=== PATIENT | female | born 1975 | race Caucasian/White ===

== ENCOUNTER 2020-05-31 17:38 | Inpatient (IN) | payer OTHER ==
[~2020-05-31] VITALS: Ht 180.3 cm; Wt 98.9 kg
[~2020-05-31 17:38] MED LIST: AMOX1TAB61 PO; CYCL10TA2 PO; DULA0.75 SQ; FLUC100T7 PO; INSU100C SQ; INSU100I13 SQ; METF500T16 PO; PANT20TA2 PO; PREG-9 PO
--- NOTE | 2020-05-31 18:33 | PHYS DOC ---
Past Medical History Past Medical History: Diabetes-Type II, Fibromyalgia Past Surgical History: Hysterectomy Smoking Status: Current Every Day Smoker Alcohol Use: None General Adult EDM: Chief Complaint: TOE PROBLEM HPI: HPI: Patient is a 45 year old female with left great toe pain over the last 2 weeks. Patient had some outside imaging which evidently showed glass in the area. Patient's been followed with wound care and there is an ulcer present and p atient was to be a direct admit for amputation. Patient denies any fevers or chills. Patient states the pain is moderate and worse with palpation and movement. Patient states the pain is nonradiating. Review of Systems: Review of Systems: Constitutional: Denies fever or chills Eyes: Denies change in visual acuity HENT: Denies sore throat Respiratory: Denies cough or shortness of breath Cardiovascular: Denies chest pain or edema GI: Denies abdominal pain, nausea, vomiting, or diarrhea : Denies dysuria Musculoskeletal: Denies back pain or joint pain Integument: Denies rash Neurologic: Denies headache or focal weakness Psychiatric: Denies depression or anxiety Heart Score: Risk Factors: Risk Factors: DM, Current or recent (<one month) smoker, HTN, HLP, family history of CAD, obesity. Risk Scores: Score 0 - 3: 2.5% MACE over next 6 weeks - Discharge Home Score 4 - 6: 20.3% MACE over next 6 weeks - Admit for Clinical Observation Score 7 - 10: 72.7% MACE over next 6 weeks - Early Invasive Strategies Allergies: Allergies: Allergies Coded Allergies Type Severity Reaction Last Updated Verified No Known Drug Allergies 06/14/19 No Physical Exam: PE: Constitutional: Well developed, well nourished, no acute distress, non-toxic appearance. HENT: No trismus Eyes: Conjunctiva clear, EOMI Neck: Normal range of motion, no tenderness, supple, no stridor. 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 Lungs & Thorax: No respiratory distress Abdomen: No distension Skin: Diffuse: Intact, no rash Back: Full ROM Extremities: Partial amputation already present on left great toe. There is mild erythema. There is a mild ulceration at the base. Neurologic: Alert and oriented X 3, normal motor function, , no focal deficits noted. Psychologic: Affect normal, judgement normal, mood normal. Current Patient Data: Labs: Laboratory Tests Test 05/31/20 18:00 05/31/20 21:43 White Blood Count 5.2 x10^3/uL Red Blood Count 5.00 x10^6/uL Hemoglobin 14.9 g/dL Hematocrit 44.0 % Mean Corpuscular Volume 88 fL Mean Corpuscular Hemoglobin 30 pg Mean Corpuscular Hemoglobin Concent 34 g/dL Red Cell Distribution Width 13.2 % Platelet Count 242 x10^3/uL Neutrophils (%) (Auto) 44 % Lymphocytes (%) (Auto) 46 % Monocytes (%) (Auto) 8 % Eosinophils (%) (Auto) 2 % Basophils (%) (Auto) 1 % Neutrophils # (Auto) 2.3 x10^3/uL Lymphocytes # (Auto) 2.4 x10^3/uL Monocytes # (Auto) 0.4 x10^3/uL Eosinophils # (Auto) 0.1 x10^3/uL Basophils # (Auto) 0.0 x10^3/uL Prothrombin Time 12.0 SEC Prothromb Time International Ratio 0.9 Activated Partial Thromboplast Time 32 SEC Sodium Level 132 mmol/L Potassium Level 3.9 mmol/L Chloride Level 94 mmol/L Carbon Dioxide Level 25 mmol/L Anion Gap 13 Blood Urea Nitrogen 17 mg/dL Creatinine 0.6 mg/dL Estimated GFR (Cockcroft-Gault) 108.6 BUN/Creatinine Ratio 28 Glucose Level 402 mg/dL Calcium Level 9.0 mg/dL Total Bilirubin 0.2 mg/dL Aspartate Amino Transf (AST/SGOT) 26 U/L Alanine Aminotransferase (ALT/SGPT) 27 U/L Alkaline Phosphatase 69 U/L Total Protein 7.1 g/dL Albumin 3.3 g/dL Albumin/Globulin Ratio 0.9 Glucose (Fingerstick) 327 mg/dL Vital Signs: Vital Signs Date Time Temp Pulse Resp B/P (MAP) Pulse Ox O2 Delivery O2 Flow Rate FiO2 05/31/20 21:00 80 18 136/84 (101) 100 Room Air 05/31/20 20:00 82 18 129/82 (98) 98 Room Air 05/31/20 19:00 78 18 135/78 (97) 97 Room Air 05/31/20 17:48 98.4 90 18 140/73 (95) 100 Room Air 98.4 Vital Signs Date Time Temp Pulse Resp B/P (MAP) Pulse Ox O2 Delivery O2 Flow Rate FiO2 05/31/20 17:48 98.4 90 18 140/73 (95) 100 Room Air 98.4 EKG: EKG: [] Radiology/Procedures: Radiology/Procedures: [][place] [address] IMAGING REPORT Signed PATIENT: AMAYA NEVAREZ ACCOUNT: [id number] : 1975 LOCATION: ER AGE: 45 SEX: F EXAM STATUS: REG ER ORD. PHYSICIAN: ROGELIO FOUNTAIN MD REASON: infection, r/o fb PROCEDURE: FOOT LEFT 3V 3 view left foot HISTORY: Clinical certain for possible foreign body AP lateral oblique views There has been prior amputation of the distal phalanx of the great toe. The remaining visualized osseous structures appear normal. There is no radiopaque foreign body. IMPRESSION: No acute findings. Electronically signed by: Luisito Valdes III, MD (05/31/2020 7:30 PM) [facility] DICTATED and SIGNED BY: LUISITO VALDES III, MD DATE: 05/31/20 [id number] [place] [address] IMAGING REPORT Signed PATIENT: AMAYA NEVAREZ ACCOUNT: [id number] : 1975 LOCATION: ER AGE: 45 SEX: F EXAM STATUS: REG ER ORD. PHYSICIAN: ROGELIO FOUNTAIN MD REASON: preop PROCEDURE: PORTABLE CHEST 1V Examination: PORTABLE CHEST 1V History: Preoperative evaluation Comparison/Correlation: None Findings: Portable frontal view chest was obtained. Heart size and pulmonary vessels are normal. No infiltrate or pleural effusion. No pneumothorax. Bony structures are unremarkable. Impression: No active disease. Electronically signed by: Jimmy iFsh MD (05/31/2020 7:13 PM) [place] [id number] DICTATED and SIGNED BY: JIMMY FISH MD DATE: 05/31/201912 Course & Med Decision Making: Course & Med Decision Making Pertinent Labs and Imaging studies reviewed. (See chart for details) [] Discussed with Dr. Hagen who will admit the patient. Preop test is been ordered. Patient clinically stable. Patient given dose IV antibiotics. Discussed the case with Dr. Hagen who says to put a vascular consult in computer which was done. Dragon Disclaimer: Dragon Disclaimer: This electronic medical record was generated, in whole or in part, using a voice recognition dictation system. Departure Departure Impression: Primary Impression: Toe osteomyelitis, left Disposition: ADMITTED INPATIENT Admitting Physician: REBECCA (naheed) Condition: STABLE Referrals: DON ESPOSITO (PCP) Justicifation of Admission Dx: Justifications for Admission: Justification of Admission Dx: Yes ROGELIO FOUNTAIN MD May 31, 2020 18:33
[2020-05-31 18:43] LABS: BASO % 1 % (0-3); EOS # 0.1 x10^3/uL (0.0-0.7); EOS % 2 % (0-3); HEMOGLOBIN 14.9 g/dL (12.0-15.5); LYMPH # 2.4 x10^3/uL (1.0-4.8); LYMPH % 46 % (24-48); MEAN CORPUSCULAR HEMOGLOBIN 30 pg (25-35); MEAN CORPUSCULAR HGB CONC 34 g/dL (31-37); MEAN CORPUSCULAR VOLUME 88 fL (79-100); MONO # 0.4 x10^3/uL (0.0-1.1); MONO % 8 % (0-9); NEUT # 2.3 x10^3/uL (1.8-7.7); NEUT % 44 % (31-73); PLATELET COUNT 242 x10^3/uL (140-400); RED CELL DISTRIBUTION WIDTH 13.2 % (11.5-14.5); WHITE BLOOD COUNT 5.2 x10^3/uL (4.0-11.0)
[2020-05-31] MEDS ORDERED: MORPHINE SULFATE 4 MG/ML VIAL. IV ONE (18:45)
[2020-05-31] MEDS ORDERED: ONDANSETRON PF 4 MG/2 ML VIAL. IV PRN (18:45)
[2020-05-31] MEDS ORDERED: MORPHINE SULFATE 2 MG/ML VIAL. IV PRN (18:45)
[2020-05-31 18:56] LABS: CREATININE 0.6 mg/dL (0.6-1.0); GFR 108.6; POTASSIUM 3.9 mmol/L (3.5-5.1)
[2020-05-31 18:59] LABS: ALBUMIN 3.3 g/dL (3.4-5.0); ALBUMIN/GLOBULIN RATIO 0.9 (1.0-1.7); TOTAL BILIRUBIN 0.2 mg/dL (0.2-1.0); TOTAL PROTEIN 7.1 g/dL (6.4-8.2)
[2020-05-31] MEDS ORDERED: VANCOMYCIN 1GM IVPB FOR OMNI 250 ML IV ONE (19:00)
--- NOTE | 2020-05-31 19:16 | EKG ---
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
--- NOTE | 2020-05-31 19:16 | RAD ---
Examination: PORTABLE CHEST 1V History: Preoperative evaluation Comparison/Correlation: None Findings: Portable frontal view chest was obtained. Heart size and pulmonary vessels are normal. No infiltrate or pleural effusion. No pneumothorax. Bony structures are unremarkable. Impression: No active disease. Electronically signed by: Jimmy Maria MD (05/31/2020 7:13 PM) [facility]
--- NOTE | 2020-05-31 19:33 | RAD ---
3 view left foot HISTORY: Clinical certain for possible foreign body AP lateral oblique views There has been prior amputation of the distal phalanx of the great toe. The remaining visualized osseous structures appear normal. There is no radiopaque foreign body. IMPRESSION: No acute findings. Electronically signed by: Jasper Perez III, MD (05/31/2020 7:30 PM) [facility]
[2020-05-31] MEDS ORDERED: HYDROmorphone 2 MG/ML VIAL IV PRN (19:45)
--- NOTE | 2020-05-31 19:46 | PDOC1 ---
History and Physical Date of Admission Date of Admission DATE: 05/31/20 TIME: 19:45 Identification/Chief Complaint Chief Complaint seen in [place] , 45 year old female with left great toe pain over the last 2 weeks. Patient's been followed with wound care and there is an ulcer present // tentative plans admit for amputation. denies any fevers or chills. // pain is moderate and worse with palpation and movement. // pain is nonradiating., HAS KNOWN PVD 2018 Past Medical History Past Medical History Past Medical History Past Medical History Past Medical History: Diabetes-Type II, Fibromyalgia HX DIABETES X 14 YRS Past Surgical History: Hysterectomy Smoking Status: Current Every Day Smoker Alcohol Use: None FHX COPD Pulmonary: No pertinent hx Heme/Onc: No pertinent hx Rheumatologic: Fibromyalgia Infectious disease: Other (osteomyelitis toe) ENT: No pertinent hx Endocrine: Diabetes Past Surgical History Past Surgical History: Hysterectomy Family History Family History PMH: PMH: DM, fibromyalgia, neuropathy, PAD hysterectomy FH: Family History: Other (adopted) Social History: Smoke: <1 pack per day ALCOHOL: rare Drugs: None Family History: High Cholestrol, Hypertension Social History Smoke: <1 pack per day ALCOHOL: occassional Drugs: None Current Medications Current Medications Current Medications Morphine Sulfate (Morphine Sulfate) 4 mg 1X ONCE IV Last administered on 05/31/20at 18:44; Start 05/31/20 at 18:45; Stop 05/31/20 at 18:46; Status DC Vancomycin HCl 250 ml @ 250 mls/hr 1X ONCE IV Last administered on 05/31/20at 18:44; Start 05/31/20 at 19:00; Stop 05/31/20 at 19:59 Ondansetron HCl (Zofran) 4 mg PRN Q8HRS PRN IV NAUSEA/VOMITING; Start 05/31/20 at 18:45; Stop 06/01/20 at 18:44 Morphine Sulfate (Morphine Sulfate) 2 mg PRN Q2HR PRN IV PAIN; Start 05/31/20 at 18:45; Stop 05/31/20 at 19:34; Status DC Hydromorphone HCl (Dilaudid) 1 mg PRN Q3HRS PRN IV PAIN Last administered on 05/31/20at 19:41; Start 05/31/20 at 19:45; Stop 06/01/20 at 19:44 Insulin Human Regular (HumuLIN R VIAL) 6 unit 1X SQ ; Start 05/31/20 at 20:15 Active Scripts Active Humalog (Insulin Lispro) 100 Unit/1 Ml Cartridge 15 Unit SQ TID 30 Days Protonix (Pantoprazole Sodium) 20 Mg Tablet.dr 40 Mg PO DAILY 30 Days Lantus Solostar (Insulin Glargine,Hum.rec.anlog) 100 Unit/1 Ml Insuln.pen 40 Unit SQ QHS 30 Days Diflucan (Fluconazole) 100 Mg Tablet 100 Mg PO DAILY 5 Days Augmentin 875-125 Tablet (Amoxicillin/Potassium Clav) 1 Each Tablet 1 Tab PO BID 5 Days Reported Trulicity (Dulaglutide) 0.75 Mg/0.5 Ml Pen.injctr 0.75 Mg SQ WEEKLY Metformin Hcl 500 Mg Tablet 500 Mg PO TIDWMEALS Cyclobenzaprine Hcl 10 Mg Tablet 1 Tab PO QHS PRN Lyrica (Pregabalin) 75 Mg Capsule 1 Cap PO DAILY07 Lyrica (Pregabalin) 75 Mg Capsule 3 Cap PO HS Allergies Allergies: Coded Allergies: No Known Drug Allergies (Unverified , 06/14/19) ROS Review of System Constitutional: Denies fever or chills Eyes: Denies change in visual acuity HENT: Denies sore throat Respiratory: Denies cough or shortness of breath Cardiovascular: Denies chest pain or edema GI: Denies abdominal pain, nausea, vomiting, or diarrhea : Denies dysuria Musculoskeletal: Denies back pain or joint pain Integument: Denies rash Neurologic: Denies headache or focal weakness Psychiatric: Denies depression or anxiety 14 pt ros otherwise neg PSYCHOLOGICAL ROS: No: Anxiety, Behavioral Disorder, Concentration difficultie, Decreased libido, Depression, Disorientation, Hallucinations, Hostility, Irritablity, Memory difficulties, Mood Swings, Obsessive thoughts, Physical abuse, Sexual abuse, Sleep disturbances, Suicidal ideation, Other ALLERGY AND IMMUNOLOGY: No: Hives, Insect Bite Sensitivity, Itchy/Watery Eyes, Nasal Congestion, Post Nasal Drip, Seasonal Allergies, Other Hematological and Lymphatic: No: Bleeding Problems, Blood Clots, Blood Transfusions, Brusing, Night Sweats, Pallor, Swollen Lymph Nodes, Other Respiratory: No: Cough, Hemoptysis, Orthopnea, Pleuritic Pain, Shortness of breath, SOB with excertion, Sputum Changes, Stridor, Tachypnea, Wheezing, Other Cardiovascular: No Chest Pain, No Palpitations, No Orthopnea, No Paroxysmal Noc. Dyspnea, No Edema, No Lt Headedness, No Other Gastrointestinal: No Nausea, No Vomiting, No Abdominal Pain, No Diarrhea, No Constipation, No Melena, No Hematochezia, No Other Musculoskeletal: Yes Gait Disturbance, Yes Joint Pain Neurological: Yes Gait Disturbance; No Behavorial Changes, No Bowel/Bladder ControlChng, No Confusion, No Dizziness, No Headaches, No Impaired Coord/balance, No Memory Loss, No Numbness/Tingling, No Seizures, No Speech Problems, No Tremors, No Visual Changes, No Weakness, No Other Skin: Yes Skin Lesion Changes Physical Exam Physical Exam Constitutional: Well developed, well nourished, no acute distress, non-toxic appearance. HENT: No trismus Eyes: Conjunctiva clear, EOMI Neck: Normal range of motion, no tenderness, supple, no stridor. 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 Lungs & Thorax: No respiratory distress Abdomen: No distension no tenderness Back: Full ROM Extremities: Partial amputation already present on left great toe. There is mild erythema. There is a mild ulceration at the base. Neurologic: Alert and oriented X 3, normal motor function, , no focal deficits noted. Psychologic: Affect normal, judgement normal, mood normal. General: Alert, Oriented X3, Cooperative, No acute distress HEENT: Atraumatic, PERRLA, EOMI, Mucous membr. moist/pink Lungs: Clear to auscultation Heart: RRR, no thrills, no gallops, no murmurs Breasts: Not examined Abdomen: Soft Rectal Exam: not examined PELVIC: Examination not indicated Extremities: No cyanosis Neuro: Normal speech, Strength at 5/5 X4 ext, Cranial nerves 3-12 NL Psych/Mental Status: Mental status NL, Mood NL Vitals Vitals Vital Signs Date Time Temp Pulse Resp B/P (MAP) Pulse Ox O2 Delivery O2 Flow Rate FiO2 05/31/20 17:48 98.4 90 18 140/73 (95) 100 Room Air 98.4 Labs Labs Laboratory Tests Test 05/31/20 18:00 White Blood Count 5.2 x10^3/uL (4.0-11.0) Red Blood Count 5.00 x10^6/uL (3.50-5.40) Hemoglobin 14.9 g/dL (12.0-15.5) Hematocrit 44.0 % (36.0-47.0) Mean Corpuscular Volume 88 fL (79-100) Mean Corpuscular Hemoglobin 30 pg (25-35) Mean Corpuscular Hemoglobin Concent 34 g/dL (31-37) Red Cell Distribution Width 13.2 % (11.5-14.5) Platelet Count 242 x10^3/uL (140-400) Neutrophils (%) (Auto) 44 % (31-73) Lymphocytes (%) (Auto) 46 % (24-48) Monocytes (%) (Auto) 8 % (0-9) Eosinophils (%) (Auto) 2 % (0-3) Basophils (%) (Auto) 1 % (0-3) Neutrophils # (Auto) 2.3 x10^3/uL (1.8-7.7) Lymphocytes # (Auto) 2.4 x10^3/uL (1.0-4.8) Monocytes # (Auto) 0.4 x10^3/uL (0.0-1.1) Eosinophils # (Auto) 0.1 x10^3/uL (0.0-0.7) Basophils # (Auto) 0.0 x10^3/uL (0.0-0.2) Prothrombin Time 12.0 SEC (11.7-14.0) Prothromb Time International Ratio 0.9 (0.8-1.1) Activated Partial Thromboplast Time 32 SEC (24-38) Sodium Level 132 mmol/L (136-145) Potassium Level 3.9 mmol/L (3.5-5.1) Chloride Level 94 mmol/L (98-107) Carbon Dioxide Level 25 mmol/L (21-32) Anion Gap 13 (6-14) Blood Urea Nitrogen 17 mg/dL (7-20) Creatinine 0.6 mg/dL (0.6-1.0) Estimated GFR (Cockcroft-Gault) 108.6 BUN/Creatinine Ratio 28 (6-20) Glucose Level 402 mg/dL (70-99) Calcium Level 9.0 mg/dL (8.5-10.1) Total Bilirubin 0.2 mg/dL (0.2-1.0) Aspartate Amino Transf (AST/SGOT) 26 U/L (15-37) Alanine Aminotransferase (ALT/SGPT) 27 U/L (14-59) Alkaline Phosphatase 69 U/L (46-116) Total Protein 7.1 g/dL (6.4-8.2) Albumin 3.3 g/dL (3.4-5.0) Albumin/Globulin Ratio 0.9 (1.0-1.7) Laboratory Tests Test 05/31/20 18:00 White Blood Count 5.2 x10^3/uL (4.0-11.0) Red Blood Count 5.00 x10^6/uL (3.50-5.40) Hemoglobin 14.9 g/dL (12.0-15.5) Hematocrit 44.0 % (36.0-47.0) Mean Corpuscular Volume 88 fL (79-100) Mean Corpuscular Hemoglobin 30 pg (25-35) Mean Corpuscular Hemoglobin Concent 34 g/dL (31-37) Red Cell Distribution Width 13.2 % (11.5-14.5) Platelet Count 242 x10^3/uL (140-400) Neutrophils (%) (Auto) 44 % (31-73) Lymphocytes (%) (Auto) 46 % (24-48) Monocytes (%) (Auto) 8 % (0-9) Eosinophils (%) (Auto) 2 % (0-3) Basophils (%) (Auto) 1 % (0-3) Neutrophils # (Auto) 2.3 x10^3/uL (1.8-7.7) Lymphocytes # (Auto) 2.4 x10^3/uL (1.0-4.8) Monocytes # (Auto) 0.4 x10^3/uL (0.0-1.1) Eosinophils # (Auto) 0.1 x10^3/uL (0.0-0.7) Basophils # (Auto) 0.0 x10^3/uL (0.0-0.2) Prothrombin Time 12.0 SEC (11.7-14.0) Prothromb Time International Ratio 0.9 (0.8-1.1) Activated Partial Thromboplast Time 32 SEC (24-38) Sodium Level 132 mmol/L (136-145) Potassium Level 3.9 mmol/L (3.5-5.1) Chloride Level 94 mmol/L (98-107) Carbon Dioxide Level 25 mmol/L (21-32) Anion Gap 13 (6-14) Blood Urea Nitrogen 17 mg/dL (7-20) Creatinine 0.6 mg/dL (0.6-1.0) Estimated GFR (Cockcroft-Gault) 108.6 BUN/Creatinine Ratio 28 (6-20) Glucose Level 402 mg/dL (70-99) Calcium Level 9.0 mg/dL (8.5-10.1) Total Bilirubin 0.2 mg/dL (0.2-1.0) Aspartate Amino Transf (AST/SGOT) 26 U/L (15-37) Alanine Aminotransferase (ALT/SGPT) 27 U/L (14-59) Alkaline Phosphatase 69 U/L (46-116) Total Protein 7.1 g/dL (6.4-8.2) Albumin 3.3 g/dL (3.4-5.0) Albumin/Globulin Ratio 0.9 (1.0-1.7) Images Images EX: F EXAM STATUS: ADM IN ORD. PHYSICIAN: ARCELIA FAITH MD REASON: ? PAD - tobacco abuse and DM PROCEDURE: ARTERIAL STUDY LOWER EXT BI Bilateral lower extremity arterial Doppler ultrasound HISTORY: Peripheral artery disease. Tobacco abuse. TECHNIQUE: Color Doppler, grayscale and duplex analysis performed of the right and left lower extremity arterial structures, from the common femoral artery through the runoff vessels. COMPARISON: None are available All velocity measurements are in centimeters per second. Right leg: Biphasic waveforms throughout, except for monophasic waveforms at the anterior tibial artery and dorsalis pedis artery. Critical segmental velocity elevation of the distal superficial femoral artery, 249, as compared with 120 at the mid superficial femoral artery, compatible with a significant or greater than 50% stenosis. Left leg: Biphasic common femoral artery and proximal superficial femoral artery. Monophasic waveforms distal to this. No evidence of critical segmental velocity elevation. IMPRESSION: 1. Findings compatible with significant greater than 50% stenosis at the right distal superficial femoral artery. 2. Extensive bilateral peripheral artery disease. Electronically signed by: Rich Mancia MD (06/15/2019 5:21 PM) [facility] DICTATED and SIGNED BY: RICH MANCIA MD DATE: 06/15/19 1721 SEX: F EXAM STATUS: REG ER ORD. PHYSICIAN: ROGELIO FOUNTAIN MD REASON: infection, r/o fb PROCEDURE: FOOT LEFT 3V 3 view left foot HISTORY: Clinical certain for possible foreign body AP lateral oblique views There has been prior amputation of the distal phalanx of the great toe. The remaining visualized osseous structures appear normal. There is no radiopaque foreign body. IMPRESSION: No acute findings. Electronically signed by: Luisito Valdes III, MD (05/31/2020 7:30 PM) [facility] DICTATED and SIGNED BY: LUISITO VALDES III, MD DATE: 05/31/201929 VTE Prophylaxis Ordered VTE Prophylaxis Devices: No VTE Pharmacological Prophylaxi: Yes Assessment/Plan Assessment/Plan IMPRESSION Diabetic foot infection, acute hx Left first toe osteomyelitis, status post left first toe amputation through the proximal phalanx with primary closure. 2018 prior amputation of the distal phalanx of the great t 06/2019 Findings compatible with significant greater than 50% stenosis at the right distal superficial femoral artery.Extensive bilateral peripheral artery disease. by arterial doppler Diabetes Tobacco abuse disorder morbid obesity hx diabetic neuropathy plan admit consult VASCULAR SURGERY BLOOD CULTUE X 1\ DVT PROPHYLAXIS Emperic iv antibiotics., vanc, zosyn pending id consult wound care to see ID CONSULT a1c covid-19 screening D/W ER DR Bautistation of Admission Dx: Justifications for Admission: Justification of Admission Dx: Yes Cellulitis: Cellulitis Comments: DIABETIC FOOT, PVD MANNY SANTIZO MD May 31, 2020 19:46
[2020-05-31] MEDS ORDERED: INSULIN REGULAR 100 UNIT/ML 3ML VIAL. SQ SCH (20:15)
[2020-05-31] MEDS ORDERED: INSULIN REGULAR 100 UNIT/ML 3ML VIAL. SQ ONE (21:45)
[2020-05-31] MEDS ORDERED: INSULIN REGULAR 100 UNIT/ML 3ML VIAL. ONE (21:45)
[2020-05-31] MEDS: PIPERACILLIN/TAZOBACTAM 3.375 GM in IV NORMAL SALINE 50ML 50 ML IV SCH ×2 (21:58→22:53)
[2020-05-31 22:25] VITALS: BP 123/77
[2020-05-31] MEDS: PREGABALIN 75 MG CAPSULE PO SCH (22:54)
[2020-05-31] MEDS: IV NORMAL SALINE 1000ML BAG 1,000 ML IV SCH (23:27)
[2020-05-31] MEDS: HYDROmorphone 2 MG/ML VIAL IV PRN (23:28)
[2020-06-01] VITALS (10 sets, daily range): BP systolic 95–128; BP diastolic 46–74
[2020-06-01] MEDS: HYDROmorphone 2 MG/ML VIAL IV PRN ×4 (02:21→22:12)
[2020-06-01] MEDS: PIPERACILLIN/TAZOBACTAM 3.375 GM in IV NORMAL SALINE 50ML 50 ML IV SCH ×3 (05:45→17:27)
[2020-06-01] MEDS: PREGABALIN 75 MG CAPSULE PO SCH ×3 (06:37→22:12)
[2020-06-01] MEDS: PANTOPRAZOLE 40 MG TABLET.DR. PO SCH (07:30)
[2020-06-01] MEDS: IV NORMAL SALINE 1000ML BAG 1,000 ML IV SCH ×2 (07:56→19:00)
--- NOTE | 2020-06-01 10:40 | NUR ---
SW following. Discussed with RN, pt from home with family, room air, NPO. Pt follows at the wound clinic, tentative plans for amputation. RN advised no SW needs at this time, SW will continue to follow.
[2020-06-01] MEDS: traMADol 50 MG TABLET PO PRN ×2 (10:48→17:45)
--- NOTE | 2020-06-01 12:09 | PDOC ---
PROGRESS NOTES Chief Complaint Chief Complaint Diabetic foot infection, acute hx Left first toe osteomyelitis, status post left first toe amputation through the proximal phalanx with primary closure. 2018 prior amputation of the distal phalanx of the great t 06/2019 Findings compatible with significant greater than 50% stenosis at the right distal superficial femoral artery.Extensive bilateral peripheral artery disease. by arterial doppler Diabetes Tobacco abuse disorder morbid obesity hx diabetic neuropathy Plan: follow VASCULAR SURGERY recommendations follow BLOOD CULTUE X 1\ DVT PROPHYLAXIS Empiric iv antibiotics., vanc, zosyn pending id consult wound care to see ID CONSULT [id number] covid-19 screening negative History of Present Illness History of Present Illness No acute events reported overnight, case discussed with nursing staff patient in no acute distress no complaints during my visit Vitals Vitals Vital Signs Date Time Temp Pulse Resp B/P (MAP) Pulse Ox O2 Delivery O2 Flow Rate FiO2 06/01/20 11:53 16 Room Air 06/01/20 11:06 97.4 81 110/66 (81) 95 97.4 Physical Exam General: Alert, Oriented X3, Cooperative, No acute distress Abdomen: Soft Extremities: No cyanosis Labs LABS Laboratory Tests Test 05/31/20 18:00 05/31/20 21:43 06/01/20 11:56 White Blood Count 5.2 x10^3/uL (4.0-11.0) Red Blood Count 5.00 x10^6/uL (3.50-5.40) Hemoglobin 14.9 g/dL (12.0-15.5) Hematocrit 44.0 % (36.0-47.0) Mean Corpuscular Volume 88 fL (79-100) Mean Corpuscular Hemoglobin 30 pg (25-35) Mean Corpuscular Hemoglobin Concent 34 g/dL (31-37) Red Cell Distribution Width 13.2 % (11.5-14.5) Platelet Count 242 x10^3/uL (140-400) Neutrophils (%) (Auto) 44 % (31-73) Lymphocytes (%) (Auto) 46 % (24-48) Monocytes (%) (Auto) 8 % (0-9) Eosinophils (%) (Auto) 2 % (0-3) Basophils (%) (Auto) 1 % (0-3) Neutrophils # (Auto) 2.3 x10^3/uL (1.8-7.7) Lymphocytes # (Auto) 2.4 x10^3/uL (1.0-4.8) Monocytes # (Auto) 0.4 x10^3/uL (0.0-1.1) Eosinophils # (Auto) 0.1 x10^3/uL (0.0-0.7) Basophils # (Auto) 0.0 x10^3/uL (0.0-0.2) Prothrombin Time 12.0 SEC (11.7-14.0) Prothromb Time International Ratio 0.9 (0.8-1.1) Activated Partial Thromboplast Time 32 SEC (24-38) Sodium Level 132 mmol/L (136-145) Potassium Level 3.9 mmol/L (3.5-5.1) Chloride Level 94 mmol/L (98-107) Carbon Dioxide Level 25 mmol/L (21-32) Anion Gap 13 (6-14) Blood Urea Nitrogen 17 mg/dL (7-20) Creatinine 0.6 mg/dL (0.6-1.0) Estimated GFR (Cockcroft-Gault) 108.6 BUN/Creatinine Ratio 28 (6-20) Glucose Level 402 mg/dL (70-99) Calcium Level 9.0 mg/dL (8.5-10.1) Total Bilirubin 0.2 mg/dL (0.2-1.0) Aspartate Amino Transf (AST/SGOT) 26 U/L (15-37) Alanine Aminotransferase (ALT/SGPT) 27 U/L (14-59) Alkaline Phosphatase 69 U/L (46-116) Total Protein 7.1 g/dL (6.4-8.2) Albumin 3.3 g/dL (3.4-5.0) Albumin/Globulin Ratio 0.9 (1.0-1.7) Glucose (Fingerstick) 327 mg/dL (70-99) 306 mg/dL (70-99) Review of Systems Review of Systems 10 point review of system reviewed and found negative noncontributory only pertinent as per HPI Comment Review of Relevant I have reviewed the following items filemon (where applicable) has been applied. Labs Laboratory Tests Test 05/31/20 18:00 05/31/20 21:43 06/01/20 11:56 White Blood Count 5.2 x10^3/uL (4.0-11.0) Red Blood Count 5.00 x10^6/uL (3.50-5.40) Hemoglobin 14.9 g/dL (12.0-15.5) Hematocrit 44.0 % (36.0-47.0) Mean Corpuscular Volume 88 fL (79-100) Mean Corpuscular Hemoglobin 30 pg (25-35) Mean Corpuscular Hemoglobin Concent 34 g/dL (31-37) Red Cell Distribution Width 13.2 % (11.5-14.5) Platelet Count 242 x10^3/uL (140-400) Neutrophils (%) (Auto) 44 % (31-73) Lymphocytes (%) (Auto) 46 % (24-48) Monocytes (%) (Auto) 8 % (0-9) Eosinophils (%) (Auto) 2 % (0-3) Basophils (%) (Auto) 1 % (0-3) Neutrophils # (Auto) 2.3 x10^3/uL (1.8-7.7) Lymphocytes # (Auto) 2.4 x10^3/uL (1.0-4.8) Monocytes # (Auto) 0.4 x10^3/uL (0.0-1.1) Eosinophils # (Auto) 0.1 x10^3/uL (0.0-0.7) Basophils # (Auto) 0.0 x10^3/uL (0.0-0.2) Prothrombin Time 12.0 SEC (11.7-14.0) Prothromb Time International Ratio 0.9 (0.8-1.1) Activated Partial Thromboplast Time 32 SEC (24-38) Sodium Level 132 mmol/L (136-145) Potassium Level 3.9 mmol/L (3.5-5.1) Chloride Level 94 mmol/L (98-107) Carbon Dioxide Level 25 mmol/L (21-32) Anion Gap 13 (6-14) Blood Urea Nitrogen 17 mg/dL (7-20) Creatinine 0.6 mg/dL (0.6-1.0) Estimated GFR (Cockcroft-Gault) 108.6 BUN/Creatinine Ratio 28 (6-20) Glucose Level 402 mg/dL (70-99) Calcium Level 9.0 mg/dL (8.5-10.1) Total Bilirubin 0.2 mg/dL (0.2-1.0) Aspartate Amino Transf (AST/SGOT) 26 U/L (15-37) Alanine Aminotransferase (ALT/SGPT) 27 U/L (14-59) Alkaline Phosphatase 69 U/L (46-116) Total Protein 7.1 g/dL (6.4-8.2) Albumin 3.3 g/dL (3.4-5.0) Albumin/Globulin Ratio 0.9 (1.0-1.7) Glucose (Fingerstick) 327 mg/dL (70-99) 306 mg/dL (70-99) Laboratory Tests Test 05/31/20 18:00 05/31/20 21:43 06/01/20 11:56 White Blood Count 5.2 x10^3/uL (4.0-11.0) Red Blood Count 5.00 x10^6/uL (3.50-5.40) Hemoglobin 14.9 g/dL (12.0-15.5) Hematocrit 44.0 % (36.0-47.0) Mean Corpuscular Volume 88 fL (79-100) Mean Corpuscular Hemoglobin 30 pg (25-35) Mean Corpuscular Hemoglobin Concent 34 g/dL (31-37) Red Cell Distribution Width 13.2 % (11.5-14.5) Platelet Count 242 x10^3/uL (140-400) Neutrophils (%) (Auto) 44 % (31-73) Lymphocytes (%) (Auto) 46 % (24-48) Monocytes (%) (Auto) 8 % (0-9) Eosinophils (%) (Auto) 2 % (0-3) Basophils (%) (Auto) 1 % (0-3) Neutrophils # (Auto) 2.3 x10^3/uL (1.8-7.7) Lymphocytes # (Auto) 2.4 x10^3/uL (1.0-4.8) Monocytes # (Auto) 0.4 x10^3/uL (0.0-1.1) Eosinophils # (Auto) 0.1 x10^3/uL (0.0-0.7) Basophils # (Auto) 0.0 x10^3/uL (0.0-0.2) Prothrombin Time 12.0 SEC (11.7-14.0) Prothromb Time International Ratio 0.9 (0.8-1.1) Activated Partial Thromboplast Time 32 SEC (24-38) Sodium Level 132 mmol/L (136-145) Potassium Level 3.9 mmol/L (3.5-5.1) Chloride Level 94 mmol/L (98-107) Carbon Dioxide Level 25 mmol/L (21-32) Anion Gap 13 (6-14) Blood Urea Nitrogen 17 mg/dL (7-20) Creatinine 0.6 mg/dL (0.6-1.0) Estimated GFR (Cockcroft-Gault) 108.6 BUN/Creatinine Ratio 28 (6-20) Glucose Level 402 mg/dL (70-99) Calcium Level 9.0 mg/dL (8.5-10.1) Total Bilirubin 0.2 mg/dL (0.2-1.0) Aspartate Amino Transf (AST/SGOT) 26 U/L (15-37) Alanine Aminotransferase (ALT/SGPT) 27 U/L (14-59) Alkaline Phosphatase 69 U/L (46-116) Total Protein 7.1 g/dL (6.4-8.2) Albumin 3.3 g/dL (3.4-5.0) Albumin/Globulin Ratio 0.9 (1.0-1.7) Glucose (Fingerstick) 327 mg/dL (70-99) 306 mg/dL (70-99) Medications Current Medications Morphine Sulfate (Morphine Sulfate) 4 mg 1X ONCE IV Last administered on 05/31/20at 18:44; Start 05/31/20 at 18:45; Stop 05/31/20 at 18:46; Status DC Vancomycin HCl 250 ml @ 250 mls/hr 1X ONCE IV Last administered on 05/31/20at 18:44; Start 05/31/20 at 19:00; Stop 05/31/20 at 19:59; Status DC Ondansetron HCl (Zofran) 4 mg PRN Q8HRS PRN IV NAUSEA/VOMITING; Start 05/31/20 at 18:45; Stop 06/01/20 at 18:44 Morphine Sulfate (Morphine Sulfate) 2 mg PRN Q2HR PRN IV PAIN; Start 05/31/20 at 18:45; Stop 05/31/20 at 19:34; Status DC Hydromorphone HCl (Dilaudid) 1 mg PRN Q3HRS PRN IV PAIN Last administered on 05/31/20at 19:41; Start 05/31/20 at 19:45; Stop 05/31/20 at 19:45; Status DC Insulin Human Regular (HumuLIN R VIAL) 6 unit 1X SQ ; Start 05/31/20 at 20:15; Stop 05/31/20 at 21:38; Status DC Pregabalin (Lyrica) 75 mg DAILY07 PO Last administered on 06/01/20at 06:37; Start 06/01/20 at 07:00 Pregabalin (Lyrica) 225 mg HS PO Last administered on 05/31/20at 22:54; Start 05/31/20 at 21:00 Non-Formulary Medication (Dulaglutide (Trulicity)) 0.75 mg WEEKLY SQ ; Start 06/07/20 at 09:00; Status UNV Pantoprazole Sodium (Protonix) 40 mg DAILYAC PO ; Start 06/01/20 at 07:30 Piperacillin Sod/ Tazobactam Sod 3.375 gm/Sodium Chloride 50 ml @ 100 mls/hr Q6HRS IV Last administered on 06/01/20at 11:53; Start 05/31/20 at 22:00 Insulin Human Regular (HumuLIN R VIAL) 6 unit 1X ONCE SQ Last administered on 05/31/20at 21:45; Start 05/31/20 at 21:45; Stop 05/31/20 at 21:46; Status DC Hydromorphone HCl (Dilaudid) 0.5 mg PRN Q2HRS PRN IV SEVERE PAIN 7-10 Last admi nistered on 06/01/20at 05:45; Start 05/31/20 at 23:00 Sodium Chloride 1,000 ml @ 100 mls/hr Q10H IV Last administered on 06/01/20at 07:56; Start 05/31/20 at 23:00 Tramadol HCl (Ultram) 50 mg PRN Q6HRS PRN PO MILD TO MODERATE PAIN Last administered on 06/01/20at 10:48; Start 06/01/20 at 10:30 Active Scripts Active Humalog (Insulin Lispro) 100 Unit/1 Ml Cartridge 15 Unit SQ TID 30 Days Protonix (Pantoprazole Sodium) 20 Mg Tablet.dr 40 Mg PO DAILY 30 Days Lantus Solostar (Insulin Glargine,Hum.rec.anlog) 100 Unit/1 Ml Insuln.pen 40 Unit SQ QHS 30 Days Diflucan (Fluconazole) 100 Mg Tablet 100 Mg PO DAILY 5 Days Augmentin 875-125 Tablet (Amoxicillin/Potassium Clav) 1 Each Tablet 1 Tab PO BID 5 Days Reported Trulicity (Dulaglutide) 0.75 Mg/0.5 Ml Pen.injctr 0.75 Mg SQ WEEKLY Metformin Hcl 500 Mg Tablet 500 Mg PO TIDWMEALS Cyclobenzaprine Hcl 10 Mg Tablet 1 Tab PO QHS PRN Lyrica (Pregabalin) 75 Mg Capsule 1 Cap PO DAILY07 Lyrica (Pregabalin) 75 Mg Capsule 3 Cap PO HS Vitals/I & O Vital Sign - Last 24 Hours 05/31/20 05/31/20 05/31/20 05/31/20 17:48 19:00 20:00 21:00 Temp 98.4 98.4 Pulse 90 78 82 80 Resp 18 18 18 18 B/P (MAP) 140/73 (95) 135/78 (97) 129/82 (98) 136/84 (101) Pulse Ox 100 97 98 100 O2 Delivery Room Air Room Air Room Air Room Air 05/31/20 05/31/20 05/31/20 06/01/20 22:25 22:30 23:28 00:00 Temp 97.2 97.2 Pulse 96 Resp 18 B/P (MAP) 123/77 (92) Pulse Ox 96 O2 Delivery Room Air Room Air Room Air Room Air 06/01/20 06/01/20 06/01/20 06/01/20 02:21 03:00 05:45 06:19 Temp 97.9 97.9 Pulse 80 Resp 18 B/P (MAP) 100/66 (77) Pulse Ox 92 O2 Delivery Room Air Room Air Room Air Room Air 06/01/20 06/01/20 06/01/20 06/01/20 07:59 08:00 10:48 11:06 Temp 97.6 97.4 97.6 97.4 Pulse 72 81 Resp 20 16 B/P (MAP) 128/70 (89) 110/66 (81) Pulse Ox 94 95 O2 Delivery Room Air Room Air Room Air Room Air 06/01/20 11:53 Resp 16 O2 Delivery Room Air Intake and Output 05/31/20 05/31/20 06/01/20 15:00 23:00 07:00 Intake Total 250 ml 75 ml Balance 250 ml 75 ml Justicifation of Admission Dx: Justifications for Admission: Justification of Admission Dx: Yes Cellulitis: Cellulitis TRICE BROOKS MD Jun 01, 2020 12:09
[2020-06-01] MEDS ORDERED: DEXTROSE 50% 25 GM / 50ML DISP.SYRIN. IV PRN (12:15)
--- NOTE | 2020-06-01 12:21 | PDOC ---
Infectious Disease Note Vital Signs: Vital Signs Vital Signs Date Time Temp Pulse Resp B/P (MAP) Pulse Ox O2 Delivery O2 Flow Rate FiO2 06/01/20 11:53 16 Room Air 06/01/20 11:06 97.4 81 110/66 (81) 95 97.4 Medications: Inpatient Meds: Current Medications Medications (Trade) Dose Ordered Sig/Eun Start Time Stop Time Status Last Admin Dose Admin Dextrose (Dextrose 50%-Water Syringe) 12.5 gm PRN Q15MIN PRN 06/01/20 12:15 Hydromorphone HCl (Dilaudid) 0.5 mg PRN Q2HRS PRN 05/31/20 23:00 06/01/20 05:45 0.5 MG Insulin Human Lispro (HumaLOG) 0-5 UNITS TIDWMEALS 06/01/20 17:00 Insulin Human Regular (HumuLIN R VIAL) 6 unit 1X ONCE 05/31/20 21:45 05/31/20 21:46 DC 05/31/20 21:45 6 UNIT Morphine Sulfate (Morphine Sulfate) 2 mg PRN Q2HR PRN 05/31/20 18:45 05/31/20 19:34 DC Non-Formulary Medication (Dulaglutide (Trulicity)) 0.75 mg WEEKLY 06/07/20 09:00 UNV Ondansetron HCl (Zofran) 4 mg PRN Q8HRS PRN 05/31/20 18:45 06/01/20 18:44 Pantoprazole Sodium (Protonix) 40 mg DAILYAC 06/01/20 07:30 Piperacillin Sod/ Tazobactam Sod 3.375 gm/Sodium Chloride 50 ml @ 100 mls/hr Q6HRS 05/31/20 22:00 06/01/20 11:53 100 MLS/HR Pregabalin (Lyrica) 225 mg HS 05/31/20 21:00 05/31/20 22:54 225 MG Sodium Chloride 1,000 ml @ 100 mls/hr Q10H 05/31/20 23:00 06/01/20 07:56 100 MLS/HR Tramadol HCl (Ultram) 50 mg PRN Q6HRS PRN 06/01/20 10:30 06/01/20 10:48 50 MG Vancomycin HCl 250 ml @ 250 mls/hr 1X ONCE 05/31/20 19:00 05/31/20 19:59 DC 05/31/20 18:44 250 MLS/HR Labs: Lab Laboratory Tests Test 05/31/20 18:00 05/31/20 21:43 06/01/20 11:56 White Blood Count 5.2 x10^3/uL (4.0-11.0) Red Blood Count 5.00 x10^6/uL (3.50-5.40) Hemoglobin 14.9 g/dL (12.0-15.5) Hematocrit 44.0 % (36.0-47.0) Mean Corpuscular Volume 88 fL (79-100) Mean Corpuscular Hemoglobin 30 pg (25-35) Mean Corpuscular Hemoglobin Concent 34 g/dL (31-37) Red Cell Distribution Width 13.2 % (11.5-14.5) Platelet Count 242 x10^3/uL (140-400) Neutrophils (%) (Auto) 44 % (31-73) Lymphocytes (%) (Auto) 46 % (24-48) Monocytes (%) (Auto) 8 % (0-9) Eosinophils (%) (Auto) 2 % (0-3) Basophils (%) (Auto) 1 % (0-3) Neutrophils # (Auto) 2.3 x10^3/uL (1.8-7.7) Lymphocytes # (Auto) 2.4 x10^3/uL (1.0-4.8) Monocytes # (Auto) 0.4 x10^3/uL (0.0-1.1) Eosinophils # (Auto) 0.1 x10^3/uL (0.0-0.7) Basophils # (Auto) 0.0 x10^3/uL (0.0-0.2) Prothrombin Time 12.0 SEC (11.7-14.0) Prothromb Time International Ratio 0.9 (0.8-1.1) Activated Partial Thromboplast Time 32 SEC (24-38) Sodium Level 132 mmol/L (136-145) Potassium Level 3.9 mmol/L (3.5-5.1) Chloride Level 94 mmol/L (98-107) Carbon Dioxide Level 25 mmol/L (21-32) Anion Gap 13 (6-14) Blood Urea Nitrogen 17 mg/dL (7-20) Creatinine 0.6 mg/dL (0.6-1.0) Estimated GFR (Cockcroft-Gault) 108.6 BUN/Creatinine Ratio 28 (6-20) Glucose Level 402 mg/dL (70-99) Calcium Level 9.0 mg/dL (8.5-10.1) Total Bilirubin 0.2 mg/dL (0.2-1.0) Aspartate Amino Transf (AST/SGOT) 26 U/L (15-37) Alanine Aminotransferase (ALT/SGPT) 27 U/L (14-59) Alkaline Phosphatase 69 U/L (46-116) Total Protein 7.1 g/dL (6.4-8.2) Albumin 3.3 g/dL (3.4-5.0) Albumin/Globulin Ratio 0.9 (1.0-1.7) Glucose (Fingerstick) 327 mg/dL (70-99) 306 mg/dL (70-99) Plan: Plan of Care Patient seen and examined ID consult dictated Thank you SARI ARAUJO MD Jun 01, 2020 12:21
[2020-06-01] MEDS: INSULIN LISPRO 300 UNITS/3 ML VIAL. SQ SCH (12:45)
[2020-06-01] MEDS ORDERED: LIDOCAINE 2% PF 5 ML VIAL. ONE (12:51)
[2020-06-01] MEDS ORDERED: PROPOFOL 10 MG/ML (20ML) VIAL. IV ONE (12:51)
[2020-06-01] MEDS ORDERED: fentaNYL PF VIAL 100 MCG/2 ML VIAL ONE (12:51)
[2020-06-01] MEDS ORDERED: IV RINGERS,LACTATED 1000ML 1,000 ML IV SCH (12:56)
[2020-06-01] MEDS ORDERED: HYDROmorphone 2 MG/ML VIAL IV PRN (13:00)
[2020-06-01] MEDS ORDERED: PROCHLORPERAZINE 10 MG/2 ML VIAL. IV PRN (13:00)
[2020-06-01] MEDS ORDERED: LIDOCAINE 1% PF 2 ML VIAL. ID PRN (13:00)
[2020-06-01] MEDS ORDERED: fentaNYL PF VIAL 100 MCG/2 ML VIAL IV PRN ×2 (13:00)
[2020-06-01] MEDS ORDERED: ONDANSETRON PF 4 MG/2 ML VIAL. IV PRN (13:00)
--- NOTE | 2020-06-01 13:14 | CONS ---
DATE OF CONSULTATION: 06/01/2020 REFERRING PHYSICIAN: Phil Hagen MD. REASON FOR CONSULTATION: Left toe osteomyelitis, antibiotic management. HISTORY OF PRESENT ILLNESS: A 45-year-old female with a history of diabetes, neuropathy, history of left great toe osteomyelitis, status post amputation through proximal phalanx, with primary closure on 06/19/2019, presented with left great toe wound, which she noticed a couple of weeks ago. She was seen by her primary care physician and was treated with antibiotics a couple of weeks ago. She later on had right lower extremity swelling and redness, for which she was seen in the ER. At that time, she was given ____ for the right lower extremity redness. She was found to have a blue glass inside the left great toe plantar wound, which was taken out by the ER physician. Outside imaging showed osteo, so the patient is admitted as a direct admit for amputation. She denies any fevers, chills, vomiting. She denies any abdominal pain, headache, shortness of breath, cough, dysuria, rash, other joint pain. PAST MEDICAL HISTORY: Type 2 diabetes, peripheral neuropathy, chronic back pain, disk disease, sciatica, obesity, fibromyalgia, generalized osteoarthritis, status post amputation tip of the left great toe in 06/2019. PAST SURGICAL HISTORY: Hysterectomy, left proximal phalanx amputation in 06/2019. SOCIAL HISTORY: Employed at [employer], smokes cigarettes, has cats at home. FAMILY HISTORY: As per HPI. ALLERGIES: No known drug allergies. CURRENT MEDICATIONS: One-time dose of vancomycin and Zosyn. Other medications reviewed in medication list. REVIEW OF SYSTEMS: Negative except for HPI. PHYSICAL EXAMINATION: VITAL SIGNS: Temperature 97.4, pulse 81, respiratory rate 16, blood pressure 110/66, oxygen saturation 95% on room air. GENERAL: Alert and oriented x 3. The patient is propped up in bed, in no acute distress. HEENT: Normocephalic, atraumatic, anicteric. No thrush. Poor dentition. NECK: Supple. LUNGS: Clear. HEART: S1, S2. ABDOMEN: Soft, obese. Bowel sounds present. EXTREMITIES: No gross edema, cyanosis or clubbing. Left great toe swollen, mild erythema, partial amputation. There is mild ulceration at the base. No charles purulence noted. NEUROLOGIC: Alert and oriented x 3, grossly nonfocal. PSYCHIATRIC: Cooperative, appropriate mood and affect. DERMATOLOGIC: Warm, dry. No generalized rash. LABORATORY DATA: WBC 5.2, hemoglobin 14.9, hematocrit 44, platelets 242. Sodium 132, potassium 3.9, chloride 94, bicarbonate 25, BUN 13, creatinine 0.6, glucose 402, albumin 3.3. IMAGING: Foot x-ray shows no acute findings. Chest x-ray shows no active disease. IMPRESSION: 1. Left plantar great toe ulcer, chronic, with worsening recently and foreign body taken out by ER physician a couple of weeks ago. 2. Diabetic foot infection. 3. History of first toe osteomyelitis, status post partial left first toe amputation with primary closure in 06/2019. 4. Peripheral arterial disease. 5. Diabetes. 6. Diabetic neuropathy. 7. Tobacco abuse disorder. RECOMMENDATIONS: 1. Continue Zosyn, status post one dose of vancomycin. 2. Awaiting vascular evaluation. 3. Follow up cultures. 4. Continue local wound care. 5. Optimal diabetes control as you are doing. 6. Follow up labs and cultures. 7. Continue supportive care. Thank you for allowing me to participate in this patient's care. If you have any questions, do not hesitate to contact me. SARI ARAUJO MD DR: MALAIKA/irving JOB#: [id number] / [id number]
--- NOTE | 2020-06-01 13:14 | PDOC ---
Provider Note Provider Note Vascular consult dictated, patient seen by Dr. Stuart 45 year old female with PVD and DM presents with left first toe plantar ulcer. Recommend amputation, plan for today. If amputation fails to heal the patient may need angiography. Will make additional recommendations following surgery. Justicifation of Admission Dx: Justifications for Admission: Justification of Admission Dx: Yes Cellulitis: Cellulitis MARNI GREER COTA Jun 01, 2020 13:14
--- NOTE | 2020-06-01 13:21 | CONS ---
DATE OF CONSULTATION: 06/01/2020 VASCULAR CONSULT CLINICAL HISTORY: This is a 45-year-old diabetic female who smokes, who presents with a neuropathic ulcer on the plantar aspect of the left great toe just distal to the metatarsal joint. She has had prior left partial toe amputation in June of last year, which healed without incidents. She has had arterial duplex imaging, which suggests peripheral vascular disease. There were no elevated velocities; however, there is monophasic flow below the popliteal artery. She denies any fevers or chills. PAST MEDICAL HISTORY: Significant for type 2 diabetes, which she has been treated for 9 years and fibromyalgia. PAST SURGICAL HISTORY: Includes hysterectomy and partial amputation of the left great toe. SOCIAL HISTORY: The patient is a smoker. FAMILY HISTORY: Significant for diabetes. REVIEW OF SYSTEMS: The 12-point review of systems is essentially negative. Specifically, she denies history of claudication, rest pain, stroke, amaurosis, or chest pain. Otherwise, 12-point review of systems is negative. PHYSICAL EXAMINATION: GENERAL: The patient is alert and awake, answers questions appropriately. EXTREMITIES: She has palpable femoral, but absent popliteal and pedal pulses. There is a neuropathic ulcer on the plantar aspect of the left great toe, which extends to the phalanx. There is no evidence of abscess. There is monophasic flow by handheld continuous wave Doppler over the dorsal pedal artery and the dorsum of the great toe. The flow is similar to flow on the right foot, which there are no issues. LABORATORY DATA: White blood cell count is 5000 and hemoglobin 14.9. Creatinine 0.6. IMPRESSION: 1. Neuropathic ulcer, left great toe due to longstanding diabetes. 2. History of tobaccoism. 3. Moderate peripheral vascular disease. PLAN: I recommend partial amputation of the remaining left great toe with flap coverage. The operation, risks, and benefits were explained including the possibility that if this does not heal satisfactorily that she will need angiographic evaluation and revascularization. She understands and wishes to proceed. ARNALDO PERLA MD DR: ISIDRO/irving JOB#: [id number] / [id number]
[2020-06-01] MEDS ORDERED: ONDANSETRON PF 4 MG/2 ML VIAL. ONE (13:27)
[2020-06-01] MEDS ORDERED: PHENYLEPHRINE in 0.9% NACL PF 1 MG/10 ML SYRINGE. IV ONE (13:51)
--- NOTE | 2020-06-01 14:19 | PDOC ---
BRIEF OPERATIVE NOTE Date: Jun 01, 2020 Pre-Op Diagnosis Left first toe ulcer Post-Op Diagnosis same Procedure Performed Left first toe closed amputation Surgeon Dr. Stuart Liquid Center Assembler Marni Greer NP Anesthesia Type: General Blood Loss minimal Specimens Obtained left first toe cultures Findings adequate intraoperative bleeding Complications none Operative Note see dictated note for additional information MARNI GREER ZIPPER JOINER Jun 01, 2020 14:18
--- NOTE | 2020-06-01 14:32 | OP ---
DATE OF SURGERY: 06/01/2020 PREOPERATIVE DIAGNOSIS: Neuropathic ulcer, left great toe with osteomyelitis. POSTOPERATIVE DIAGNOSIS: Neuropathic ulcer, left great toe with osteomyelitis. OPERATION PERFORMED: Left great toe amputation. SURGEON: Arnaldo Stuart MD SILICA DRY PRESS HELPER: Lizzy Solis, medical student. ANESTHESIA: General. INDICATIONS: This is a 45-year-old diabetic, smoker, who has developed a neuropathic ulcer on the plantar aspect of the left great toe. She has had previous partial toe amputation, which healed nicely in 06/2019. She has monophasic arterial Doppler flow over both the posterior tibial and dorsal pedal arteries, which extends out to the base of the phalanx. The operation, risks, and benefits were explained to the patient. She understood and wished to proceed. OPERATIVE FINDINGS: The patient had excellent bleeding from the wound edges and no gross residual evidence of infection. The bone margin was sent for culture and primary closure was obtained. DESCRIPTION OF PROCEDURE: The patient was placed in the supine position. Foot prepped and draped with Betadine. A timeout was called and the correct patient, correct operative site and correct operation were all verified. The patient received IV antibiotics preoperatively. A circumferential incision was then made around the base of the great toe and the proximal phalanx was resected. There was a small remnant of the proximal phalanx left behind and a fragment of this was sent for margin culture. The wound was then irrigated. All sharp fragments were rongeured and following copious irrigation, the primary closure was accomplished with interrupted 4-0 nylon sutures. A sterile dressing was applied. The patient was taken to the recovery room in satisfactory condition. All sponge and needle counts were reported as correct. ARNALDO STUART MD DR: ISIDRO/irving JOB#: [id number] / [id number]
[2020-06-01] MEDS: INSULIN LISPRO 100 UNIT/ML 3ML VIAL for OP,RR ONLY. SQ PRN ×2 (14:40→15:45)
[2020-06-01] MEDS ORDERED: MORPHINE SULFATE 2 MG/ML VIAL. ONE (15:13)
[2020-06-01] MEDS: MORPHINE SULFATE 2 MG/ML VIAL. IV PRN ×2 (15:16→15:26)
[2020-06-01] MEDS ORDERED: MAGNESIUM CITRATE 296 ML SOLUTION. PO ONE (17:45)
[2020-06-02] MEDS: PIPERACILLIN/TAZOBACTAM 3.375 GM in IV NORMAL SALINE 50ML 50 ML IV SCH ×3 (00:21→12:11)
[2020-06-02] MEDS: INSULIN LISPRO 300 UNITS/3 ML VIAL. SQ SCH ×3 (00:27→16:54)
[2020-06-02] MEDS: HYDROmorphone 2 MG/ML VIAL IV PRN ×3 (00:29→06:33)
[2020-06-02 01:09] LABS: HEMOGLOBIN A1C 12.1 % (4.8-5.6)
[2020-06-02 03:00] VITALS: BP 111/68
[2020-06-02] MEDS: traMADol 50 MG TABLET PO PRN ×3 (03:14→18:00)
[2020-06-02] MEDS: IV NORMAL SALINE 1000ML BAG 1,000 ML IV SCH (05:00)
[2020-06-02] MEDS: PANTOPRAZOLE 40 MG TABLET.DR. PO SCH (06:32)
[2020-06-02 07:00] VITALS: BP 90/36
--- NOTE | 2020-06-02 07:59 | NUR ---
kickboxing instructor RN administered 0800 insulin at . one time order for insulin entered for breakfast glucose 243, 3 units given per scale
[2020-06-02] MEDS ORDERED: INSULIN LISPRO 300 UNITS/3 ML VIAL. SQ SCH (08:00)
[2020-06-02] MEDS ORDERED: INSULIN LISPRO 300 UNITS/3 ML VIAL. SQ ONE ×3 (08:00→22:00)
--- NOTE | 2020-06-02 09:43 | PDOC ---
Infectious Disease Note Subjective: Subjective Patient went surgery last p.m. Today has some postop site pain Occasional loose bowel movements as she was on laxatives last evening Denies fever, nausea, vomiting, shortness of breath, abdominal pain, rash Otherwise as above Vital Signs: Vital Signs Vital Signs Date Time Temp Pulse Resp B/P (MAP) Pulse Ox O2 Delivery O2 Flow Rate FiO2 06/02/20 07:00 97.8 74 18 90/36 (54) 95 Room Air 97.8 06/01/20 15:49 10.0 Physical Exam: PHYSICAL EXAM GENERAL: Alert and oriented x 3. The patient is propped up in bed, in no acute distress. HEENT: Normocephalic, atraumatic, anicteric. No thrush. Poor dentition. NECK: Supple. LUNGS: Clear. HEART: S1, S2. ABDOMEN: Soft, obese. Bowel sounds present. EXTREMITIES: No gross edema, cyanosis or clubbing. Left foot dressing in place intact did not take it down, dry NEUROLOGIC: Alert and oriented x 3, grossly nonfocal. PSYCHIATRIC: Cooperative, appropriate mood and affect. DERMATOLOGIC: Warm, dry. No generalized rash. Medications: Inpatient Meds: Current Medications Medications (Trade) Dose Ordered Sig/Eun Start Time Stop Time Status Last Admin Dose Admin Cefazolin Sodium 1 gm/Sodium Chloride 500 ml @ 500 mls/hr 1X ONCE 06/01/20 13:30 06/01/20 14:29 DC 06/01/20 13:43 Dextrose (Dextrose 50%-Water Syringe) 12.5 gm PRN Q15MIN PRN 06/01/20 12:15 Fentanyl Citrate (Fentanyl 2ml Vial) 50 mcg PRN Q5MIN PRN 06/01/20 13:00 06/01/20 22:00 DC 06/01/20 13:08 50 MCG Hydromorphone HCl (Dilaudid) 0.5 mg PRN Q10MIN PRN 06/01/20 13:00 06/01/20 22:00 DC Insulin Human Lispro (HumaLOG VIAL for OP,RR ONLY) 0-10 units PRN Q1HR PRN 06/01/20 12:15 06/02/20 12:14 06/01/20 15:45 6 UNIT Insulin Human Lispro (HumaLOG) 3 units 1X 06/02/20 08:00 Insulin Human Regular (HumuLIN R VIAL) 6 unit 1X ONCE 05/31/20 21:45 05/31/20 21:46 DC 05/31/20 21:45 6 UNIT Lidocaine HCl (Lidocaine Pf 2% Vial) 5 ml STK-MED ONCE 06/01/20 12:51 06/01/20 12:51 DC Lidocaine HCl (Xylocaine-Mpf 1% 2ml Vial) 2 ml PRN 1X PRN 06/01/20 13:00 06/01/20 22:00 DC Magnesium Citrate (Citroma) 296 ml 1X ONCE 06/01/20 17:45 06/01/20 17:46 DC 06/01/20 17:45 296 ML Morphine Sulfate (Morphine Sulfate) 2 mg STK-MED ONCE 06/01/20 15:13 06/01/20 15:13 DC Non-Formulary Medication (Dulaglutide (Trulicity)) 0.75 mg WEEKLY 06/07/20 09:00 UNV Ondansetron HCl (Zofran) 4 mg STK-MED ONCE 06/01/20 13:27 06/01/20 13:27 DC Pantoprazole Sodium (Protonix) 40 mg DAILYAC 06/01/20 07:30 06/02/20 06:32 40 MG Phenylephrine HCl (PHENYLEPHRINE in 0.9% NACL PF) 1 mg STK-MED ONCE 06/01/20 13:51 06/01/20 13:52 DC Piperacillin Sod/ Tazobactam Sod 3.375 gm/Sodium Chloride 50 ml @ 100 mls/hr Q6HRS 05/31/20 22:00 06/02/20 06:33 100 MLS/HR Pregabalin (Lyrica) 225 mg HS 05/31/20 21:00 06/01/20 22:12 225 MG Prochlorperazine Edisylate (Compazine) 5 mg PACU PRN PRN 06/01/20 13:00 06/01/20 22:00 DC Propofol (Diprivan) 200 mg STK-MED ONCE 06/01/20 12:51 06/01/20 12:51 DC Ringer's Solution 1,000 ml @ 30 mls/hr Q24H 06/01/20 12:56 06/02/20 00:55 DC Sodium Chloride 1,000 ml @ 100 mls/hr Q10H 05/31/20 23:00 06/01/20 07:56 100 MLS/HR Tramadol HCl (Ultram) 50 mg PRN Q6HRS PRN 06/01/20 10:30 06/02/20 03:14 50 MG Vancomycin HCl 250 ml @ 250 mls/hr 1X ONCE 05/31/20 19:00 05/31/20 19:59 DC 05/31/20 18:44 250 MLS/HR Labs: Lab Laboratory Tests Test 06/01/20 11:56 06/01/20 14:38 06/01/20 15:42 06/02/20 00:16 Glucose (Fingerstick) 306 mg/dL (70-99) 245 mg/dL (70-99) 224 mg/dL (70-99) 267 mg/dL (70-99) Test 06/02/20 07:50 Glucose (Fingerstick) 243 mg/dL (70-99) Objective: Assessment: Neuropathic ulcer, left great toe with osteomyelitis. June 01, 2000 s/p Left first toe closed amputation Diabetes mellitus with neuropathy Tobacco use disorder Peripheral arterial disease Plan: Plan of Care 1. Continue Zosyn for now, status post one dose of vancomycin. 2. Follow-up wound care as directed 3. Continue supportive care SARI ARAUJO MD Jun 02, 2020 09:43
--- NOTE | 2020-06-02 10:41 | NUR ---
SW following. Discussed with RN, pt had surgery 06/01. Has offloading shoe. RN advised no SW needs at this time. SW will continue to follow.
[2020-06-02 11:00] VITALS: BP 111/68
[2020-06-02] MEDS: MULTIVITAMIN with MINERAL TABLET. PO SCH (11:23)
--- NOTE | 2020-06-02 14:18 | PDOC ---
PROGRESS NOTES Chief Complaint Chief Complaint Diabetic foot infection, acute, secondary to neuropathic ulcer in left great toe osteomyelitis. Status post left great toe amputation on 06/01/2020 hx Left first toe osteomyelitis, status post left first toe amputation through the proximal phalanx with primary closure. 2019 prior amputation of the distal phalanx of the great t 06/2019 Findings compatible with significant greater than 50% stenosis at the right distal superficial femoral artery.Extensive bilateral peripheral artery disease. by arterial doppler Diabetes Tobacco abuse disorder morbid obesity hx diabetic neuropathy Plan: follow VASCULAR SURGERY recommendations follow BLOOD CULTUE X 1\ DVT PROPHYLAXIS Empiric iv antibiotics., vanc, zosyn pending id consult wound care to see ID CONSULT [id number] covid-19 screening negative History of Present Illness History of Present Illness No acute events reported overnight, case discussed with nursing staff patient in no acute distress no complaints during my visit Vitals Vitals Vital Signs Date Time Temp Pulse Resp B/P (MAP) Pulse Ox O2 Delivery O2 Flow Rate FiO2 06/02/20 11:00 97.9 69 16 111/68 (82) 95 Room Air 97.9 06/01/20 15:49 10.0 Physical Exam Physical Exam GENERAL: Alert and oriented x 3. The patient is propped up in bed, in no acute distress. HEENT: Normocephalic, atraumatic, anicteric. No thrush. Poor dentition. NECK: Supple. LUNGS: Clear. HEART: S1, S2. ABDOMEN: Soft, obese. Bowel sounds present. EXTREMITIES: No gross edema, cyanosis or clubbing. Left foot dressing in place intact did not take it down, dry NEUROLOGIC: Alert and oriented x 3, grossly nonfocal. PSYCHIATRIC: Cooperative, appropriate mood and affect. DERMATOLOGIC: Warm, dry. No generalized rash. General: Alert, Oriented X3, Cooperative, No acute distress Abdomen: Soft Extremities: No cyanosis Labs LABS Laboratory Tests Test 06/01/20 14:38 06/01/20 15:42 06/02/20 00:16 06/02/20 07:50 Glucose (Fingerstick) 245 mg/dL (70-99) 224 mg/dL (70-99) 267 mg/dL (70-99) 243 mg/dL (70-99) Test 06/02/20 11:10 Glucose (Fingerstick) 281 mg/dL (70-99) Review of Systems Review of Systems Pertinent as per HPI otherwise 14 point review of system is negative Comment Review of Relevant I have reviewed the following items filemon (where applicable) has been applied. Labs Laboratory Tests Test 05/31/20 18:00 05/31/20 21:43 06/01/20 11:56 06/01/20 14:38 White Blood Count 5.2 x10^3/uL (4.0-11.0) Red Blood Count 5.00 x10^6/uL (3.50-5.40) Hemoglobin 14.9 g/dL (12.0-15.5) Hematocrit 44.0 % (36.0-47.0) Mean Corpuscular Volume 88 fL (79-100) Mean Corpuscular Hemoglobin 30 pg (25-35) Mean Corpuscular Hemoglobin Concent 34 g/dL (31-37) Red Cell Distribution Width 13.2 % (11.5-14.5) Platelet Count 242 x10^3/uL (140-400) Neutrophils (%) (Auto) 44 % (31-73) Lymphocytes (%) (Auto) 46 % (24-48) Monocytes (%) (Auto) 8 % (0-9) Eosinophils (%) (Auto) 2 % (0-3) Basophils (%) (Auto) 1 % (0-3) Neutrophils # (Auto) 2.3 x10^3/uL (1.8-7.7) Lymphocytes # (Auto) 2.4 x10^3/uL (1.0-4.8) Monocytes # (Auto) 0.4 x10^3/uL (0.0-1.1) Eosinophils # (Auto) 0.1 x10^3/uL (0.0-0.7) Basophils # (Auto) 0.0 x10^3/uL (0.0-0.2) Prothrombin Time 12.0 SEC (11.7-14.0) Prothromb Time International Ratio 0.9 (0.8-1.1) Activated Partial Thromboplast Time 32 SEC (24-38) Sodium Level 132 mmol/L (136-145) Potassium Level 3.9 mmol/L (3.5-5.1) Chloride Level 94 mmol/L (98-107) Carbon Dioxide Level 25 mmol/L (21-32) Anion Gap 13 (6-14) Blood Urea Nitrogen 17 mg/dL (7-20) Creatinine 0.6 mg/dL (0.6-1.0) Estimated GFR (Cockcroft-Gault) 108.6 BUN/Creatinine Ratio 28 (6-20) Glucose Level 402 mg/dL (70-99) Hemoglobin A1c 12.1 % (4.8-5.6) Calcium Level 9.0 mg/dL (8.5-10.1) Total Bilirubin 0.2 mg/dL (0.2-1.0) Aspartate Amino Transf (AST/SGOT) 26 U/L (15-37) Alanine Aminotransferase (ALT/SGPT) 27 U/L (14-59) Alkaline Phosphatase 69 U/L (46-116) Total Protein 7.1 g/dL (6.4-8.2) Albumin 3.3 g/dL (3.4-5.0) Albumin/Globulin Ratio 0.9 (1.0-1.7) Glucose (Fingerstick) 327 mg/dL (70-99) 306 mg/dL (70-99) 245 mg/dL (70-99) Test 06/01/20 15:42 06/02/20 00:16 06/02/20 07:50 06/02/20 11:10 Glucose (Fingerstick) 224 mg/dL (70-99) 267 mg/dL (70-99) 243 mg/dL (70-99) 281 mg/dL (70-99) Laboratory Tests Test 06/01/20 14:38 06/01/20 15:42 06/02/20 00:16 06/02/20 07:50 Glucose (Fingerstick) 245 mg/dL (70-99) 224 mg/dL (70-99) 267 mg/dL (70-99) 243 mg/dL (70-99) Test 06/02/20 11:10 Glucose (Fingerstick) 281 mg/dL (70-99) Microbiology 06/01/20 Gram Stain - Final, Resulted 06/01/20 Aerobic and Anaerobic Culture - Preliminary, Resulted Medications Current Medications Morphine Sulfate (Morphine Sulfate) 4 mg 1X ONCE IV Last administered on 05/31/20at 18:44; Start 05/31/20 at 18:45; Stop 05/31/20 at 18:46; Status DC Vancomycin HCl 250 ml @ 250 mls/hr 1X ONCE IV Last administered on 05/31/20at 18:44; Start 05/31/20 at 19:00; Stop 05/31/20 at 19:59; Status DC Ondansetron HCl (Zofran) 4 mg PRN Q8HRS PRN IV NAUSEA/VOMITING; Start 05/31/20 at 18:45; Stop 06/01/20 at 18:44; Status DC Morphine Sulfate (Morphine Sulfate) 2 mg PRN Q2HR PRN IV PAIN; Start 05/31/20 at 18:45; Stop 05/31/20 at 19:34; Status DC Hydromorphone HCl (Dilaudid) 1 mg PRN Q3HRS PRN IV PAIN Last administered on 05/31/20at 19:41; Start 05/31/20 at 19:45; Stop 05/31/20 at 19:45; Status DC Insulin Human Regular (HumuLIN R VIAL) 6 unit 1X SQ ; Start 05/31/20 at 20:15; Status Cancel Pregabalin (Lyrica) 75 mg DAILY07 PO Last administered on 06/01/20at 06:37; Start 06/01/20 at 07:00 Pregabalin (Lyrica) 225 mg HS PO Last administered on 06/01/20at 22:12; Start 05/31/20 at 21:00 Non-Formulary Medication (Dulaglutide (Trulicity)) 0.75 mg WEEKLY SQ ; Start 06/07/20 at 09:00; Status UNV Pantoprazole Sodium (Protonix) 40 mg DAILYAC PO Last administered on 06/02/20at 06:32; Start 06/01/20 at 07:30 Piperacillin Sod/ Tazobactam Sod 3.375 gm/Sodium Chloride 50 ml @ 100 mls/hr Q6HRS IV Last administered on 06/02/20at 12:11; Start 05/31/20 at 22:00 Insulin Human Regular (HumuLIN R VIAL) 6 unit 1X ONCE SQ Last administered on 05/31/20at 21:45; Start 05/31/20 at 21:45; Stop 05/31/20 at 21:46; Status DC Hydromorphone HCl (Dilaudid) 0.5 mg PRN Q2HRS PRN IV SEVERE PAIN 7-10 Last administered on 06/02/20at 06:33; Start 05/31/20 at 23:00 Sodium Chloride 1,000 ml @ 100 mls/hr Q10H IV Last administered on 06/01/20at 07:56; Start 05/31/20 at 23:00 Tramadol HCl (Ultram) 50 mg PRN Q6HRS PRN PO MILD TO MODERATE PAIN Last administered on 06/02/20at 11:23; Start 06/01/20 at 10:30 Insulin Human Lispro (HumaLOG) 0-5 UNITS TIDWMEALS SQ Last administered on 06/02/20at 12:15; Start 06/01/20 at 17:00 Dextrose (Dextrose 50%-Water Syringe) 12.5 gm PRN Q15MIN PRN IV SEE COMMENTS; Start 06/01/20 at 12:15 Insulin Human Lispro (HumaLOG VIAL for OP,RR ONLY) 0-10 units PRN Q1HR PRN SQ PER PROTOCOL Last administered on 06/01/20at 15:45; Start 06/01/20 at 12:15; Stop 06/02/20 at 12:14; Status DC Fentanyl Citrate (Fentanyl 2ml Vial) 100 mcg STK-MED ONCE .ROUTE ; Start 06/01/20 at 12:51; Stop 06/01/20 at 12:51; Status DC Propofol (Diprivan) 200 mg STK-MED ONCE IV ; Start 06/01/20 at 12:51; Stop 06/01/20 at 12:51; Status DC Lidocaine HCl (Lidocaine Pf 2% Vial) 5 ml STK-MED ONCE .ROUTE ; Start 06/01/20 at 12:51; Stop 06/01/20 at 12:51; Status DC Ondansetron HCl (Zofran) 4 mg PRN Q6HRS PRN IV NAUSEA/VOMITING; Start 06/01/20 at 13:00; Stop 06/01/20 at 22:00; Status DC Fentanyl Citrate (Fentanyl 2ml Vial) 25 mcg PRN Q5MIN PRN IV MILD PAIN 1-3; Start 06/01/20 at 13:00; Stop 06/01/20 at 22:00; Status DC Fentanyl Citrate (Fentanyl 2ml Vial) 50 mcg PRN Q5MIN PRN IV MODERATE TO SEVERE PAIN Last administered on 06/01/20at 13:08; Start 06/01/20 at 13:00; Stop 06/01/20 at 22:00; Status DC Morphine Sulfate (Morphine Sulfate) 1 mg PRN Q10MIN PRN IV SEVERE PAIN 7-10 L ast administered on 06/01/20at 15:26; Start 06/01/20 at 13:00; Stop 06/01/20 at 22:00; Status DC Ringer's Solution 1,000 ml @ 30 mls/hr Q24H IV ; Start 06/01/20 at 12:56; Stop 06/02/20 at 00:55; Status DC Lidocaine HCl (Xylocaine-Mpf 1% 2ml Vial) 2 ml PRN 1X PRN ID PRIOR TO IV START; Start 06/01/20 at 13:00; Stop 06/01/20 at 22:00; Status DC Hydromorphone HCl (Dilaudid) 0.5 mg PRN Q10MIN PRN IV SEV PAIN, Second choice; Start 06/01/20 at 13:00; Stop 06/01/20 at 22:00; Status DC Prochlorperazine Edisylate (Compazine) 5 mg PACU PRN PRN IV NAUSEA, MRX1; Start 06/01/20 at 13:00; Stop 06/01/20 at 22:00; Status DC Cefazolin Sodium 1 gm/Sodium Chloride 500 ml @ 500 mls/hr 1X ONCE IRR Last administered on 06/01/20at 13:43; Start 06/01/20 at 13:30; Stop 06/01/20 at 14:29; Status DC Ondansetron HCl (Zofran) 4 mg STK-MED ONCE .ROUTE ; Start 06/01/20 at 13:27; Stop 06/01/20 at 13:27; Status DC Phenylephrine HCl (PHENYLEPHRINE in 0.9% NACL PF) 1 mg STK-MED ONCE IV ; Start 06/01/20 at 13:51; Stop 06/01/20 at 13:52; Status DC Morphine Sulfate (Morphine Sulfate) 2 mg STK-MED ONCE .ROUTE ; Start 06/01/20 at 15:13; Stop 06/01/20 at 15:13; Status DC Magnesium Citrate (Citroma) 296 ml 1X ONCE PO Last administered on 06/01/20at 17:45; Start 06/01/20 at 17:45; Stop 06/01/20 at 17:46; Status DC Insulin Human Lispro (HumaLOG) 3 units 1X SQ ; Start 06/02/20 at 08:00; Status Cancel Insulin Human Lispro (HumaLOG) 3 units 1X ONCE SQ ; Start 06/02/20 at 10:45; Stop 06/02/20 at 10:46; Status Cancel Insulin Human Lispro (HumaLOG) 3 units 1X ONCE SQ Last administered on 06/02/20at 08:00; Start 06/02/20 at 08:00; Stop 06/02/20 at 10:36; Status DC Insulin Human Regular (HumuLIN R VIAL) 6 unit STK-MED ONCE .ROUTE ; Start 05/31/20 at 21:45; Stop 06/02/20 at 10:39; Status DC Multivitamins (Thera M Plus) 1 tab DAILY PO Last administered on 06/02/20at 11:23; Start 06/02/20 at 11:30 Lactobacillus Rhamnosus (Culturelle) 1 cap BID PO ; Start 06/02/20 at 21:00 Active Scripts Active Humalog (Insulin Lispro) 100 Unit/1 Ml Cartridge 15 Unit SQ TID 30 Days Protonix (Pantoprazole Sodium) 20 Mg Tablet.dr 40 Mg PO DAILY 30 Days Lantus Solostar (Insulin Glargine,Hum.rec.anlog) 100 Unit/1 Ml Insuln.pen 40 Unit SQ QHS 30 Days Diflucan (Fluconazole) 100 Mg Tablet 100 Mg PO DAILY 5 Days Augmentin 875-125 Tablet (Amoxicillin/Potassium Clav) 1 Each Tablet 1 Tab PO BID 5 Days Reported Trulicity (Dulaglutide) 0.75 Mg/0.5 Ml Pen.injctr 0.75 Mg SQ WEEKLY Metformin Hcl 500 Mg Tablet 500 Mg PO TIDWMEALS Cyclobenzaprine Hcl 10 Mg Tablet 1 Tab PO QHS PRN Lyrica (Pregabalin) 75 Mg Capsule 1 Cap PO DAILY07 Lyrica (Pregabalin) 75 Mg Capsule 3 Cap PO HS Vitals/I & O Vital Sign - Last 24 Hours 06/01/20 06/01/20 06/01/20 06/01/20 14:17 14:32 14:44 14:47 Temp 98 98.0 98.0 98.0 Pulse 78 75 78 Resp 18 16 17 B/P (MAP) 113/70 97/64 103/63 Pulse Ox 98 98 98 O2 Delivery Simple Mask Simple Mask Mask Simple Mask O2 Flow Rate 10 10 10 10 06/01/20 06/01/20 06/01/20 06/01/20 14:47 15:02 15:16 15:17 Pulse 74 73 80 Resp 16 16 18 18 B/P (MAP) 111/72 111/65 108/72 Pulse Ox 98 98 98 98 O2 Delivery Nasal Cannula Simple Mask Simple Mask Room Air O2 Flow Rate 2 10 10.0 06/01/20 06/01/20 06/01/20 06/01/20 15:26 15:32 15:35 15:49 Pulse 80 Resp 17 16 B/P (MAP) 108/70 Pulse Ox 98 98 98 98 O2 Delivery Room Air Nasal Cannula Room Air Nasal Cannula O2 Flow Rate 10.0 10.0 10.0 06/01/20 06/01/20 06/01/20 06/01/20 16:05 16:20 16:20 16:35 Temp 98.0 98.0 Pulse 76 83 83 76 Resp 18 18 18 18 B/P (MAP) 113/74 (87) 102/49 (66) 102/49 (66) 103/60 (74) Pulse Ox 97 93 93 90 O2 Delivery Room Air Room Air Room Air Room Air 06/01/20 06/01/20 06/01/20 06/01/20 16:50 17:45 18:46 19:00 Pulse 76 90 Resp 18 16 18 B/P (MAP) 104/62 (76) 120/69 (86) Pulse Ox 91 95 O2 Delivery Room Air Room Air Room Air Room Air 06/01/20 06/01/20 06/01/20 06/01/20 19:00 19:20 19:50 20:00 Temp 98.1 98.1 Pulse 86 B/P (MAP) 112/69 (83) Pulse Ox 95 O2 Delivery Room Air Room Air Room Air Room Air 06/01/20 06/01/20 06/01/20 06/02/20 22:12 22:42 23:00 00:29 Temp 98.0 98.0 Pulse 75 B/P (MAP) 95/46 (62) Pulse Ox 96 O2 Delivery Room Air Room Air Room Air Room Air 06/02/20 06/02/20 06/02/2020 02:06 03:00 03:13 03:14 Temp 98.0 98.0 Pulse 75 B/P (MAP) 111/68 (82) Pulse Ox 97 O2 Delivery Room Air Room Air Room Air Room Air 06/02/20 06/02/20 06/02/20 06/02/20 03:43 04:15 06:33 07:00 Temp 97.8 97.8 Pulse 74 Resp 18 B/P (MAP) 90/36 (54) Pulse Ox 95 O2 Delivery Room Air Room Air Room Air Room Air 06/02/20 06/02/20 08:00 11:00 Temp 97.9 97.9 Pulse 69 Resp 16 B/P (MAP) 111/68 (82) Pulse Ox 95 O2 Delivery Room Air Room Air Intake and Output 06/01/20 06/01/20 06/02/20 15:00 23:00 07:00 Intake Total 800 ml 560 ml Output Total 2 ml Balance 798 ml 560 ml Justicifation of Admission Dx: Justifications for Admission: Justification of Admission Dx: Yes Cellulitis: Cellulitis TRICE BROOKS MD Jun 02, 2020 14:18
[2020-06-02 15:00] VITALS: BP 112/20
[2020-06-02] MEDS ORDERED: HYDROcodone/APAP 5/325MG 1 TAB TABLET PO PRN (16:30)
[2020-06-02] MEDS: oxyCODONE/APAP 7.5/325 1 TAB TABLET PO PRN (18:37)
[2020-06-02 19:00] VITALS: BP 120/67
[2020-06-02] MEDS: LACTOBACILLUS RHAMNOSUS GG 1 CAPSULE. PO SCH (20:30)
[2020-06-02] MEDS: AMOXICILLIN/K CLAV 875/125MG TABLET. PO SCH (20:30)
[2020-06-02] MEDS: PREGABALIN 75 MG CAPSULE PO SCH (20:31)
[2020-06-02] MEDS ORDERED: KETOROLAC 30 MG/ML VIAL. IVP PRN (21:00)
[2020-06-02] MEDS ORDERED: KETOROLAC 30 MG/ML VIAL. IM PRN (21:15)
[2020-06-02 23:00] VITALS: BP 135/77
[2020-06-03] MEDS: traMADol 50 MG TABLET PO PRN ×3 (00:21→14:13)
[2020-06-03] MEDS: oxyCODONE/APAP 7.5/325 1 TAB TABLET PO PRN ×3 (00:21→12:31)
[2020-06-03 03:00] VITALS: BP 124/72
[2020-06-03] MEDS: PREGABALIN 75 MG CAPSULE PO SCH (06:25)
[2020-06-03] MEDS: PANTOPRAZOLE 40 MG TABLET.DR. PO SCH (06:25)
[2020-06-03 07:30] VITALS: BP 116/71
[2020-06-03] MEDS: MULTIVITAMIN with MINERAL TABLET. PO SCH (07:48)
[2020-06-03] MEDS: AMOXICILLIN/K CLAV 875/125MG TABLET. PO SCH (07:48)
[2020-06-03] MEDS: LACTOBACILLUS RHAMNOSUS GG 1 CAPSULE. PO SCH (07:48)
[2020-06-03] MEDS: INSULIN LISPRO 300 UNITS/3 ML VIAL. SQ SCH ×2 (07:52→11:53)
--- NOTE | 2020-06-03 08:32 | PDOC ---
Infectious Disease Note Subjective: Subjective Patient without complaints Eager for discharge home today Denies fever, nausea, vomiting, shortness of breath, diarrhea, abdominal pain, rash Vital Signs: Vital Signs Vital Signs Date Time Temp Pulse Resp B/P (MAP) Pulse Ox O2 Delivery O2 Flow Rate FiO2 06/03/20 07:40 97 Room Air 10.0 06/03/20 07:30 98.0 75 18 116/71 (86) 98.0 Physical Exam: PHYSICAL EXAM GENERAL: Alert and oriented x 3. The patient is propped up in bed, in no acute distress. HEENT: Normocephalic, atraumatic, anicteric. No thrush. Poor dentition. NECK: Supple. LUNGS: Clear. HEART: S1, S2. ABDOMEN: Soft, obese. Bowel sounds present. EXTREMITIES: No gross edema, cyanosis or clubbing. Left foot dressing in place intact did not take it down, dry NEUROLOGIC: Alert and oriented x 3, grossly nonfocal. PSYCHIATRIC: Cooperative, appropriate mood and affect. DERMATOLOGIC: Warm, dry. No generalized rash. Medications: Inpatient Meds: Current Medications Medications (Trade) Dose Ordered Sig/Eun Start Time Stop Time Status Last Admin Dose Admin Acetaminophen/ Hydrocodone Bitart (Lortab 5/325) 1 tab PRN Q6HRS PRN 06/02/20 16:30 06/02/20 18:27 DC 06/02/20 16:51 1 TAB Amoxicillin/ Clavulanate Potassium (Augmentin 875/ 125mg) 1 tab BID 06/02/20 21:00 06/09/20 20:59 06/03/20 07:48 1 TAB Cefazolin Sodium 1 gm/Sodium Chloride 500 ml @ 500 mls/hr 1X ONCE 06/01/20 13:30 06/01/20 14:29 DC 06/01/20 13:43 Dextrose (Dextrose 50%-Water Syringe) 12.5 gm PRN Q15MIN PRN 06/01/20 12:15 Fentanyl Citrate (Fentanyl 2ml Vial) 50 mcg PRN Q5MIN PRN 06/01/20 13:00 06/01/20 22:00 DC 06/01/20 13:08 50 MCG Hydromorphone HCl (Dilaudid) 0.5 mg PRN Q10MIN PRN 06/01/20 13:00 06/01/20 22:00 DC Insulin Human Lispro (HumaLOG VIAL for OP,RR ONLY) 0-10 units PRN Q1HR PRN 06/01/20 12:15 06/02/20 12:14 DC 06/01/20 15:45 6 UNIT Insulin Human Lispro (HumaLOG) 2 units 1X ONCE 06/02/20 22:00 06/02/20 22:02 DC 06/02/20 22:07 2 UNITS Insulin Human Regular (HumuLIN R VIAL) 6 unit STK-MED ONCE 05/31/20 21:45 06/02/20 10:39 DC Ketorolac Tromethamine (Toradol 30mg Vial) 30 mg PRN Q6HRS PRN 06/02/20 21:15 06/07/20 21:14 06/02/20 21:44 30 MG Lactobacillus Rhamnosus (Culturelle) 1 cap BID 06/02/20 21:00 06/03/20 07:48 1 CAP Lidocaine HCl (Lidocaine Pf 2% Vial) 5 ml STK-MED ONCE 06/01/20 12:51 06/01/20 12:51 DC Lidocaine HCl (Xylocaine-Mpf 1% 2ml Vial) 2 ml PRN 1X PRN 06/01/20 13:00 06/01/20 22:00 DC Magnesium Citrate (Citroma) 296 ml 1X ONCE 06/01/20 17:45 06/01/20 17:46 DC 06/01/20 17:45 296 ML Morphine Sulfate (Morphine Sulfate) 2 mg STK-MED ONCE 06/01/20 15:13 06/01/20 15:13 DC Multivitamins (Thera M Plus) 1 tab DAILY 06/02/20 11:30 06/03/20 07:48 1 TAB Non-Formulary Medication (Dulaglutide (Trulicity)) 0.75 mg WEEKLY 06/07/20 09:00 UNV Ondansetron HCl (Zofran) 4 mg STK-MED ONCE 06/01/20 13:27 06/01/20 13:27 DC Oxycodone/ Acetaminophen (Percocet 7.5/ 325) 1 tab PRN Q6HRS PRN 06/02/20 18:30 06/03/20 06:25 1 TAB Pantoprazole Sodium (Protonix) 40 mg DAILYAC 06/01/20 07:30 06/03/20 06:25 40 MG Phenylephrine HCl (PHENYLEPHRINE in 0.9% NACL PF) 1 mg STK-MED ONCE 06/01/20 13:51 06/01/20 13:52 DC Piperacillin Sod/ Tazobactam Sod 3.375 gm/Sodium Chloride 50 ml @ 100 mls/hr Q6HRS 05/31/20 22:00 06/02/20 14:53 DC 06/02/20 12:11 100 MLS/HR Pregabalin (Lyrica) 225 mg HS 05/31/20 21:00 06/02/20 20:31 225 MG Prochlorperazine Edisylate (Compazine) 5 mg PACU PRN PRN 06/01/20 13:00 06/01/20 22:00 DC Propofol (Diprivan) 200 mg STK-MED ONCE 06/01/20 12:51 06/01/20 12:51 DC Ringer's Solution 1,000 ml @ 30 mls/hr Q24H 06/01/20 12:56 06/02/20 00:55 DC Sodium Chloride 1,000 ml @ 100 mls/hr Q10H 05/31/20 23:00 06/02/20 14:53 DC 06/01/20 07:56 100 MLS/HR Tramadol HCl (Ultram) 50 mg PRN Q6HRS PRN 06/01/20 10:30 06/03/20 06:25 50 MG Vancomycin HCl 250 ml @ 250 mls/hr 1X ONCE 05/31/20 19:00 05/31/20 19:59 DC 05/31/20 18:44 250 MLS/HR Labs: Lab Laboratory Tests Test 06/02/20 11:10 06/02/20 16:41 06/02/20 20:21 06/03/20 06:57 Glucose (Fingerstick) 281 mg/dL (70-99) 264 mg/dL (70-99) 280 mg/dL (70-99) 240 mg/dL (70-99) Objective: Assessment: Neuropathic ulcer, left great toe with osteomyelitis. June 01, 2000 s/p Left first toe closed amputation Diabetes mellitus with neuropathy Tobacco use disorder Peripheral arterial disease Plan: Plan of Care Continue Augmentin Continue wound care as directed SARI ARAUJO MD Jun 03, 2020 08:32
[2020-06-03 11:00] VITALS: BP 141/82
--- NOTE | 2020-06-03 11:04 | NUR ---
SW following. Discussed with RN, pt switched to oral abx, likely will discharge home today with self care. SW will continue to follow.
--- NOTE | 2020-06-03 11:32 | PDOC ---
Provider Note Provider Note Vascular S: Patient without complaints O: Awake and alert VSS, afebrile Left first toe amputation site incision dry and intact A/P: POD #2 Left first toe amputation Doing well Ok to discharge from vascular standpoint Cover incision daily with dry gauze, keep clean and dry Off-load with 1/2 shoe Follow up in 2-3 weeks. Justicifation of Admission Dx: Justifications for Admission: Justification of Admission Dx: Yes Cellulitis: Cellulitis MARNI GREER ENDO TECH Jun 03, 2020 11:32
[2020-06-03] MEDS ORDERED: AMOX1TAB11 PO (13:15)
[2020-06-03] MEDS ORDERED: OXYC1TAB19 PO (13:15)
[2020-06-03 15:00] VITALS: BP 142/85
--- NOTE | 2020-06-03 15:08 | PATHOLOGY ---
[facility] [place] Accession Number: [id number] . 01 Material submitted: . hallux - LEFT GREAT TOE. Modifiers: left . 01 Clinical history: . Osteomyelitis . 02 Diagnosis: Left first toe amputation: - Status post partial amputation of distal left first toe. - Focal ulceration of plantar aspect of toe with underlying acute cellulitis. - Pseudoepitheliomatous hyperplasia with marked hyperkeratosis and parakeratosis of skin bordering ulcer. - Proximal amputation margin negative for acute cellulitis/acute osteomyelitis. (JPM:[facility]; 06/03/2020) QMS 06/03/2020 1454 Local . 02 Electronically signed: . Luis Ribera MD, Pathologist NPI- [id number] . 01 Gross description: . The specimen is received in formalin, labeled "Vivek Jamie, left great toe". Received is a partially amputated digit measuring 3.3 x 3.2 x 3.1 cm in greatest dimensions. The bone margin is jagged in appearance. The bone and soft tissue margins are inked black. The nail is absent. The epidermal surface displays a well-circumscribed, irregular in contour, verrucoid and light pinzon lesion measuring 1.6 x 1.3 cm, which is 0.1 cm from the skin margin. Within the center of the lesion, there is a circular defect measuring 0.6 cm, which probes down to the bone. A full-thickness longitudinal cross-section is submitted proximal to distal aspects in cassettes A1 and A2, with cassette A1 submitted following decalcification. ([facility]; 06/01/2020) QAC/QAC 06/03/2020 1329 Local . 02 Pathologist provided ICD-10: N85.8, R23.4, L03.032, L97.529 . 02 CPT . 743858, 567844 Specimen Comment: A courtesy copy of this report has been sent to [phone], [phone]- Specimen Comment: [phone], Specimen Comment: Report sent to ,DR SANTIZO / DR ESPOSITO Performed at: 01 [facility] [address], [place] [id number] MD Nguyễn Delgadillo MD Phone: [phone] Performed at: 02 [facility] [address], [place] [id number] MD Luis Ribera MD Phone: [phone]
--- NOTE | 2020-06-03 15:15 | NUR ---
Wound care Wound care follow up for post op assessment. incision pictured for chart. Cleansed wound with chlorprep and covered with xeroform, gauze and kerlix. Recommend to change daily and follow up with vascular in 2 weeks. Discussed POC with pt and educated her to call [facility] if needed.
--- NOTE | 2020-06-03 15:25 | PDOC3 ---
Discharge Summary Visit Information Date of Admission: May 31, 2020 Date of Discharge: Jun 03, 2020 Admitting Diagnosis Comment: Diabetic foot infection, acute hx Left first toe osteomyelitis, status post left first toe amputation through the proximal phalanx with primary closure. 2018 prior amputation of the distal phalanx of the great t 06/2019 Findings compatible with significant greater than 50% stenosis at the right distal superficial femoral artery.Extensive bilateral peripheral artery disease. by arterial doppler Diabetes Tobacco abuse disorder morbid obesity hx diabetic neuropathy Final Diagnosis Diabetic foot infection, acute, secondary to neuropathic ulcer in left great toe osteomyelitis. Status post left great toe amputation on 06/01/2020 hx Left first toe osteomyelitis, status post left first toe amputation through the proximal phalanx with primary closure. 2019 prior amputation of the distal phalanx of the great t 06/2019 Findings compatible with significant greater than 50% stenosis at the right distal superficial femoral artery.Extensive bilateral peripheral artery disease. by arterial doppler Diabetes Tobacco abuse disorder morbid obesity hx diabetic neuropathy Brief Hospital Course Allergies Allergies Coded Allergies Type Severity Reaction Last Updated Verified No Known Drug Allergies 06/14/19 No Vital Signs Vital Signs Date Time Temp Pulse Resp B/P (MAP) Pulse Ox O2 Delivery O2 Flow Rate FiO2 06/03/20 14:14 94 Room Air 10.0 06/03/20 11:00 97.6 74 18 141/82 (101) 97.6 Lab Results Laboratory Tests Test 06/01/20 15:42 06/02/20 00:16 06/02/20 07:50 06/02/20 11:10 Glucose (Fingerstick) 224 mg/dL (70-99) 267 mg/dL (70-99) 243 mg/dL (70-99) 281 mg/dL (70-99) Test 06/02/20 16:41 06/02/20 20:21 06/03/20 06:57 06/03/20 10:16 Glucose (Fingerstick) 264 mg/dL (70-99) 280 mg/dL (70-99) 240 mg/dL (70-99) 327 mg/dL (70-99) Laboratory Tests Test 06/02/20 16:41 06/02/20 20:21 06/03/20 06:57 06/03/20 10:16 Glucose (Fingerstick) 264 mg/dL (70-99) 280 mg/dL (70-99) 240 mg/dL (70-99) 327 mg/dL (70-99) Brief Hospital Course History and Physical Date of Admission Date of Admission DATE: 05/31/20 TIME: 19:45 Identification/Chief Complaint Chief Complaint seen in [place] , 45 year old female with left great toe pain over the last 2 weeks. Patient's been followed with wound care and there is an ulcer present // tentative plans admit for amputation. denies any fevers or chills. // pain is moderate and worse with palpation and movement. // pain is nonradiating., HAS KNOWN PVD 2019 Patient admitted for vascular surgery consultation and also ID consultation, patient underwent left first toe close amputation on June 01 PREOPERATIVE DIAGNOSIS: Neuropathic ulcer, left great toe with osteomyelitis. POSTOPERATIVE DIAGNOSIS: Neuropathic ulcer, left great toe with osteomyelitis. OPERATION PERFORMED: Left great toe amputation. SURGEON: Nicolas Stuart MD JUNIOR PROJECT MANAGER: Lizzy Solis, medical student. ANESTHESIA: General. INDICATIONS: This is a 45-year-old diabetic, smoker, who has developed a neuropathic ulcer on the plantar aspect of the left great toe. She has had previous partial toe amputation, which healed nicely in 06/2019. She has monophasic arterial Doppler flow over both the posterior tibial and dorsal pedal arteries, which extends out to the base of the phalanx. The operation, risks, and benefits were explained to the patient. She understood and wished to proceed. OPERATIVE FINDINGS: The patient had excellent bleeding from the wound edges and no gross residual evidence of infection. The bone margin was sent for culture and primary closure was obtained. Patient tolerated the procedure well and she continued to remain hemodynamically stable throughout her hospital stay. Patient will be following up with her primary care physician within 1 week, signs and symptoms of concern and when to seek medical attention were discussed prior to discharge she acknowledged understanding of all the instructions Recommendations from vascular surgeon were as follows A/P: POD #2 Left first toe amputation Doing well Ok to discharge from vascular standpoint Cover incision daily with dry gauze, keep clean and dry Off-load with 1/2 shoe Follow up in 2-3 weeks. Assessment Assessment Physical Exam GENERAL: Alert and oriented x 3. The patient is propped up in bed, in no acute distress. HEENT: Normocephalic, atraumatic, anicteric. No thrush. Poor dentition. NECK: Supple. LUNGS: Clear. HEART: S1, S2. ABDOMEN: Soft, obese. Bowel sounds present. EXTREMITIES: No gross edema, cyanosis or clubbing. Left foot dressing in place intact did not take it down, dry NEUROLOGIC: Alert and oriented x 3, grossly nonfocal. PSYCHIATRIC: Cooperative, appropriate mood and affect. DERMATOLOGIC: Warm, dry. No generalized rash. General: Alert, Oriented X3, Cooperative, No acute distress Abdomen: Soft Extremities: No cyanosis Discharge Information Condition at Discharge: Improved Follow Up: Weeks Disposition/Orders: D/C to Home Scheduled Amoxicillin/Potassium Clav (Amox Tr-K Clv 875-125 Mg Tab) 1 Each Tablet, 1 TAB PO BID for cellulitis for 7 Days, #14 Prescribed by: TRICE BROOKS MD on 06/03/20 131 Dulaglutide (Trulicity) 0.75 Mg/0.5 Ml Pen.injctr, 0.75 MG SQ WEEKLY for dm, (Reported) Entered as Reported by: RASHEL HILL on 06/14/191409 Last Action: Converted on 05/31/202001 by MANNY SANTIZO MD Fluconazole (Diflucan) 100 Mg Tablet, 100 MG PO DAILY for yeast for 5 Days, #5 Prescribed by: MARLA GRANDE on 06/21/19916 Last Action: HELD on 05/31/202001 by MANNY SANTIZO MD Insulin Glargine,Hum.rec.anlog (Lantus Solostar) 100 Unit/1 Ml Insuln.pen, 40 UNIT SQ QHS for dm for 30 Days, #15 Ref 3 Prescribed by: MARLA GRANDE on 06/21/19918 Last Action: Reviewed on 05/31/202308 by CELSA ELAINE RN Insulin Lispro (Humalog) 100 Unit/1 Ml Cartridge, 15 UNIT SQ TID for dm for 30 Days, #15 Prescribed by: MARLA GRANDE on 06/21/19930 Last Action: Reviewed on 05/31/202308 by CELSA ELAINE RN Metformin Hcl (Metformin Hcl) 500 Mg Tablet, 500 MG PO TIDWMEALS for ANTI- DIABETIC, Ref 0 (Reported) Entered as Reported by: RASHEL HILL on 06/14/191409 Last Action: Reviewed on 05/31/202308 by CELSA ELAINE RN Pantoprazole Sodium (Protonix) 20 Mg Tablet.dr, 40 MG PO DAILY for gerd for 30 Days, #60 Prescribed by: MARLA GRANDE on 06/21/19918 Last Action: Reviewed on 05/31/202308 by CELSA ELAINE RN Pregabalin (Lyrica) 75 Mg Capsule, 3 CAP PO HS for fibro, #60 Ref 1 (Reported) Entered as Reported by: RASHEL HILL on 06/14/191408 Last Action: Continued on 05/31/202001 by MANNY SANTIZO MD Pregabalin (Lyrica) 75 Mg Capsule, 1 CAP PO DAILY07 for fibro, #60 Ref 2 (Reported) Entered as Reported by: RASHEL HILL on 06/14/191408 Last Action: Continued on 05/31/202001 by MANNY SANTIZO MD Scheduled PRN Cyclobenzaprine Hcl (Cyclobenzaprine Hcl) 10 Mg Tablet, 1 TAB PO QHS PRN for MUSCLE SPASMS, #30 (Reported) Entered as Reported by: RASHEL HILL on 06/14/191408 Last Action: Reviewed on 05/31/202308 by CELSA ELAINE RN Oxycodone/Apap 7.5-325 (Percocet 7.5-325 Mg Tablet ) 1 Each Tablet, 1 TAB PO PRN Q6HRS PRN for SEVERE PAIN for 3 Days, #12 Prescribed by: TRICE BROOKS MD on 06/03/20 1315 Discontinued Medications Amoxicillin/Potassium Clav (Augmentin 875-125 Tablet) 1 Each Tablet, 1 TAB PO BID for cellulitis for 5 Days, #10 Prescribed by: MARLA GRANDE on 06/21/19916 Last Action: HELD on 05/31/202001 by MANNY SANTIZO MD Justicifation of Admission Dx: Justifications for Admission: Justification of Admission Dx: Yes Cellulitis: Cellulitis TRICE BROOKS MD Jun 03, 2020 15:25
--- NOTE | 2020-06-03 15:40 | NUR ---
Discharge Note: AMAYA NEVAREZ Discharge instructions and discharge home medications reviewed with Patient and a copy given. All questions have been answered and understanding verbalized. The following instructions and handouts were given: diet, activity, medication list and follow up instructions provided to patient. Patient given wound care instructions as well. Discontinued lines and drains:Peripheral IV discontinued on previous date. Patient discharged to Home or Self Care withFamily Membervia Wheelchair
[2020-06-07] MEDS ORDERED: NON FORMULARY ITEM (Dulaglutide (Trulicity) 0.75 MG) SQ SCH (09:00)
== END 2020-06-03 15:15 | disposition home or self-care (01) | DRG 617 ==
LOC: ER 17:38 → OBSVTOIN 18:41 → 4 NORTH 18:41
PROVIDERS: ADMIT Family Medicine; ATTEND Family Medicine
PROC: 0Y6Q0Z1 Detachment at Left 1st Toe, High, Open Approach (ICD-10-PCS; principal; 2020-06-01 13:45)
DX: E11.69 Type 2 diabetes mellitus with other specified complication (principal); M86.9 Osteomyelitis, unspecified; L03.90 Cellulitis, unspecified; F17.210 Nicotine dependence, cigarettes, uncomplicated; E11.621 Type 2 diabetes mellitus with foot ulcer; L97.529 Non-pressure chronic ulcer of other part of left foot with unspecified severity; M79.7 Fibromyalgia; Z82.49 Family history of ischemic heart disease and other diseases of the circulatory system; Z83.3 Family history of diabetes mellitus; Z82.5 Family history of asthma and other chronic lower respiratory diseases; Z90.710 Acquired absence of both cervix and uterus; E66.01 Morbid (severe) obesity due to excess calories; Z68.30 Body mass index [BMI] 30.0-30.9, adult; E11.40 Type 2 diabetes mellitus with diabetic neuropathy, unspecified; G89.29 Other chronic pain
CPT/HCPCS: 36415; 71045; 73630; 80053; 82962; 83036; 85025; 85610; 85730; 86850; 86900; 86901; 87071; 87075; 93005; 96365; 96372; 96375; 99285; A7015; J1170; J1815; J1885; J2270; J2370; J2405; J2543; J2704; J3010; J3370; J7030; A4461; G0378

== ENCOUNTER 2020-06-28 06:39 | Outpatient (CLI) | payer OTHER ==
[~2020-06-28] VITALS: Ht 180.3 cm; Wt 96.6 kg
[2020-06-28] VITALS (11 sets, daily range): BP systolic 109–148; BP diastolic 56–82
[~2020-06-28 06:39] MED LIST changes: +AMOX1TAB11 PO; +OXYC1TAB19 PO
[2020-06-28] MEDS ORDERED: INSU100C SQ (07:36)
[2020-06-28] MEDS ORDERED: GABA300C18 PO (07:36)
[2020-06-28] MEDS ORDERED: INSU100I13 SQ (07:36)
[2020-06-28] MEDS ORDERED: MELO15TA23 PO (07:36)
[2020-06-28 07:40] LABS: BASO # 0.1 x10^3/uL (0.0-0.2); BASO % 1 % (0-3); EOS # 0.1 x10^3/uL (0.0-0.7); EOS % 2 % (0-3); HEMATOCRIT 44.4 % (36.0-47.0); HEMOGLOBIN 15.2 g/dL (12.0-15.5); LYMPH # 3.2 x10^3/uL (1.0-4.8); LYMPH % 42 % (24-48); MEAN CORPUSCULAR HEMOGLOBIN 30 pg (25-35); MEAN CORPUSCULAR HGB CONC 34 g/dL (31-37); MEAN CORPUSCULAR VOLUME 88 fL (79-100); MONO # 0.4 x10^3/uL (0.0-1.1); MONO % 5 % (0-9); NEUT # 3.9 x10^3/uL (1.8-7.7); NEUT % 50 % (31-73); PLATELET COUNT 276 x10^3/uL (140-400); RED BLOOD COUNT 5.06 x10^6/uL (3.50-5.40); RED CELL DISTRIBUTION WIDTH 13.3 % (11.5-14.5); WHITE BLOOD COUNT 7.8 x10^3/uL (4.0-11.0)
[2020-06-28 07:53] LABS: PROTHROMBIN TIME PATIENT 11.8 SEC (11.7-14.0)
[2020-06-28 07:54] LABS: CALCIUM 8.6 mg/dL (8.5-10.1); CREATININE 0.5 mg/dL (0.6-1.0)
[2020-06-28] MEDS ORDERED: HEPARIN for ARTERIAL LINE 1,500 ML ONE (07:59)
[2020-06-28] MEDS ORDERED: LIDOCAINE WITH 8.4% SOD BICARB 3 ML DISP.SYRIN. ONE (07:59)
[2020-06-28] MEDS ORDERED: IODIXANOL 320 MG/ML 100 ML VIAL. ONE (07:59)
[2020-06-28] MEDS ORDERED: ASPI81TA59 PO (08:31)
[2020-06-28] MEDS ORDERED: CLOP75TA PO (08:31)
[2020-06-28] MEDS ORDERED: MIDAZOLAM HCL/PF 2 MG/2 ML VIAL. ONE (08:40)
[2020-06-28] MEDS ORDERED: HEPARIN for IV BOLUS 10,000 UNIT/10 ML VIAL. ONE (08:40)
[2020-06-28] MEDS ORDERED: fentaNYL PF VIAL 100 MCG/2 ML VIAL ONE (08:40)
[2020-06-28] MEDS ORDERED: IODIXANOL 320 MG/ML 100 ML VIAL. IART ONE (09:00)
[2020-06-28] MEDS ORDERED: MIDAZOLAM HCL/PF 2 MG/2 ML VIAL. IV ONE (09:00)
[2020-06-28] MEDS ORDERED: fentaNYL PF VIAL 100 MCG/2 ML VIAL IV ONE (09:00)
[2020-06-28] MEDS ORDERED: LIDOCAINE WITH 8.4% SOD BICARB 3 ML DISP.SYRIN. IJ ONE (09:00)
[2020-06-28] MEDS ORDERED: CONTRAST GIVEN. MC PRN (09:15)
[2020-06-28] MEDS ORDERED: HEPARIN for IV BOLUS 10,000 UNIT/10 ML VIAL. IV ONE (09:30)
--- NOTE | 2020-06-28 13:30 | NUR ---
Discharge Note: AMAYA NEVAREZ Discharge instructions and discharge home medications reviewed with Patient and a copy given. All questions have been answered and understanding verbalized. Patient ate breakfast with no difficulties. The following instructions and handouts were given: Moderate sedation, Smoking cessation, diabetes management and groin site care. Discontinued lines and drains: Left hand PIV, dressing clean dry intact. Patient discharged to home with sister via wheelchair to private vehicle.
--- NOTE | 2020-06-29 15:25 | RAD ---
06/29/2020 1:10 PM 1. Abdominal angiography. 2. Pelvic angiography. 3. Right lower extremity angiography. 4.Left lower extremity angiography. Clinical Indication: Right leg claudication. History of severe peripheral vascular disease. Diminished ABIs. No current wound, right foot. History of left toe amputation Discussion: The procedure was explained in its entirety to the patient or the patients designated marketing development representative by a member of the treatment team, including a discussion of the risks, benefits and commonly accepted alternatives to the procedure, as well as the expected consequences of no therapy whatsoever. Discussion of the risks included, but was not limited to, those that are most frequent and those that are rare but possibly severe or life-threatening, as well as the possibility of unforeseen complications. All elements of maximal sterile barrier technique including the use of a cap, mask, sterile gown, sterile gloves, large sterile sheet, appropriate hand hygiene, and 2% chlorhexidine for cutaneous antisepsis (or acceptable alternative antiseptic per current guidelines) were followed for this procedure. The left groin was prepped and draped using sterile barrier technique as described above. 1% lidocaine was administered for local anesthesia. Ultrasound evaluation demonstrates left common femoral artery be patent. There is axis using direct ultrasound guidance and micropuncture technique. An Omni flush catheter was advanced into the abdominal aorta. Abdominal aortogram was obtained. There is no evidence of aortic aneurysm or dissection. Visualized mesenteric vessels are unremarkable. Catheter was repositioned in the inferior abdominal aorta and pelvic angiography was performed. There is moderate stenosis of the left internal iliac artery and ectasia of the right internal iliac artery. No other hemodynamically significant stenosis is identified. The aortic bifurcation was crossed. Angiography of the right lower extremity was performed. There is high-grade stenosis of the mid right SFA which is diffusely small in caliber there are chronic, well-developed collaterals arising from the SFA. There is reconstitution of the knee this big sandy SFA in the adductor canal. Popliteal artery is patent. The tibioperoneal trunk appears grossly patent. Anterior tibial artery and dorsalis pedis artery are patent. Peroneal artery is patent. Posterior tibial artery may be chronically occluded the aortic bifurcation was crossed. Attempts were made to find the exact site of SFA occlusion, and attempted recanalization. However given well-developed collaterals, the exact site of occlusion cannot be identified, and percutaneous recanalization was unsuccessful. Subsequently left lower extremity angiography was performed with essentially similar findings, with chronic total occlusion of the SFA. On the left however the site of SFA occlusion can be identified angiographically. Popliteal artery is patent. There is single vessel runoff on the left via the anterior tibial artery. Dorsalis pedis artery on the left however appears to be occluded with poor perfusion to the foot. A minx device was deployed. Hemostasis was achieved. Sterile dressings were applied. Total fluoroscopy time: 12.8 min Dose area product: 160 Gycm2 The procedures performed under conscious sedation including continuous cardiopulmonary monitoring via dedicated sedation nurse. [id number] sedation time: 59 Impression: 1. Chronic total occlusion, mid right SFA. Unsuccessful percutaneous recanalization. Patient will return to vascular surgery for consideration of femoropopliteal bypass. 2. Similar findings noted on the left. Either endovascular or traditional bypass revascularization could be considered.
== END 2020-06-28 13:50 | disposition home or self-care (01) ==
LOC: INTRAD 06:39
PROVIDERS: ATTEND Registered Nurse Medical-Surgical
DX: M79.605 Pain in left leg (principal); M79.604 Pain in right leg; I73.9 Peripheral vascular disease, unspecified; E11.42 Type 2 diabetes mellitus with diabetic polyneuropathy; F17.210 Nicotine dependence, cigarettes, uncomplicated; Z79.4 Long term (current) use of insulin; Z79.899 Other long term (current) drug therapy; Z79.82 Long term (current) use of aspirin
CPT/HCPCS: 36246; 36415; 75625; 75716; 76937; 80048; 85025; 85610; 99152; 99153; C1713; C1760; C1769; C1892; C1894; G0269; J1644; J2250; J3010; J3490; Q9967

== ENCOUNTER → 2020-07-29 | Outpatient (CLI) | payer OTHER ==
[2020-06-28 12:40] VITALS: BP 135/77
[~2020-07-29] MED LIST changes: +ASPI81TA59 PO; +CLOP75TA PO; +GABA300C18 PO; +MELO15TA23 PO
== END | disposition home or self-care (01) ==
LOC: LAB 07:37
PROVIDERS: ATTEND Specialist
DX: Z01.812 Encounter for preprocedural laboratory examination (principal); Z20.828 Contact with and (suspected) exposure to other viral communicable diseases; I73.9 Peripheral vascular disease, unspecified
CPT/HCPCS: U0003-CS

== ENCOUNTER 2020-08-02 05:46 | Inpatient (IN) | payer OTHER ==
[2020-08-02] VITALS (11 sets, daily range): BP systolic 99–115; BP diastolic 51–70
[~2020-08-02] VITALS: Ht 175.3 cm; Wt 95.8 kg
[2020-08-02] MEDS ORDERED: HEPARIN SODIUM 5,000 UNIT in IV NORMAL SALINE 500ML BAG 500 ML IRR ONE (06:00)
[2020-08-02] MEDS ORDERED: ONDANSETRON PF 4 MG/2 ML VIAL. ONE (06:35)
[2020-08-02] MEDS ORDERED: DEXAMETHASONE SOD PHOS 4 MG/ML VIAL ONE (06:35)
[2020-08-02] MEDS ORDERED: LIDOCAINE 2% PF 5 ML VIAL. ONE (06:36)
[2020-08-02 06:49] LABS: BASO # 0.1 x10^3/uL (0.0-0.2); BASO % 1 % (0-3); EOS # 0.1 x10^3/uL (0.0-0.7); EOS % 1 % (0-3); HEMATOCRIT 42.3 % (36.0-47.0); HEMOGLOBIN 14.3 g/dL (12.0-15.5); LYMPH # 3.5 x10^3/uL (1.0-4.8); LYMPH % 43 % (24-48); MEAN CORPUSCULAR HEMOGLOBIN 30 pg (25-35); MEAN CORPUSCULAR HGB CONC 34 g/dL (31-37); MEAN CORPUSCULAR VOLUME 89 fL (79-100); MONO # 0.5 x10^3/uL (0.0-1.1); MONO % 6 % (0-9); NEUT # 3.9 x10^3/uL (1.8-7.7); NEUT % 49 % (31-73); PLATELET COUNT 281 x10^3/uL (140-400); RED BLOOD COUNT 4.77 x10^6/uL (3.50-5.40); RED CELL DISTRIBUTION WIDTH 13.5 % (11.5-14.5); WHITE BLOOD COUNT 8.1 x10^3/uL (4.0-11.0)
[2020-08-02] MEDS: INSULIN LISPRO 100 UNIT/ML 3ML VIAL for OP,RR ONLY. SQ PRN ×3 (06:54→11:00)
[2020-08-02] MEDS ORDERED: IV RINGERS,LACTATED 1000ML 1,000 ML IV SCH (07:00)
[2020-08-02] MEDS ORDERED: fentaNYL PF VIAL 100 MCG/2 ML VIAL IV PRN ×2 (07:00)
[2020-08-02] MEDS ORDERED: ONDANSETRON PF 4 MG/2 ML VIAL. IV PRN (07:00)
[2020-08-02] MEDS ORDERED: PROCHLORPERAZINE 10 MG/2 ML VIAL. IV PRN (07:00)
[2020-08-02 07:05] LABS: CALCIUM 9.3 mg/dL (8.5-10.1); CREATININE 0.5 mg/dL (0.6-1.0)
[2020-08-02] MEDS ORDERED: ROCURONIUM 50 MG/5 ML VIAL. ONE (07:05)
[2020-08-02] MEDS ORDERED: MIDAZOLAM HCL/PF 2 MG/2 ML VIAL. ONE (07:05)
[2020-08-02] MEDS ORDERED: fentaNYL PF VIAL 100 MCG/2 ML VIAL ONE ×2 (07:05→09:02)
[2020-08-02] MEDS ORDERED: LIDOCAINE 1% Multi-Dose 20 ML VIAL. ONE (07:12)
[2020-08-02] MEDS ORDERED: BUPIVACAINE MPF 0.5% 30 ML VIAL. ONE (07:12)
[2020-08-02] MEDS ORDERED: PAPAVERINE 60 MG/2 ML VIAL. ONE (07:12)
[2020-08-02] MEDS ORDERED: IOHEXOL 300 MG/ML 50 ML VIAL. ONE (07:12)
[2020-08-02] MEDS ORDERED: GELATIN SPONGE SIZE 100. ONE (07:12)
[2020-08-02] MEDS ORDERED: SURGICEL FIBRILLAR 1X2 EACH. ONE (07:12)
[2020-08-02] MEDS ORDERED: THROMBIN TOPICAL 20,000 UNIT SPRAY.SYRN KIT TP ONE (07:13)
[2020-08-02] MEDS ORDERED: IV NORMAL SALINE 1000ML BAG 1,000 ML IV SCH (07:18)
--- NOTE | 2020-08-02 07:18 | PDOC ---
Provider Note Date of Service: DATE: 08/02/20 TIME: 07:15 Provider Note H&P Update: No change in exam or history since office H&P dated 07/12/2020. She has severe bilateral leg pain with minimal activity. Angiogram showed bilateral SFA occlusions with reconstituted popliteal arteries. I discussed the risks and potential benefits of right femoral to popliteal bypass. Risks include but are not limited to bleeding, infection, scarring, nerve injury, cardiac/pulmonary complications and . I also feel that some of her leg pain is likely not due to arterial insufficiency. She acknowledged and elected to proceed. Justifications for Admission Other Justification STEF GOMEZ MD Aug 02, 2020 07:18
[2020-08-02] MEDS ORDERED: 0.9 % SODIUM CHLORIDE 10 ML DISP.SYRIN. IV PRN (07:30)
[2020-08-02] MEDS ORDERED: ALTEPLASE 2 MG VIAL INT CAT ONE (07:30)
[2020-08-02] MEDS ORDERED: MAG HYDROX/ALUMINUM HYD/SIMETH 30 ML ORAL.SUSP PO PRN (07:30)
[2020-08-02] MEDS ORDERED: diphenhydrAMINE 50 MG/ML VIAL IV PRN (07:30)
[2020-08-02] MEDS ORDERED: ONDANSETRON PF 4 MG/2 ML VIAL. IVP PRN (07:30)
[2020-08-02] MEDS ORDERED: oxyCODONE/APAP 5/325 1 TAB TABLET PO PRN (07:30)
[2020-08-02] MEDS ORDERED: CALCIUM CARBONATE 500 MG TAB.CHEW PO PRN (07:30)
[2020-08-02] MEDS ORDERED: NALOXONE 0.4 MG/ML VIAL. IV PRN ×2 (07:30)
[2020-08-02] MEDS ORDERED: HEPARIN for IV BOLUS 10,000 UNIT/10 ML VIAL. ONE (08:44)
[2020-08-02] MEDS ORDERED: SEVOFLURANE > 120 MINUTES. IH ONE (09:33)
[2020-08-02] MEDS ORDERED: PROTAMINE 50 MG/5 ML VIAL. IV ONE (09:52)
[2020-08-02] MEDS ORDERED: NEOSTIGMINE METHYLSULFATE 5 MG/5 ML SYRINGE. ONE (09:56)
[2020-08-02] MEDS ORDERED: GLYCOPYRROLATE 1 MG/5 ML VIAL. ONE (09:56)
--- NOTE | 2020-08-02 10:41 | PDOC1 ---
History and Physical Date of Admission Date of Admission DATE: 08/02/20 TIME: 10:41 Identification/Chief Complaint Chief Complaint ADMITTED WITH SEVERE PVD Right femoral to below knee popliteal bypass with nonreversed great saphenous vein graft. History of Present Illness History of Present Illness HPI Prior left partial toe amputation in June of last year, which healed without incidents. She has had arterial duplex imaging, which suggests peripheral vascular disease. There were no elevated velocities; however, there is monophasic flow below the popliteal artery RECENT Diabetic foot infection, acute, secondary to neuropathic ulcer in left great toe osteomyelitis. Status post left great toe amputation on 06/01/2020 hx Left first toe osteomyelitis, status post left first toe amputation through the proximal phalanx with primary closure. 2019 prior amputation of the distal phalanx of the great t 06/2019 Findings compatible with significant greater than 50% stenosis at the right distal superficial femoral artery.Extensive bilateral peripheral artery disease. by arterial doppler Diabetes Tobacco abuse disorder morbid obesity hx diabetic neuropathy Past Medical History Past Medical History PAST MEDICAL HISTORY: Significant for type 2 diabetes, which she has been treated for 9 years and fibromyalgia. PAST SURGICAL HISTORY: Includes hysterectomy and partial amputation of the left great toe. SOCIAL HISTORY: The patient is a smoker. FAMILY HISTORY: Significant for diabetes. Pulmonary: No pertinent hx GI: No pertinent hx Heme/Onc: No pertinent hx Rheumatologic: Fibromyalgia Infectious disease: Other Endocrine: Diabetes Past Surgical History Past Surgical History: Hysterectomy Family History Family History: High Cholestrol, Hypertension Social History Smoke: No ALCOHOL: none Drugs: None Current Medications Current Medications Current Medications Heparin Sodium (Porcine) 5000 unit/Sodium Chloride 505 ml @ 505 mls/hr 1X ONCE IRR Last administered on 08/02/20at 08:10; Start 08/02/20 at 06:00; Stop 0 at 06:59; Status DC Cefazolin Sodium 1 gm/Sodium Chloride 500 ml @ 500 mls/hr 1X ONCE IRR Last administered on 08/02/20at 08:10; Start 08/02/20 at 06:00; Stop 08/02/20 at 06:59; Status DC Ondansetron HCl (Zofran) 4 mg PRN Q6HRS PRN IV NAUSEA/VOMITING; Start 08/02/20 at 07:00; Stop 08/03/20 at 06:59 Fentanyl Citrate (Fentanyl 2ml Vial) 25 mcg PRN Q5MIN PRN IV MILD PAIN 1-3; Start 08/02/20 at 07:00; Stop 08/03/20 at 06:59 Fentanyl Citrate (Fentanyl 2ml Vial) 50 mcg PRN Q5MIN PRN IV MODERATE TO SEVERE PAIN; Start 08/02/20 at 07:00; Stop 08/03/20 at 06:59 Morphine Sulfate (Morphine Sulfate) 1 mg PRN Q10MIN PRN IV SEVERE PAIN 7-10; Start 08/02/20 at 07:00; Stop 08/03/20 at 06:59 Ringer's Solution 1,000 ml @ 30 mls/hr Q24H IV Last administered on 08/02/20at 07:03; Start 08/02/20 at 07:00; Stop 08/02/20 at 18:59 Hydromorphone HCl (Dilaudid) 0.5 mg PRN Q10MIN PRN IV SEV PAIN, Second choice; Start 08/02/20 at 07:00; Stop 08/03/20 at 06:59 Prochlorperazine Edisylate (Compazine) 5 mg PACU PRN PRN IV NAUSEA, MRX1; Start 08/02/20 at 07:00; Stop 08/03/20 at 06:59 Cefazolin Sodium/ Dextrose 50 ml @ 100 mls/hr 1X PREOP PRN IV PRIOR TO PROCEDURE Last administered on 08/02/20at 07:25; Start 08/02/20 at 06:00; Stop 08/02/20 at 18:00 Ondansetron HCl (Zofran) 4 mg STK-MED ONCE .ROUTE ; Start 08/02/20 at 06:35; Stop 08/02/20 at 06:36; Status DC Dexamethasone Sodium Phosphate (Decadron) 4 mg STK-MED ONCE .ROUTE ; Start 08/02/20 at 06:35; Stop 08/02/20 at 06:36; Status DC Lidocaine HCl (Lidocaine Pf 2% Vial) 5 ml STK-MED ONCE .ROUTE ; Start 08/02/20 at 06:36; Stop 08/02/20 at 06:36; Status DC Insulin Human Lispro (HumaLOG VIAL for OP,RR ONLY) 0-10 units PRN Q1HR PRN SQ PER PROTOCOL Last administered on 08/02/20at 07:29; Start 08/02/20 at 06:45; Stop 08/03/20 at 06:44 Rocuronium [place] (Zemuron) 50 mg STK-MED ONCE .ROUTE ; Start 08/02/20 at 07:05; Stop 08/02/20 at 07:05; Status DC Fentanyl Citrate (Fentanyl 2ml Vial) 100 mcg STK-MED ONCE .ROUTE ; Start 08/02/20 at 07:05; Stop 08/02/20 at 07:05; Status DC Midazolam HCl (Versed) 2 mg STK-MED ONCE .ROUTE ; Start 08/02/20 at 07:05; Stop 08/02/20 at 07:05; Status DC Gelatin (Gelfoam Size 100) 1 each STK-MED ONCE .ROUTE ; Start 08/02/20 at 07:12; Stop 08/02/20 at 07:12; Status DC Lidocaine HCl (Lidocaine 1% 20ml Vial) 20 ml STK-MED ONCE .ROUTE ; Start 08/02/20 at 07:12; Stop 08/02/20 at 07:12; Status DC Iohexol (Omnipaque 300 Mg/ml) 50 ml STK-MED ONCE .ROUTE ; Start 08/02/20 at 07:12; Stop 08/02/20 at 07:13; Status DC Cellulose (Surgicel Fibrillar 1x2) 1 each STK-MED ONCE .ROUTE Last administered on 08/02/20at 09:50; Start 08/02/20 at 07:12; Stop 08/02/20 at 07:13; Status DC Papaverine HCl 60 mg STK-MED ONCE .ROUTE ; Start 08/02/20 at 07:12; Stop 08/02/20 at 07:13; Status DC Bupivacaine HCl (Sensorcaine Mpf 0.5%) 30 ml STK-MED ONCE .ROUTE ; Start 08/02/20 at 07:12; Stop 08/02/20 at 07:13; Status DC Thrombin 20,000 unit STK-MED ONCE TP ; Start 08/02/20 at 07:13; Stop 08/02/20 at 07:13; Status DC Alteplase, Recombinant (Cathflo) 4 mg 1X ONCE INT CAT ; Start 08/02/20 at 07:30; Stop 08/02/20 at 07:31; Status DC Oxycodone HCl (Roxicodone) 5 mg PRN Q3HRS PRN PO PAIN; Start 08/02/20 at 07:30 Al Hydroxide/Mg Hydroxide (Mylanta Plus Xs) 30 ml PRN Q3HRS PRN PO HEARTBURN / GAS; Start 08/02/20 at 07:30 Calcium Carbonate/ Glycine (Tums) 500 mg PRN Q3HRS PRN PO INDIGESTION; Start 08/02/20 at 07:30 Diphenhydramine HCl (Benadryl) 25 mg PRN Q6HRS PRN PO ITCHING; Start 08/02/20 at 07:30 Diphenhydramine HCl (Benadryl) 25 mg PRN Q6HRS PRN IV ITCHING; Start 08/02/20 at 07:30 Zolpidem Tartrate (Ambien) 5 mg PRN QHS PRN PO INSOMNIA; Start 08/02/20 at 07:30 Info (Non-Icu Electrolyte Protocol) 1 ea DAILY MC ; Start 08/03/20 at 09:00 Naloxone HCl (Narcan) 0.1 mg PRN Q2MIN PRN IV ADMIN; Start 08/02/20 at 07:30 Heparin Sodium (Porcine) (Heparin Sodium) 5,000 unit Q12HR SQ ; Start 08/02/20 at 21:00 Sodium Chloride (Normal Saline Flush) 3 ml QSHIFT PRN IV AFTER MEDS AND BLOOD DRAWS; Start 08/02/20 at 07:30 Sodium Chloride 1,000 ml @ 75 mls/hr [id number] IV ; Start 08/02/20 at 07:18 Oxycodone/ Acetaminophen (Percocet 5/325) 1 tab PRN Q4HRS PRN PO MILD PAIN, 1ST CHOICE; Start 08/02/20 at 07:30 Oxycodone/ Acetaminophen (Percocet 5/325) 2 tab PRN Q4HRS PRN PO MODERATE PAIN, SEVERE PAIN; Start 08/02/20 at 07:30 Morphine Sulfate (Morphine Sulfate) 2 mg PRN Q1HR PRN IV PAIN; Start 08/02/20 at 07:30 Naloxone HCl (Narcan) 0.4 mg PRN Q2MIN PRN IV SEE INSTRUCTIONS; Start 08/02/20 at 07:30 Sodium Chloride 1,000 ml @ 25 mls/hr Q24H IV ; Start 08/02/20 at 07:18 Docusate Sodium (Colace) 100 mg BID PO ; Start 08/02/20 at 21:00 Ondansetron HCl (Zofran) 4 mg PRN Q6HRS PRN IVP NAUESA, 1ST CHOICE; Start 08/02/20 at 07:30 Cefazolin Sodium (Ancef) 1 gm Q8HRS IVP ; Start 08/02/20 at 14:00; Stop 08/03/20 at 06:01; Status UNV Aspirin (Aspirin Chewable) 81 mg DAILY PO ; Start 08/03/20 at 09:00 Clopidogrel Bisulfate (Plavix) 75 mg DAILY PO ; Start 08/03/20 at 09:00 Cyclobenzaprine HCl (Flexeril) 10 mg PRN TID PRN PO MUSCLE SPASMS; Start 08/02/20 at 07:45 Gabapentin (Neurontin) 300 mg QHS PO ; Start 08/02/20 at 21:00 Insulin Glargine (Lantus Syringe) 20 unit QHS SQ ; Start 08/02/20 at 21:00 Non-Formulary Medication (Insulin Lispro (Humalog)) 10 unit DAILYAC PRN SQ rx; Start 08/02/20 at 07:45; Status UNV Pantoprazole Sodium (Protonix) 40 mg DAILYAC PO ; Start 08/03/20 at 07:30 Heparin Sodium (Porcine) (Heparin Sodium) 10,000 unit STK-MED ONCE .ROUTE ; Start 08/02/20 at 08:44; Stop 08/02/20 at 08:45; Status DC Fentanyl Citrate (Fentanyl 2ml Vial) 100 mcg STK-MED ONCE .ROUTE ; Start 08/02/20 at 09:02; Stop 08/02/20 at 09:03; Status DC Sevoflurane (Ultane) 90 ml STK-MED ONCE IH ; Start 08/02/20 at 09:33; Stop 08/02/20 at 09:33; Status DC Protamine Sulfate (Protamine) 50 mg STK-MED ONCE IV ; Start 08/02/20 at 09:52; Stop 08/02/20 at 09:52; Status DC Neostigmine [place] (Neostigmine Methylsulfate) 5 mg STK-MED ONCE .ROUTE ; Start 08/02/20 at 09:56; Stop 08/02/20 at 09:56; Status DC Glycopyrrolate (Robinul) 1 mg STK-MED ONCE .ROUTE ; Start 08/02/20 at 09:56; Stop 08/02/20 at 09:56; Status DC Active Scripts Active Protonix (Pantoprazole Sodium) 20 Mg Tablet.dr 40 Mg PO DAILY 30 Days Reported Clopidogrel (Clopidogrel Bisulfate) 75 Mg Tablet 1 Tab PO DAILY has not startedit yet Children's Aspirin (Aspirin) 81 Mg Tab.chew 1 Tab PO DAILY 30 Days Meloxicam 15 Mg Tablet 1 Tab PO DAILY 30 Days Gabapentin (Gabapentin) 300 Mg Capsule 300 Mg PO QHS Humalog (Insulin Lispro) 100 Unit/1 Ml Cartridge 10 Unit SQ DAILYAC PRN add an extra unit for Bg >200 Lantus Solostar (Insulin Glargine,Hum.rec.anlog) 100 Unit/1 Ml Insuln.pen 20 Unit SQ QHS Cyclobenzaprine Hcl 10 Mg Tablet 1 Tab PO TID PRN Allergies Allergies: Coded Allergies: No Known Drug Allergies (Unverified , 06/14/19) ROS Review of System Review of Systems: Constitutional: Denies fever or chills Eyes: Denies change in visual acuity HENT: Denies sore throat Respiratory: Denies cough or shortness of breath Cardiovascular: Denies chest pain or edema GI: Denies abdominal pain, nausea, vomiting, or diarrhea : Denies dysuria Musculoskeletal: Denies back pain or joint pain Integument: Denies rash Neurologic: Denies headache or focal weakness Psychiatric: Denies depression or anxiety 14 PT ROS OTHERWISE NEG Respiratory: No: Cough, Hemoptysis, Orthopnea, Pleuritic Pain, Shortness of b reath, SOB with excertion, Sputum Changes, Stridor, Tachypnea, Wheezing, Other Cardiovascular: No Chest Pain, No Palpitations, No Orthopnea, No Paroxysmal Noc. Dyspnea, No Edema, No Lt Headedness, No Other Gastrointestinal: No Nausea, No Vomiting, No Abdominal Pain, No Diarrhea, No Constipation, No Melena, No Hematochezia, No Other Neurological: Yes Gait Disturbance; No Behavorial Changes, No Bowel/Bladder ControlChng, No Confusion, No Dizziness, No Headaches, No Impaired Coord/balance, No Memory Loss, No Numbness/Tingling, No Seizures, No Speech Problems, No Tremors, No Visual Changes, No Weakness, No Other Labs Labs REASON: ? PAD - tobacco abuse and DM PROCEDURE: ARTERIAL STUDY LOWER EXT BI Bilateral lower extremity arterial Doppler ultrasound HISTORY: Peripheral artery disease. Tobacco abuse. TECHNIQUE: Color Doppler, grayscale and duplex analysis performed of the right and left lower extremity arterial structures, from the common femoral artery through the runoff vessels. COMPARISON: None are available All velocity measurements are in centimeters per second. Right leg: Biphasic waveforms throughout, except for monophasic waveforms at the anterior tibial artery and dorsalis pedis artery. Critical segmental velocity elevation of the distal superficial femoral artery, 249, as compared with 120 at the mid superficial femoral artery, compatible with a significant or greater than 50% stenosis. Left leg: Biphasic common femoral artery and proximal superficial femoral artery. Monophasic waveforms distal to this. No evidence of critical segmental velocity elevation. IMPRESSION: 1. Findings compatible with significant greater than 50% stenosis at the right distal superficial femoral artery. 2. Extensive bilateral peripheral artery disease. Electronically signed by: Rich Mancia MD (06/15/2019 5:21 PM) [facility] DICTATED and SIGNED BY: RICH MANCIA MD SEX: F STATUS: ADM IN LOCATION: [facility] DATE OF SURGERY: 08/02/2020 PREOPERATIVE DIAGNOSES: 1. Peripheral arterial disease with severe bilateral lower extremity pain. 2. Diabetes. 3. Hypertension. POSTOPERATIVE DIAGNOSES: 1. Peripheral arterial disease with severe bilateral lower extremity pain. 2. Diabetes. 3. Hypertension. PROCEDURES: Right femoral to below knee popliteal bypass with nonreversed great saphenous vein graft. SURGEON: Rainer Rincon MD LANDSCAPE SUPERVISOR: Magdalena Caceres APRN ANESTHESIA: General. INDICATIONS: The patient is a 45-year-old female with diabetes, hypertension, and peripheral arterial disease, who presents with severely limiting bilateral lower extremity pain. She had an angiogram that demonstrated superficial femoral artery occlusions bilaterally. There is collateral reconstitution of the popliteal artery. She presents for elective bypass. Laboratory Tests Test 08/02/20 06:20 08/02/20 06:45 08/02/20 07:26 08/02/20 08:39 White Blood Count 8.1 x10^3/uL (4.0-11.0) Red Blood Count 4.77 x10^6/uL (3.50-5.40) Hemoglobin 14.3 g/dL (12.0-15.5) Hematocrit 42.3 % (36.0-47.0) Mean Corpuscular Volume 89 fL (79-100) Mean Corpuscular Hemoglobin 30 pg (25-35) Mean Corpuscular Hemoglobin Concent 34 g/dL (31-37) Red Cell Distribution Width 13.5 % (11.5-14.5) Platelet Count 281 x10^3/uL (140-400) Neutrophils (%) (Auto) 49 % (31-73) Lymphocytes (%) (Auto) 43 % (24-48) Monocytes (%) (Auto) 6 % (0-9) Eosinophils (%) (Auto) 1 % (0-3) Basophils (%) (Auto) 1 % (0-3) Neutrophils # (Auto) 3.9 x10^3/uL (1.8-7.7) Lymphocytes # (Auto) 3.5 x10^3/uL (1.0-4.8) Monocytes # (Auto) 0.5 x10^3/uL (0.0-1.1) Eosinophils # (Auto) 0.1 x10^3/uL (0.0-0.7) Basophils # (Auto) 0.1 x10^3/uL (0.0-0.2) Sodium Level 134 mmol/L (136-145) Potassium Level 4.0 mmol/L (3.5-5.1) Chloride Level 99 mmol/L (98-107) Carbon Dioxide Level 25 mmol/L (21-32) Anion Gap 10 (6-14) Blood Urea Nitrogen 20 mg/dL (7-20) Creatinine 0.5 mg/dL (0.6-1.0) Estimated GFR (Cockcroft-Gault) 134.0 Glucose Level 397 mg/dL (70-99) Calcium Level 9.3 mg/dL (8.5-10.1) Glucose (Fingerstick) 407 mg/dL (70-99) 353 mg/dL (70-99) 282 mg/dL (70-99) Test 08/02/20 09:59 Glucose (Fingerstick) 263 mg/dL (70-99) Laboratory Tests Test 08/02/20 06:20 08/02/20 06:45 08/02/20 07:26 08/02/20 08:39 White Blood Count 8.1 x10^3/uL (4.0-11.0) Red Blood Count 4.77 x10^6/uL (3.50-5.40) Hemoglobin 14.3 g/dL (12.0-15.5) Hematocrit 42.3 % (36.0-47.0) Mean Corpuscular Volume 89 fL (79-100) Mean Corpuscular Hemoglobin 30 pg (25-35) Mean Corpuscular Hemoglobin Concent 34 g/dL (31-37) Red Cell Distribution Width 13.5 % (11.5-14.5) Platelet Count 281 x10^3/uL (140-400) Neutrophils (%) (Auto) 49 % (31-73) Lymphocytes (%) (Auto) 43 % (24-48) Monocytes (%) (Auto) 6 % (0-9) Eosinophils (%) (Auto) 1 % (0-3) Basophils (%) (Auto) 1 % (0-3) Neutrophils # (Auto) 3.9 x10^3/uL (1.8-7.7) Lymphocytes # (Auto) 3.5 x10^3/uL (1.0-4.8) Monocytes # (Auto) 0.5 x10^3/uL (0.0-1.1) Eosinophils # (Auto) 0.1 x10^3/uL (0.0-0.7) Basophils # (Auto) 0.1 x10^3/uL (0.0-0.2) Sodium Level 134 mmol/L (136-145) Potassium Level 4.0 mmol/L (3.5-5.1) Chloride Level 99 mmol/L (98-107) Carbon Dioxide Level 25 mmol/L (21-32) Anion Gap 10 (6-14) Blood Urea Nitrogen 20 mg/dL (7-20) Creatinine 0.5 mg/dL (0.6-1.0) Estimated GFR (Cockcroft-Gault) 134.0 Glucose Level 397 mg/dL (70-99) Calcium Level 9.3 mg/dL (8.5-10.1) Glucose (Fingerstick) 407 mg/dL (70-99) 353 mg/dL (70-99) 282 mg/dL (70-99) Test 08/02/20 09:59 Glucose (Fingerstick) 263 mg/dL (70-99) Images Images DPOA REVIEW 17 MIN What Is a Power of Certified Vehicle Fire Investigator? A power of disability attorney (POA) is a legal document giving one person (the agent or [id number]) the power to act for another person (the principal). The agent can have broad legal authority or limited authority to make legal decisions about the principal's property, finances or medical care. The power of disability attorney is frequently used in the event of a principal's illness or disability, or when the principal can't be present to sign necessary legal documents for financial transactions. A power of disability attorney can end for a number of reasons, such as when the principal dies, the principal revokes it, a court invalidates it, the principal divorces their spouse, who happens to be the agent, or the agent can no longer carry out the outlined responsibilities. Conventional POAs lapse when the creator becomes incapacitated, but a durable POA remains in force to enable the agent to manage the creators affairs, and a springing POA comes into effect only if and when the creator of the POA becomes incapacitated. A medical or healthcare POA enables an agent to make medical decisions on behalf of an incapacitated person. Berger Takeaways A power of disability attorney (POA) is a legal document giving one person, the agent or [id number] the power to act for another person, the principal. The agent can have broad legal authority or limited authority to make decisions about the principal's property, finances or medical care. The power of disability attorney is often used when a principal becomes ill or disabled, or when they can't be present to sign necessary legal documents for financial transactions. Understanding Power of Certified Vehicle Fire Investigator A power of disability attorney should be considered when planning for long-term care. There are different types of POAs that fall under either a general power of disability attorney or limited power of disability attorney. A general power of disability attorney acts on behalf of the principal in any and all matters, as allowed by the state. The agent under a general POA agreement may be authorized to take care of issues such as handling bank accounts, signing checks, selling property and assets like stocks, f A limited power of disability attorney gives the agent the power to act on behalf of the principal in specific matters or events. For example, the limited POA may explicitly state that the agent is only allowed to manage the principal's usp accounts. A limited POA may also be limited to a specific period of time (e.g., if the principal will be out of the country for, say, two years). Most [place] of disability attorney documents allow an agent to represent the principal in all property and financial matters as long as the principals mental state of mind is good. If a situation occurs where the principal becomes incapable of making decisions for him or herself, the POA agreement would automatically end. However, someone who wants the POA to remain in effect after the persons health deteriorates would need to sign a durable power of disability attorney (DPOA). What is an advance directive? An advance directive is a legal document that says how you want to be cared for if you are unable to make decisions. You can include what medical treatments you would want and who you would trust to make decisions for you. An advance directive can also include other legal documents. A living will is a list of treatment preferences. It can be used to indicate whether you would want cardiopulmonary resuscitation (CPR), tube feedings, a breathing machine, or certain medicines, like antibiotics. The durable power of disability attorney for health care document identifies the person you would want to make medical decisions for you. This person is also called a proxy. Your proxy should be familiar with your values and wishes. How do I get started? You can get advance directive documents for your state from your doctor's office or from http://www.caringinfo.org. Review the forms, and ask your doctor if you have any questions. Pick a person to be your proxy, and talk it over with that person. Smoking & Tobacco Use Fast Facts and Fact Sheets Fast Facts Smoking leads to disease and disability and harms nearly every organ of the body. Smoking is the leading cause of preventable . The tobacco industry spends billions of dollars each year on marketing cigarettes. Smoking costs the [place] billions of dollars each year. States do not spend much of the money they get from tobacco taxes and lawsuits to prevent smoking and help smokers quit. CDC recommends that states spend 12% of those funds on tobacco control. In 2018, 13.7% of all adults (34.2 million people) currently smoked cigarettes: 15.6% of men, 12.0% of women. Thousands of young people start smoking cigarettes every day. Many adult cigarette smokers want to quit smoking. More Facts and References Featured Fact Sheets Current Cigarette Smoking Among Adults in the [place] Economic Trends in Tobacco Health Effects of Cigarette Smoking Secondhand Smoke (SHS) Facts Smokeless Tobacco: Health Effects Cessation Economics Health Effects Secondhand Smoke Smokeless Tobacco Tobacco Marketing and Products Youth Tobacco Use Quit Smoking ORG plus icon Basic Information plus icon Tobacco-Related Disparities Morbidity and Mortality Weekly Reports (MMWR) Vital Signs Surgeon General's Reports on Smoking and Tobacco Use plus icon State and Community Resources plus icon Global Tobacco Control plus icon Multimedia & Tools plus icon Social_govd Get Email Updates To receive email updates about Smoking & Tobacco Use, enter your email address: Email Address What's this Submit Related CDC Sites Tips From Former Smokers Division of Cancer Prevention and Control Lung Cancer National Comprehensive Cancer Control Program Division of Reproductive Health More CDC Sites Social Media HAVE QUESTIONS? Visit [employer]-INFO Call [phone] Email [employer]-Turnip Truck II Open 03/06 [employer] INFORMATION Accessibility CONNECT WITH [employer] [place]. Department of Health & Human Services [place].gov VTE Prophylaxis Ordered VTE Prophylaxis Devices: Contraindicated VTE Pharmacological Prophylaxi: Yes Assessment/Plan Assessment/Plan IMPRESSION Right femoral to below knee popliteal bypass with nonreversed great saphenous vein graft. 08/02 Diabetic foot infection, hx Left first toe osteomyelitis, status post left first toe amputation through the proximal phalanx with primary closure. 2018 prior amputation of the distal phalanx of the great t 06/2019 Findings compatible with significant greater than 50% stenosis at the right distal superficial femoral artery.Extensive bilateral peripheral artery disease. by arterial doppler Diabetes Tobacco abuse disorder morbid obesity hx diabetic neuropathy PLAN ADMIT Consult dr Rincon TOBACCO CESSATION EDUCATION PROVIDED Justifications for Admission Other Justification MANNY SANTIZO MD Aug 02, 2020 10:41
[2020-08-02] MEDS ORDERED: MORPHINE SULFATE 2 MG/ML VIAL. ONE (10:52)
[2020-08-02] MEDS: MORPHINE SULFATE 2 MG/ML VIAL. IV PRN ×3 (10:55→19:02)
--- NOTE | 2020-08-02 11:04 | OP ---
DATE OF SURGERY: 08/02/2020 PREOPERATIVE DIAGNOSES: 1. Peripheral arterial disease with severe bilateral lower extremity pain. 2. Diabetes. 3. Hypertension. POSTOPERATIVE DIAGNOSES: 1. Peripheral arterial disease with severe bilateral lower extremity pain. 2. Diabetes. 3. Hypertension. PROCEDURES: Right femoral to below knee popliteal bypass with nonreversed great saphenous vein graft. SURGEON: Rainer Gomez MD TAX ASSISTANT: Magdalena Caceres APRN ANESTHESIA: General. INDICATIONS: The patient is a 45-year-old female with diabetes, hypertension, and peripheral arterial disease, who presents with severely limiting bilateral lower extremity pain. She had an angiogram that demonstrated superficial femoral artery occlusions bilaterally. There is collateral reconstitution of the popliteal artery. She presents for elective bypass. FINDINGS: The right great saphenous vein was of reasonable caliber. She underwent bypass from the common femoral artery to the below knee popliteal artery. The below knee popliteal artery with small, but there was minimal plaquing. There is excellent biphasic flow in the bypass graft and distal popliteal artery at the completion of the case. DESCRIPTION OF PROCEDURE: The patient was taken to the operating room and placed supine on the operating table. She underwent general anesthetic. Her right lower abdomen and right lower extremity were prepped and draped in the normal sterile fashion. Ioban occlusive dressing was placed over the surgical field. Longitudinal incision was made in the right groin. This incision carried down to subcutaneous tissue to expose the common, proximal superficial and deep femoral arteries. Small crossing vessels were divided between Hemoclips. The great saphenous vein was then mobilized from the saphenofemoral junction medially along the right leg, facilitated by additional counter incisions. The vein was mobilized, dividing side branches between 3-0 silk ties and Hemoclips. Once the vein was adequately mobilized, the medial fascia was opened in the medial calf to expose the below knee popliteal artery. The popliteal artery was carefully mobilized free from the surrounding tissue. This was supple and felt to be a reasonable target vessel. She was given 9000 units of IV heparin. After adequate circulation time, the saphenous vein was doubly clipped distally and divided. Saphenofemoral junction was clamped and divided. The saphenofemoral junction was oversewn with running 5-0 Prolene suture. The vein was then prepped, flushing the vein with heparinized saline solution. The vein was distended with hydrostatic pressure. The valves were lysed with a valvulotome. The right common femoral artery was clamped proximally and the superficial and deep femoral arteries were controlled distally. Anterior arteriotomy was performed with Lua scissors for approximately 1.5 cm in length on the distal right common femoral artery. Vein graft was beveled to an appropriate manner and placed in a nonreversed fashion. An end-to-side anastomosis constructed to the common femoral artery using running 5-0 Prolene suture. Upon completion of the anastomosis, the arteries were backward and forward flushed, the anastomosis completed and flow reconstituted to the femoral artery. There was good hemostasis. The vein graft was then tunneled in a new subcutaneous tract anterior to the previous saphenous vein retrieval incisions using a Sebastien tunneler. Care was taken to prevent twisting of the graft. The popliteal artery was then clamped proximally and distally and anterior medial arteriotomy was performed and extended with Lua scissors for approximately 12 mm in length. The vein was beveled to the appropriate length. An end-to-side anastomosis constructed with a running 6-0 Prolene suture. Prior to completion of the anastomosis, the artery was backward and forward flushed, the anastomosis completed and flow reconstituted through the popliteal artery and new created bypass. There was good hemostasis. The patient was given 20 mg of protamine to reverse the effects of heparin. Subcutaneous tissue was copiously irrigated with saline irrigation. Fibrillar Surgicel was placed around the anastomosis for added hemostasis. Subcutaneous tissues reapproximated in the right groin using three layers of running 2-0 Vicryl sutures. Skin was reapproximated with a running subcuticular 4-0 Vicryl. Mastisol and Steri-Strips were applied. Subcutaneous tissue was reapproximated and the remaining incisions in 2 layers using running 3-0 Vicryl sutures. Skin was reapproximated with skin greg. Sterile dressings were applied. The patient tolerated the procedure well and there were no complications. ESTIMATED BLOOD LOSS: 50 mL. SPECIMEN: None. Please note that Magdalena Caceres assisted with exposure, bypass and closure of the procedure. RAINER GOMEZ MD DR: FROILAN/irving JOB#: [id number] / [id number] DON Ashley
[2020-08-02] MEDS ORDERED: HYDROmorphone 2 MG/ML VIAL ONE (11:05)
[2020-08-02] MEDS: HYDROmorphone 2 MG/ML VIAL IV PRN ×4 (11:08→11:29)
[2020-08-02] MEDS ORDERED: DEXTROSE 50% 25 GM / 50ML DISP.SYRIN. IV PRN (13:15)
[2020-08-02] MEDS: oxyCODONE IR 5 MG TABLET PO PRN ×2 (13:19→16:11)
[2020-08-02] MEDS: INSULIN LISPRO 300 UNITS/3 ML VIAL. SQ SCH ×3 (14:01→17:54)
[2020-08-02] MEDS: oxyCODONE/APAP 5/325 1 TAB TABLET PO PRN ×2 (14:07→22:19)
[2020-08-02] MEDS: ceFAZolin SODIUM IV Push 1 GM VIAL. IVP SCH ×2 (16:05→23:51)
[2020-08-02] MEDS: IV 1/2 NORMAL SALINE 1,000 ML IV SCH (20:38)
[2020-08-02] MEDS: GABAPENTIN 300 MG CAPSULE. PO SCH (21:56)
[2020-08-02] MEDS: ZOLPIDEM 5 MG TABLET. PO PRN (21:56)
[2020-08-02] MEDS: INSULIN GLARGINE SYRINGE. SQ SCH (21:57)
[2020-08-02] MEDS: HEPARIN for SUB-Q USE 5,000 UNIT/ML VIAL. SQ SCH (21:58)
[2020-08-02] MEDS: DOCUSATE SODIUM 100 MG CAPSULE. PO SCH (21:58)
[2020-08-03] MEDS: oxyCODONE IR 5 MG TABLET PO PRN (01:34)
[2020-08-03 03:35] VITALS: BP 112/65
[2020-08-03] MEDS: MORPHINE SULFATE 2 MG/ML VIAL. IV PRN ×5 (04:08→20:16)
[2020-08-03] MEDS: IV 1/2 NORMAL SALINE 1,000 ML IV SCH ×2 (04:09→09:58)
[2020-08-03] MEDS: ceFAZolin SODIUM IV Push 1 GM VIAL. IVP SCH (06:29)
[2020-08-03 07:00] VITALS: BP 113/77
[2020-08-03] MEDS: DOCUSATE SODIUM 100 MG CAPSULE. PO SCH ×2 (08:19→21:26)
[2020-08-03] MEDS: PANTOPRAZOLE 40 MG TABLET.DR. PO SCH (08:19)
[2020-08-03] MEDS: ASPIRIN CHEWABLE 81 MG TABLET. PO SCH (08:19)
[2020-08-03] MEDS: CLOPIDOGREL BISULFATE 75 MG TABLET PO SCH (08:19)
[2020-08-03] MEDS: INSULIN LISPRO 300 UNITS/3 ML VIAL. SQ SCH ×6 (08:31→17:28)
[2020-08-03] MEDS: HEPARIN for SUB-Q USE 5,000 UNIT/ML VIAL. SQ SCH ×2 (08:32→21:29)
[2020-08-03] MEDS: ELECTROLYTE (NON-ICU) PROTOCOL MC SCH (09:00)
[2020-08-03] MEDS ORDERED: FLU VACC QS 2020-21(6MOS+)/PF 0.5 ML SYRINGE. VAX IM ONE (09:00)
[2020-08-03 09:33] LABS: BASO # 0.1 x10^3/uL (0.0-0.2); BASO % 1 % (0-3); EOS % 0 % (0-3); HEMOGLOBIN 13.7 g/dL (12.0-15.5); LYMPH # 0.9 x10^3/uL (1.0-4.8); LYMPH % 9 % (24-48); MEAN CORPUSCULAR HEMOGLOBIN 30 pg (25-35); MEAN CORPUSCULAR HGB CONC 34 g/dL (31-37); MEAN CORPUSCULAR VOLUME 89 fL (79-100); MONO # 0.5 x10^3/uL (0.0-1.1); MONO % 5 % (0-9); NEUT % 86 % (31-73); PLATELET COUNT 224 x10^3/uL (140-400); RED BLOOD COUNT 4.62 x10^6/uL (3.50-5.40); RED CELL DISTRIBUTION WIDTH 13.5 % (11.5-14.5); WHITE BLOOD COUNT 10.4 x10^3/uL (4.0-11.0)
[2020-08-03 09:52] LABS: CALCIUM 8.9 mg/dL (8.5-10.1); CREATININE 0.5 mg/dL (0.6-1.0); MAGNESIUM 1.9 mg/dL (1.8-2.4); PHOSPHORUS 3.7 mg/dL (2.6-4.7); POTASSIUM 3.5 mmol/L (3.5-5.1)
[2020-08-03] MEDS: oxyCODONE/APAP 5/325 1 TAB TABLET PO PRN ×3 (10:07→21:27)
[2020-08-03 11:00] VITALS: BP 110/62
[2020-08-03 11:06] LABS: % BANDS 3 % (0-9); % LYMPHS 9 % (24-48); % MONOS 5 % (0-10); % SEGS 83 % (35-66); PLT ESTIMATE ADEQUATE (ADEQUATE)
--- NOTE | 2020-08-03 12:13 | NUR ---
SS following for discharge planning. SS reviewed pt chart and discussed with pt RN. Pt is from home with family and is currently on room air. Pt had right below the knee bypass on 08/02/2020. PT/OT recommending acute rehabilitation. SS will continue to follow for discharge planning.
--- NOTE | 2020-08-03 12:21 | PDOC ---
Provider Note Date of Service: DATE: 08/03/20 TIME: 12:17 Provider Note Provider Note Vascular S: Patient seen and examined in room. Patient complaining of right thigh incisional pain, severe last p.m. and early a.m., now improving and tolerable Patient up in chair Complain of some nausea and vomiting. O: Awake and alert Vital signs stable, afebrile Right leg incisions dry and intact Right foot warm, calf is soft, no swelling. Doppler dorsalis pedis. A/P: Severe limb threatening right lower extremity pain POD #1 Right femoral to popliteal bypass using greater saphenous vein. Doing well, some pain. Up ad fiona Advance diet Dc indwelling urinary catheter Saline lock IV if tolerates diet SS for discharge planning CBC - BMP 08/03/20 09:10 Justicifation of Admission Dx: Justifications for Admission: Justification of Admission Dx: Yes Cellulitis: Cellulitis MARNI GREER SALES INCENTIVE ANALYST Aug 03, 2020 12:21
--- NOTE | 2020-08-03 13:30 | PDOC ---
[facility] [facility] PROGRESS NOTE Date of Service DOS: DATE: 08/03/20 TIME: 13:26 Chief Complaint Chief Complaint Right femoral to below knee popliteal bypass with nonreversed great saphenous vein graft. 08/02 Diabetic foot infection, hx Left first toe osteomyelitis, status post left first toe amputation through the proximal phalanx with primary closure. 2018 prior amputation of the distal phalanx of the great t 06/2019 Findings compatible with significant greater than 50% stenosis at the right distal superficial femoral artery.Extensive bilateral peripheral artery disease. by arterial doppler Diabetes Tobacco abuse disorder morbid obesity hx diabetic neuropathy Continue PT OT R ISS and Accu-Cheks Every 4 hour vascular checks Disposition: Acute rehab, pending approval and location Smoking cessation: Total time spent was > 12 minutes in face to face counseling. Patient has agreed to consider nicotine patches/gum or to start on Varnicline when discharged History of Present Illness History of Present Illness 08/03/2020 No acute events overnight. Patient seen and examined bedside. Pain is just finished working with physical therapy and does complain of right lower extremity pain near incision sites. Patient's chart, labs, images were reviewed and discussed with RN Vitals/I&O Vitals/I&O: Vital Signs Date Time Temp Pulse Resp B/P (MAP) Pulse Ox O2 Delivery O2 Flow Rate FiO2 08/03/20 11:00 98.8 84 18 110/62 (78) 96 Room Air 98.8 08/03/20 01:34 8.0 I & O 0 08/02/20 08/02/20 08/03/20 15:00 23:00 07:00 Intake Total 1850 ml 237 ml 500 ml Output Total 250 ml 600 ml 1700 ml Balance 1600 ml -363 ml -1200 ml Physical Exam Physical Exam: GEN: No apparent distress. Alert and oriented HEENT: Normal cephalic, atraumatic, external auditory canals are patent NECK: Supple, no JVD, no thyromegaly was noted LUNGS: Bilateral clear HEART: RRR, S1, S2 present. Peripheral pulses intact, no obvious murmurs noted ABDOMEN: Soft, nontender. Positive bowel sounds, no organomegaly, normal bowel sounds EXTREMITIES: Right lower extremity dressings are clear dry and intact. Labs Labs: Laboratory Tests Test 08/02/20 17:45 08/02/20 21:19 08/03/20 07:56 08/03/20 09:10 Glucose (Fingerstick) 275 mg/dL (70-99) 187 mg/dL (70-99) 329 mg/dL (70-99) White Blood Count 10.4 x10^3/uL (4.0-11.0) Red Blood Count 4.62 x10^6/uL (3.50-5.40) Hemoglobin 13.7 g/dL (12.0-15.5) Hematocrit 41.0 % (36.0-47.0) Mean Corpuscular Volume 89 fL (79-100) Mean Corpuscular Hemoglobin 30 pg (25-35) Mean Corpuscular Hemoglobin Concent 34 g/dL (31-37) Red Cell Distribution Width 13.5 % (11.5-14.5) Platelet Count 224 x10^3/uL (140-400) Neutrophils (%) (Auto) 86 % (31-73) Lymphocytes (%) (Auto) 9 % (24-48) Monocytes (%) (Auto) 5 % (0-9) Eosinophils (%) (Auto) 0 % (0-3) Basophils (%) (Auto) 1 % (0-3) Neutrophils # (Auto) 9.0 x10^3/uL (1.8-7.7) Lymphocytes # (Auto) 0.9 x10^3/uL (1.0-4.8) Monocytes # (Auto) 0.5 x10^3/uL (0.0-1.1) Eosinophils # (Auto) 0.0 x10^3/uL (0.0-0.7) Basophils # (Auto) 0.1 x10^3/uL (0.0-0.2) Segmented Neutrophils % 83 % (35-66) Band Neutrophils % 3 % (0-9) Lymphocytes % 9 % (24-48) Monocytes % 5 % (0-10) Platelet Estimate Adequate (ADEQUATE) Sodium Level 138 mmol/L (136-145) Potassium Level 3.5 mmol/L (3.5-5.1) Chloride Level 100 mmol/L (98-107) Carbon Dioxide Level 25 mmol/L (21-32) Anion Gap 13 (6-14) Blood Urea Nitrogen 14 mg/dL (7-20) Creatinine 0.5 mg/dL (0.6-1.0) Estimated GFR (Cockcroft-Gault) 134.0 Glucose Level 320 mg/dL (70-99) Calcium Level 8.9 mg/dL (8.5-10.1) Phosphorus Level 3.7 mg/dL (2.6-4.7) Magnesium Level 1.9 mg/dL (1.8-2.4) Test 08/03/20 12:15 Glucose (Fingerstick) 300 mg/dL (70-99) Comment Review of Relevant I have reviewed the following items filemon (where applicable) has been applied. Medications: Current Medications Medications (Trade) Dose Ordered Sig/Eun Route PRN Reason Start Time Stop Time Status Last Admin Dose Admin Info (Non-Icu Electrolyte Protocol) 1 ea DAILY MC 08/03/20 09:00 08/03/20 09:00 Heparin Sodium (Porcine) (Heparin Sodium) 5,000 unit Q12HR SQ 08/02/20 21:00 08/03/20 08:32 Docusate Sodium (Colace) 100 mg BID PO 08/02/20 21:00 08/03/20 08:19 Cefazolin Sodium (Ancef) 1 gm Q8H IVP 08/02/20 15:00 08/03/20 07:01 DC 08/03/20 06:29 Aspirin (Aspirin Chewable) 81 mg DAILY PO 08/03/20 09:00 08/03/20 08:19 Clopidogrel Bisulfate (Plavix) 75 mg DAILY PO 08/03/20 09:00 08/03/20 08:19 Gabapentin (Neurontin) 300 mg QHS PO 08/02/20 21:00 08/02/20 21:56 Insulin Glargine (Lantus Syringe) 20 unit QHS SQ 08/02/20 21:00 08/02/20 21:57 Insulin Human Lispro (HumaLOG) 10 units TIDWMEALS SQ 08/02/20 17:00 08/03/20 12:26 Pantoprazole Sodium (Protonix) 40 mg DAILYAC PO 08/03/20 07:30 08/03/20 08:19 Influenza Virus Vaccine Quadrival (Fluzone Quad [id number] Syringe) 0.5 ml ONCE ONCE VAX IM 08/03/20 09:00 08/03/20 09:01 DC 08/03/20 10:09 Justifications for Admission Other Justification JILLIAN GALLEGOS MD Aug 03, 2020 13:30
[2020-08-03 15:00] VITALS: BP 119/72
[2020-08-03] MEDS: CYCLOBENZAPRINE 10 MG TABLET. PO PRN (17:20)
[2020-08-03 19:30] VITALS: BP 111/66
[2020-08-03] MEDS: ZOLPIDEM 5 MG TABLET. PO PRN (21:26)
[2020-08-03] MEDS: GABAPENTIN 300 MG CAPSULE. PO SCH (21:26)
[2020-08-03] MEDS: INSULIN GLARGINE SYRINGE. SQ SCH (21:30)
[2020-08-03 22:46] VITALS: BP 116/70
[2020-08-04] MEDS: MORPHINE SULFATE 2 MG/ML VIAL. IV PRN (00:35)
[2020-08-04] MEDS: CYCLOBENZAPRINE 10 MG TABLET. PO PRN ×4 (02:45→21:41)
[2020-08-04] MEDS: oxyCODONE/APAP 5/325 1 TAB TABLET PO PRN ×2 (02:46→09:40)
[2020-08-04 03:24] VITALS: BP 117/77
[2020-08-04] MEDS ORDERED: BENZOCAINE/MENTHOL LOZENGE. PO PRN (06:15)
[2020-08-04 07:00] VITALS: BP 118/70
[2020-08-04] MEDS: HEPARIN for SUB-Q USE 5,000 UNIT/ML VIAL. SQ SCH ×2 (08:40→21:40)
[2020-08-04] MEDS: ASPIRIN CHEWABLE 81 MG TABLET. PO SCH (08:46)
[2020-08-04] MEDS: DOCUSATE SODIUM 100 MG CAPSULE. PO SCH ×3 (08:46→21:41)
[2020-08-04] MEDS: PANTOPRAZOLE 40 MG TABLET.DR. PO SCH (08:47)
[2020-08-04] MEDS: CLOPIDOGREL BISULFATE 75 MG TABLET PO SCH (08:47)
[2020-08-04] MEDS: INSULIN LISPRO 300 UNITS/3 ML VIAL. SQ SCH ×6 (08:52→17:49)
[2020-08-04] MEDS: ELECTROLYTE (NON-ICU) PROTOCOL MC SCH (09:00)
[2020-08-04 11:00] VITALS: BP 121/66
[2020-08-04] MEDS: oxyCODONE IR 5 MG TABLET PO PRN (11:25)
--- NOTE | 2020-08-04 11:48 | PDOC ---
[employer] PROGRESS NOTE Date of Service DOS: DATE: 08/04/20 TIME: 11:46 Chief Complaint Chief Complaint Right femoral to below knee popliteal bypass with nonreversed great saphenous vein graft. 08/02 Diabetic foot infection, hx Left first toe osteomyelitis, status post left first toe amputation through the proximal phalanx with primary closure. 2018 prior amputation of the distal phalanx of the great t 06/2019 Findings compatible with significant greater than 50% stenosis at the right distal superficial femoral artery.Extensive bilateral peripheral artery disease. by arterial doppler Diabetes Tobacco abuse disorder morbid obesity hx diabetic neuropathy Continue IV and p.o. pain control Continue PT OT R ISS and Accu-Cheks Every 4 hour vascular checks Disposition: Acute rehab, pending approval and location History of Present Illness History of Present Illness 08/04/2020 No acute events overnight. Patient seen and examined bedside. Patient continues to have right lower extremity pain. Working with physical therapy. Patient's chart, labs, images were reviewed and discussed with RN 08/03/2020 No acute events overnight. Patient seen and examined bedside. Pain is just finished working with physical therapy and does complain of right lower extremity pain near incision sites. Patient's chart, labs, images were reviewed and discussed with RN Vitals/I&O Vitals/I&O: Vital Signs Date Time Temp Pulse Resp B/P (MAP) Pulse Ox O2 Delivery O2 Flow Rate FiO2 08/04/20 11:25 Room Air 08/04/20 11:00 98.0 84 20 121/66 (84) 95 98.0 I & O 08/03/20 08/03/20 08/04/20 15:00 23:00 07:00 Intake Total 487 ml 300 ml 550 ml Output Total 850 ml 1550 ml Balance -363 ml 300 ml -1000 ml Physical Exam Physical Exam: GEN: No apparent distress. Alert and oriented HEENT: Normal cephalic, atraumatic, external auditory canals are patent NECK: Supple, no JVD, no thyromegaly was noted LUNGS: Bilateral clear HEART: RRR, S1, S2 present. Peripheral pulses intact, no obvious murmurs noted ABDOMEN: Soft, nontender. Positive bowel sounds, no organomegaly, normal bowel sounds EXTREMITIES: Right lower extremity dressings are clear dry and intact. Labs Labs: Laboratory Tests Test 08/03/20 12:15 9/23/20 17:22 08/03/20 21:16 08/04/20 08:02 Glucose (Fingerstick) 300 mg/dL (70-99) 240 mg/dL (70-99) 186 mg/dL (70-99) 254 mg/dL (70-99) Comment Review of Relevant I have reviewed the following items filemon (where applicable) has been applied. Medications: Current Medications Medications (Trade) Dose Ordered Sig/Eun Route PRN Reason Start Time Stop Time Status Last Admin Dose Admin Throat Lozenges (Cepacol Sore Throat Lozenge) 1 boby PRN Q2HRS PRN PO SORE THROAT 08/04/20 06:15 08/04/20 06:53 Justifications for Admission Other Justification JILLIAN GALLEGOS MD Aug 04, 2020 11:48
--- NOTE | 2020-08-04 13:10 | PDOC ---
Provider Note Date of Service: DATE: 08/04/20 TIME: 13:05 Provider Note Provider Note Vascular S: Patient seen and examined in room. Patient complaining of right thigh incisional pain. Patient up in chair Tolerating diet O: Awake and alert Vital signs stable, afebrile Right leg incisions dry and intact Right foot warm, calf is soft, no swelling. Doppler dorsalis pedis. A/P: Severe limb threatening right lower extremity pain POD #2 Right femoral to popliteal bypass using greater saphenous vein. Doing well, continues to have pain. Elevated BG, discussed with RN will adjust insulin dosing if ok with IM Up ad fiona SS for discharge planning, recommending rehab, patient is concerned with navigating multiple stairs in her home. Item Value Date Time Glucose (Fingerstick) 300 mg/dL H 08/03/20 1215 Glucose (Fingerstick) 240 mg/dL H 08/03/20 1722 Glucose (Fingerstick) 186 mg/dL H 08/03/20 2116 Glucose (Fingerstick) 254 mg/dL H 08/04/20 0802 Glucose (Fingerstick) 216 mg/dL H 08/04/20 1207 Justicifation of Admission Dx: Justifications for Admission: Justification of Admission Dx: Yes Cellulitis: Cellulitis MARNI GREER DIRECTOR OF STUDENT LIFE Aug 04, 2020 13:10
--- NOTE | 2020-08-04 13:13 | NUR ---
SS following up with discharge planning. SS reviewed pt chart and discussed with pt RN. Pt is currently on room air. PT/OT recommending acute rehabilitation. COVID19 negative on 07/29/2020. SS met with pt to discuss acute rehabilitation and discharge planning. Pt declining acute rehabilitation due to proximity from her home. Pt requested [facility] or [facility]. SS contacted [facility] and was informed that they only take straight Medicare in the swing bed and cannot accept [place] insurance. SS phoned and faxed referral to [facility], ; fax [phone]. SS will await acceptance decision and will proceed accordingly.
[2020-08-04] MEDS: oxyCODONE/APAP 10/325 1 TAB TABLET PO PRN ×2 (14:53→20:43)
[2020-08-04 15:00] VITALS: BP 104/66
[2020-08-04 19:31] VITALS: BP 125/75
[2020-08-04] MEDS: ZOLPIDEM 5 MG TABLET. PO PRN ×2 (21:38→21:41)
[2020-08-04] MEDS: GABAPENTIN 300 MG CAPSULE. PO SCH ×2 (21:38→21:41)
[2020-08-04] MEDS: INSULIN GLARGINE SYRINGE. SQ SCH (21:39)
[2020-08-04 22:31] VITALS: BP 127/72
[2020-08-05] MEDS: oxyCODONE/APAP 10/325 1 TAB TABLET PO PRN ×3 (02:19→20:31)
[2020-08-05 02:49] VITALS: BP 129/72
[2020-08-05] MEDS: PANTOPRAZOLE 40 MG TABLET.DR. PO SCH (07:19)
[2020-08-05 07:29] VITALS: BP 118/65
[2020-08-05] MEDS: HEPARIN for SUB-Q USE 5,000 UNIT/ML VIAL. SQ SCH ×2 (09:00→20:31)
[2020-08-05] MEDS: ELECTROLYTE (NON-ICU) PROTOCOL MC SCH (09:00)
[2020-08-05] MEDS: MORPHINE SULFATE 2 MG/ML VIAL. IV PRN ×3 (09:09→16:55)
[2020-08-05] MEDS: CLOPIDOGREL BISULFATE 75 MG TABLET PO SCH (09:27)
[2020-08-05] MEDS: ASPIRIN CHEWABLE 81 MG TABLET. PO SCH (09:27)
[2020-08-05] MEDS: CYCLOBENZAPRINE 10 MG TABLET. PO PRN ×2 (09:32→16:59)
[2020-08-05] MEDS: INSULIN GLARGINE SYRINGE. SQ SCH ×3 (09:37→20:32)
[2020-08-05] MEDS: INSULIN LISPRO 300 UNITS/3 ML VIAL. SQ SCH ×6 (09:38→18:29)
[2020-08-05 10:35] VITALS: BP 122/64
--- NOTE | 2020-08-05 11:48 | NUR ---
SS following up with discharge planning. SS reviewed pt chart and discussed with pt RN. Pt is currently on room air. Pt accepted at [facility], ; fax [phone], pending COVID19 result. SS will continue to follow for discharge planning.
--- NOTE | 2020-08-05 12:36 | PDOC ---
Provider Note Date of Service: DATE: 08/05/20 TIME: 12:29 Provider Note Provider Note Vascular S: Patient seen and examined in room with Dr. Alvarez. She reports mild pain to right leg incisions and to left heel. She has been up out of bed with PT. Her blood sugars remain elevated, in 200-300's. O: Awake and alert, in no apparent distress Vital signs stable, afebrile Right leg incisions clean, dry and intact, very minimal incisional erythema Right foot warm, calf is soft, no swelling. Good doppler signals dorsalis pedis and PT. Left heel with some dark discoloration and tenderness, beginning stages pressure sore. Monophasic DP and PT signals on the left A/P: Severe limb threatening right lower extremity pain Left heel pressure injury with PAD POD #2 Right femoral to popliteal bypass using greater saphenous vein. Doing well post operatively, continue pain control Elevated BG, per hospitalist Up ad fiona New pressure injury to left heel, she has SFA occlusion possible anterior tib stenosis/occlusion on the left. Would greatly benefit from intervention. Will arrange for early next week, likely Saturday for Dr. Long to do AARO with intervention to left leg. Strict heel offloading with offloading heel boot to left SS for discharge planning. Continue PT Justicifation of Admission Dx: Justifications for Admission: Justification of Admission Dx: Yes Cellulitis: Cellulitis IJEOMA SCHULZ Aug 05, 2020 12:36
--- NOTE | 2020-08-05 12:39 | PDOC ---
[employer] PROGRESS NOTE Date of Service DOS: DATE: 08/05/20 TIME: 12:35 Chief Complaint Chief Complaint Right femoral to below knee popliteal bypass with nonreversed great saphenous vein graft. 08/02 Diabetic foot infection, hx Left first toe osteomyelitis, status post left first toe amputation through the proximal phalanx with primary closure. 2018 prior amputation of the distal phalanx of the great t 06/2019 Findings compatible with significant greater than 50% stenosis at the right distal superficial femoral artery.Extensive bilateral peripheral artery disease. by arterial doppler Diabetes Tobacco abuse disorder morbid obesity hx diabetic neuropathy Continue IV and p.o. pain control Continue PT OT R ISS and Accu-Cheks Every 4 hour vascular checks Disposition: Acute rehab, pending approval and location History of Present Illness History of Present Illness 08/05/2020 No acute events overnight. Patient complains of right lower extremity pain after working physical therapy. Pain is usually 7 out of 10 on average. Patie nt has been accepted to [facility]. Vascular surgery will continue to observe in the hospital due to right heel wound in which they plan for angiogram next week sometime to reevaluate. 08/04/2020 No acute events overnight. Patient seen and examined bedside. Patient continues to have right lower extremity pain. Working with physical therapy. Patient's chart, labs, images were reviewed and discussed with RN 08/03/2020 No acute events overnight. Patient seen and examined bedside. Pain is just finished working with physical therapy and does complain of right lower extremity pain near incision sites. Patient's chart, labs, images were reviewed and discussed with RN Vitals/I&O Vitals/I&O: Vital Signs Date Time Temp Pulse Resp B/P (MAP) Pulse Ox O2 Delivery O2 Flow Rate FiO2 08/05/20 12:18 Room Air 08/05/20 10:35 97.8 90 18 122/64 (83) 100 97.8 I & O 08/04/20 08/04/20 08/05/20 14:59 22:59 06:59 Intake Total 500 ml 500 ml 0 ml Output Total 400 ml 1300 ml Balance 100 ml -800 ml 0 ml Physical Exam Physical Exam: GEN: No apparent distress. Alert and oriented HEENT: Normal cephalic, atraumatic, external auditory canals are patent NECK: Supple, no JVD, no thyromegaly was noted LUNGS: Bilateral clear HEART: RRR, S1, S2 present. Peripheral pulses intact, no obvious murmurs noted ABDOMEN: Soft, nontender. Positive bowel sounds, no organomegaly, normal bowel sounds EXTREMITIES: Right lower extremity dressings are clear dry and intact. Right heel eschar formation Labs Labs: Laboratory Tests Test 08/04/20 16:44 08/04/20 21:31 08/05/20 07:38 08/05/20 11:10 Glucose (Fingerstick) 251 mg/dL (70-99) 277 mg/dL (70-99) 246 mg/dL (70-99) 292 mg/dL (70-99) Comment Review of Relevant I have reviewed the following items filemon (where applicable) has been applied. Medications: Current Medications Medications (Trade) Dose Ordered Sig/Eun Route PRN Reason Start Time Stop Time Status Last Admin Dose Admin Oxycodone/ Acetaminophen (Percocet 10/325) 1 tab PRN Q4HRS PRN PO BREAKTHROUGH PAIN 08/04/20 13:30 08/05/20 09:49 Insulin Glargine (Lantus Syringe) 15 unit BID SQ 08/05/20 08:00 08/05/20 09:41 Justifications for Admission Other Justification JILLIAN GALLEGOS MD Aug 05, 2020 12:38
[2020-08-05 14:35] VITALS: BP 104/63
[2020-08-05 18:19] VITALS: BP 111/69
[2020-08-05] MEDS: DOCUSATE SODIUM 100 MG CAPSULE. PO SCH (20:31)
[2020-08-05 23:00] VITALS: BP 124/67
[2020-08-05] MEDS: oxyCODONE IR 5 MG TABLET PO PRN (23:38)
[2020-08-06 03:15] VITALS: BP 124/71
[2020-08-06] MEDS: oxyCODONE/APAP 10/325 1 TAB TABLET PO PRN ×3 (03:26→21:29)
[2020-08-06] MEDS: CYCLOBENZAPRINE 10 MG TABLET. PO PRN ×3 (05:57→21:28)
[2020-08-06 07:00] VITALS: BP 130/76
[2020-08-06] MEDS: CLOPIDOGREL BISULFATE 75 MG TABLET PO SCH (08:14)
[2020-08-06] MEDS: DOCUSATE SODIUM 100 MG CAPSULE. PO SCH ×2 (08:14→21:29)
[2020-08-06] MEDS: ASPIRIN CHEWABLE 81 MG TABLET. PO SCH (08:14)
[2020-08-06] MEDS: oxyCODONE IR 5 MG TABLET PO PRN ×2 (08:14→15:47)
[2020-08-06] MEDS: PANTOPRAZOLE 40 MG TABLET.DR. PO SCH (08:15)
[2020-08-06] MEDS: HEPARIN for SUB-Q USE 5,000 UNIT/ML VIAL. SQ SCH ×2 (08:24→21:38)
[2020-08-06] MEDS: INSULIN LISPRO 300 UNITS/3 ML VIAL. SQ SCH ×6 (08:25→17:47)
[2020-08-06] MEDS: ELECTROLYTE (NON-ICU) PROTOCOL MC SCH (09:00)
[2020-08-06] MEDS: INSULIN GLARGINE SYRINGE. SQ SCH ×2 (09:39→21:33)
[2020-08-06 11:01] VITALS: BP 123/77
--- NOTE | 2020-08-06 14:58 | PDOC ---
PROGRESS NOTES Date of Service: DATE: 08/06/20 TIME: 14:56 Chief Complaint Chief Complaint Right femoral to below knee popliteal bypass with nonreversed great saphenous vein graft. 08/02 Planned procedure for early next week for left peripheral arterial disease as per vascular internal controls consultant. We will confirm this Diabetic foot infection, hx Left first toe osteomyelitis, status post left first toe amputation through the proximal phalanx with primary closure. 2018 prior amputation of the distal phalanx of the great t 06/2019 Findings compatible with significant greater than 50% stenosis at the right distal superficial femoral artery.Extensive bilateral peripheral artery disease. by arterial doppler Diabetes Tobacco abuse disorder morbid obesity hx diabetic neuropathy Continue IV and p.o. pain control Continue PT OT R ISS and Accu-Cheks Every 4 hour vascular checks Disposition: Acute rehab, pending approval and location History of Present Illness History of Present Illness 08/03/2020 No acute events overnight. Patient seen and examined bedside. Pain is just finished working with physical therapy and does complain of right lower extremity pain near incision sites. Patient's chart, labs, images were reviewed and discussed with RN 08/04/2020 No acute events overnight. Patient seen and examined bedside. Patient continues to have right lower extremity pain. Working with physical therapy. Patient's chart, labs, images were reviewed and discussed with RN 08/05/2020 No acute events overnight. Patient complains of right lower extremity pain a fter working physical therapy. Pain is usually 7 out of 10 on average. Patient has been accepted to [facility]. Vascular surgery will continue to observe in the hospital due to right heel wound in which they plan for angiogram next week sometime to reevaluate. 08/06/2020 Patient lying in bed in no acute distress. She was able to stand up with the help of a walker and denies any pain. She seems to be in quite good spirits and just request if she could shower. We will discussed this with vascular internal controls consultant. No evidence of infection over the surgical site. Reassurance has been Vitals Vitals Vital Signs Date Time Temp Pulse Resp B/P (MAP) Pulse Ox O2 Delivery O2 Flow Rate FiO2 08/06/20 14:15 98 Room Air 8.0 08/06/20 11:01 97.9 77 20 123/77 (92) 97.9 Physical Exam Physical Exam GEN: No apparent distress. Alert and oriented HEENT: Normal cephalic, atraumatic, external auditory canals are patent NECK: Supple, no JVD, no thyromegaly was noted LUNGS: Bilateral clear HEART: RRR, S1, S2 present. Peripheral pulses intact, no obvious murmurs noted ABDOMEN: Soft, nontender. Positive bowel sounds, no organomegaly, normal bowel sounds EXTREMITIES: Right lower extremity dressings are clear dry and intact. Right heel eschar formation Labs LABS Laboratory Tests Test 08/05/20 16:34 08/05/20 20:25 08/06/20 07:29 08/06/20 11:55 Glucose (Fingerstick) 214 mg/dL (70-99) 259 mg/dL (70-99) 224 mg/dL (70-99) 181 mg/dL (70-99) Comment Review of Relevant I have reviewed the following items filemon (where applicable) has been applied. Labs Laboratory Tests Test 08/04/20 16:44 08/04/20 21:31 08/05/20 07:38 08/05/20 11:10 Glucose (Fingerstick) 251 mg/dL (70-99) 277 mg/dL (70-99) 246 mg/dL (70-99) 292 mg/dL (70-99) Test 08/05/20 16:34 08/05/20 20:25 08/06/20 07:29 08/06/20 11:55 Glucose (Fingerstick) 214 mg/dL (70-99) 259 mg/dL (70-99) 224 mg/dL (70-99) 181 mg/dL (70-99) Laboratory Tests Test 08/05/20 16:34 08/05/20 20:25 08/06/20 07:29 08/06/20 11:55 Glucose (Fingerstick) 214 mg/dL (70-99) 259 mg/dL (70-99) 224 mg/dL (70-99) 181 mg/dL (70-99) Medications Current Medications Heparin Sodium (Porcine) 5000 unit/Sodium Chloride 505 ml @ 505 mls/hr 1X ONCE IRR Last administered on 08/02/20at 08:10; Start 08/02/20 at 06:00; Stop 08/02/20 at 06:59; Status DC Cefazolin Sodium 1 gm/Sodium Chloride 500 ml @ 500 mls/hr 1X ONCE IRR Last administered on 08/02/20at 08:10; Start 08/02/20 at 06:00; Stop 08/02/20 at 06:59; Status DC Ondansetron HCl (Zofran) 4 mg PRN Q6HRS PRN IV NAUSEA/VOMITING Last administered on 08/02/20at 21:56; Start 08/02/20 at 07:00; Stop 08/03/20 at 06:59; Status DC Fentanyl Citrate (Fentanyl 2ml Vial) 25 mcg PRN Q5MIN PRN IV MILD PAIN 1-3; Start 08/02/20 at 07:00; Stop 08/03/20 at 06:59; Status DC Fentanyl Citrate (Fentanyl 2ml Vial) 50 mcg PRN Q5MIN PRN IV MODERATE TO SEVERE PAIN; Start 08/02/20 at 07:00; Stop 08/03/20 at 06:59; Status DC Morphine Sulfate (Morphine Sulfate) 1 mg PRN Q10MIN PRN IV SEVERE PAIN 7-10 Last administered on 08/02/20at 11:02; Start 08/02/20 at 07:00; Stop 08/03/20 at 06:59; Status DC Ringer's Solution 1,000 ml @ 30 mls/hr Q24H IV Last administered on 08/02/20at 07:03; Start 08/02/20 at 07:00; Stop 08/02/20 at 18:59; Status DC Hydromorphone HCl (Dilaudid) 0.5 mg PRN Q10MIN PRN IV SEV PAIN, Second choice Last administered on 08/02/20at 11:29; Start 08/02/20 at 07:00; Stop 08/03/20 at 06:59; Status DC Prochlorperazine Edisylate (Compazine) 5 mg PACU PRN PRN IV NAUSEA, MRX1; Start 08/02/20 at 07:00; Stop 08/03/20 at 06:59; Status DC Cefazolin Sodium/ Dextrose 50 ml @ 100 mls/hr 1X PREOP PRN IV PRIOR TO PROCEDURE Last administered on 08/02/20at 07:25; Start 08/02/20 at 06:00; Stop 08/02/20 at 18:00; Status DC Ondansetron HCl (Zofran) 4 mg STK-MED ONCE .ROUTE ; Start 08/02/20 at 06:35; Stop 08/02/20 at 06:36; Status DC Dexamethasone Sodium Phosphate (Decadron) 4 mg STK-MED ONCE .ROUTE ; Start 08/02/20 at 06:35; Stop 08/02/20 at 06:36; Status DC Lidocaine HCl (Lidocaine Pf 2% Vial) 5 ml STK-MED ONCE .ROUTE ; Start 08/02/20 at 06:36; Stop 08/02/20 at 06:36; Status DC Insulin Human Lispro (HumaLOG VIAL for OP,RR ONLY) 0-10 units PRN Q1HR PRN SQ PER PROTOCOL Last administered on 08/02/20at 11:00; Start 08/02/20 at 06:45; Stop 08/03/20 at 06:44; Status DC Rocuronium [place] (Zemuron) 50 mg STK-MED ONCE .ROUTE ; Start 08/02/20 at 0 7:05; Stop 08/02/20 at 07:05; Status DC Fentanyl Citrate (Fentanyl 2ml Vial) 100 mcg STK-MED ONCE .ROUTE ; Start 08/02/20 at 07:05; Stop 08/02/20 at 07:05; Status DC Midazolam HCl (Versed) 2 mg STK-MED ONCE .ROUTE ; Start 08/02/20 at 07:05; Stop 08/02/20 at 07:05; Status DC Gelatin (Gelfoam Size 100) 1 each STK-MED ONCE .ROUTE ; Start 08/02/20 at 07:12; Stop 08/02/20 at 07:12; Status DC Lidocaine HCl (Lidocaine 1% 20ml Vial) 20 ml STK-MED ONCE .ROUTE ; Start 08/02/20 at 07:12; Stop 08/02/20 at 07:12; Status DC Iohexol (Omnipaque 300 Mg/ml) 50 ml STK-MED ONCE .ROUTE ; Start 08/02/20 at 07:12; Stop 08/02/20 at 07:13; Status DC Cellulose (Surgicel Fibrillar 1x2) 1 each STK-MED ONCE .ROUTE Last administered on 08/02/20at 09:50; Start 08/02/20 at 07:12; Stop 08/02/20 at 07:13; Status DC Papaverine HCl 60 mg STK-MED ONCE .ROUTE ; Start 08/02/20 at 07:12; Stop 08/02/20 at 07:13; Status DC Bupivacaine HCl (Sensorcaine Mpf 0.5%) 30 ml STK-MED ONCE .ROUTE ; Start 08/02/20 at 07:12; Stop 08/02/20 at 07:13; Status DC Thrombin 20,000 unit STK-MED ONCE TP ; Start 08/02/20 at 07:13; Stop 08/02/20 at 07:13; Status DC Alteplase, Recombinant (Cathflo) 4 mg 1X ONCE INT CAT ; Start 08/02/20 at 07:30; Stop 08/02/20 at 07:31; Status Cancel Oxycodone HCl (Roxicodone) 5 mg PRN Q3HRS PRN PO PAIN Last administered on 08/06/20at 08:14; Start 08/02/20 at 07:30 Al Hydroxide/Mg Hydroxide (Mylanta Plus Xs) 30 ml PRN Q3HRS PRN PO HEARTBURN / GAS; Start 08/02/20 at 07:30 Calcium Carbonate/ Glycine (Tums) 500 mg PRN Q3HRS PRN PO INDIGESTION; Start 08/02/20 at 07:30 Diphenhydramine HCl (Benadryl) 25 mg PRN Q6HRS PRN PO ITCHING; Start 08/02/20 at 07:30 Diphenhydramine HCl (Benadryl) 25 mg PRN Q6HRS PRN IV ITCHING; Start 08/02/20 at 07:30 Zolpidem Tartrate (Ambien) 5 mg PRN QHS PRN PO INSOMNIA Last administered on 08/04/20at 21:41; Start 08/02/20 at 07:30 Info (Non-Icu Electrolyte Protocol) 1 ea DAILY MC Last administered on 08/03/20at 09:00; Start 08/03/20 at 09:00 Naloxone HCl (Narcan) 0.1 mg PRN Q2MIN PRN IV ADMIN; Start 08/02/20 at 07:30 Heparin Sodium (Porcine) (Heparin Sodium) 5,000 unit Q12HR SQ Last administered on 08/06/20at 08:24; Start 08/02/20 at 21:00 Sodium Chloride (Normal Saline Flush) 3 ml QSHIFT PRN IV AFTER MEDS AND BLOOD DRAWS; Start 08/02/20 at 07:30 Sodium Chloride 1,000 ml @ 75 mls/hr [id number] IV Last administered on 08/02/20at 20:38; Start 08/02/20 at 07:18; Stop 08/03/20 at 18:44; Status DC Oxycodone/ Acetaminophen (Percocet 5/325) 1 tab PRN Q4HRS PRN PO MILD PAIN, 1ST CHOICE; Start 08/02/20 at 07:30 Oxycodone/ Acetaminophen (Percocet 5/325) 2 tab PRN Q4HRS PRN PO MODERATE PAIN, SEVERE PAIN Last administered on 08/04/20at 09:40; Start 08/02/20 at 07:30 Morphine Sulfate (Morphine Sulfate) 2 mg PRN Q1HR PRN IV PAIN Last administered on 08/05/20at 16:55; Start 08/02/20 at 07:30 Naloxone HCl (Narcan) 0.4 mg PRN Q2MIN PRN IV SEE INSTRUCTIONS; Start 08/02/20 at 07:30 Sodium Chloride 1,000 ml @ 25 mls/hr Q24H IV Last administered on 08/02/20at 13:20; Start 08/02/20 at 07:18; Stop 08/03/20 at 07:31; Status DC Docusate Sodium (Colace) 100 mg BID PO Last administered on 08/06/20at 08:14; Start 08/02/20 at 21:00 Ondansetron HCl (Zofran) 4 mg PRN Q6HRS PRN IVP NAUESA, 1ST CHOICE Last administered on 08/03/20at 08:19; Start 08/02/20 at 07:30 Cefazolin Sodium (Ancef) 1 gm Q8H IVP Last administered on 08/03/20at 06:29; Start 08/02/20 at 15:00; Stop 08/03/20 at 07:01; Status DC Aspirin (Aspirin Chewable) 81 mg DAILY PO Last administered on 08/06/20at 08:14; Start 08/03/20 at 09:00 Clopidogrel Bisulfate (Plavix) 75 mg DAILY PO Last administered on 08/06/20at 08:14; Start 08/03/20 at 09:00 Cyclobenzaprine HCl (Flexeril) 10 mg PRN TID PRN PO MUSCLE SPASMS Last administered on 08/06/20at 12:25; Start 08/02/20 at 07:45 Gabapentin (Neurontin) 300 mg QHS PO Last administered on 08/04/20at 21:41; Start 08/02/20 at 21:00 Insulin Glargine (Lantus Syringe) 20 unit QHS SQ Last administered on 08/04/20at 21:39; Start 08/02/20 at 21:00; Stop 08/05/20 at 07:50; Status DC Insulin Human Lispro (HumaLOG) 10 units TIDWMEALS SQ Last administered on 08/06/20at 12:04; Start 08/02/20 at 17:00 Pantoprazole Sodium (Protonix) 40 mg DAILYAC PO Last administered on 08/06/20at 08:15; Start 08/03/20 at 07:30 Heparin Sodium (Porcine) (Heparin Sodium) 10,000 unit STK-MED ONCE .ROUTE ; Start 08/02/20 at 08:44; Stop 08/02/20 at 08:45; Status DC Fentanyl Citrate (Fentanyl 2ml Vial) 100 mcg STK-MED ONCE .ROUTE ; Start 08/02/20 at 09:02; Stop 08/02/20 at 09:03; Status DC Sevoflurane (Ultane) 90 ml STK-MED ONCE IH ; Start 08/02/20 at 09:33; Stop 08/02/20 at 09:33; Status DC Protamine Sulfate (Protamine) 50 mg STK-MED ONCE IV ; Start 08/02/20 at 09:52; Stop 08/02/20 at 09:52; Status DC Neostigmine [place] (Neostigmine Methylsulfate) 5 mg STK-MED ONCE .ROUTE ; Start 08/02/20 at 09:56; Stop 08/02/20 at 09:56; Status DC Glycopyrrolate (Robinul) 1 mg STK-MED ONCE .ROUTE ; Start 08/02/20 at 09:56; Stop 08/02/20 at 09:56; Status DC Morphine Sulfate (Morphine Sulfate) 2 mg STK-MED ONCE .ROUTE ; Start 08/02/20 at 10:52; Stop 08/02/20 at 10:52; Status DC Hydromorphone HCl (Dilaudid) 2 mg STK-MED ONCE .ROUTE ; Start 08/02/20 at 11:05; Stop 08/02/20 at 11:05; Status DC Insulin Human Lispro (HumaLOG) 0-7 UNITS TIDWMEALS SQ Last administered on 08/06/20at 12:04; Start 08/02/20 at 13:16 Dextrose (Dextrose 50%-Water Syringe) 12.5 gm PRN Q15MIN PRN IV SEE COMMENTS; Start 08/02/20 at 13:15 Influenza Virus Vaccine Quadrival (Fluzone Quad Syringe) 0.5 ml ONCE ONCE VAX IM Last administered on 08/03/20at 10:09; Start 08/03/20 at 09:00; Stop 08/03/20 at 09:01; Status DC Throat Lozenges (Cepacol Sore Throat Lozenge) 1 boby PRN Q2HRS PRN PO SORE THROAT Last administered on 08/04/20at 06:53; Start 08/04/20 at 06:15 Oxycodone/ Acetaminophen (Percocet 10/325) 1 tab PRN Q4HRS PRN PO BREAKTHROUGH PAIN Last administered on 08/06/20at 13:16; Start 08/04/20 at 13:30 Insulin Glargine (Lantus Syringe) 15 unit BID SQ Last administered on 08/06/20at 09:39; Start 08/05/20 at 08:00 Active Scripts Active Protonix (Pantoprazole Sodium) 20 Mg Tablet.dr 40 Mg PO DAILY 30 Days Reported Clopidogrel (Clopidogrel Bisulfate) 75 Mg Tablet 1 Tab PO DAILY has not startedit yet Children's Aspirin (Aspirin) 81 Mg Tab.chew 1 Tab PO DAILY 30 Days Meloxicam 15 Mg Tablet 1 Tab PO DAILY 30 Days Gabapentin (Gabapentin) 300 Mg Capsule 300 Mg PO QHS Humalog (Insulin Lispro) 100 Unit/1 Ml Cartridge 10 Unit SQ DAILYAC PRN add an extra unit for Bg >200 Lantus Solostar (Insulin Glargine,Hum.rec.anlog) 100 Unit/1 Ml Insuln.pen 20 Unit SQ QHS Cyclobenzaprine Hcl 10 Mg Tablet 1 Tab PO TID PRN Vitals/I & O Vital Sign - Last 24 Hours 08/05/20 08/05/20 08/05/20/25/20 16:55 17:25 18:19 19:13 Temp 98.6 98.6 Pulse 69 Resp 18 B/P (MAP) 111/69 (83) Pulse Ox 96 96 96 O2 Delivery Room Air Room Air Nasal Cannula Room Air O2 Flow Rate 8.0 08/05/20 08/05/20 08/05/20 08/05/20 20:31 21:39 23:00 23:38 Temp 98.6 98.6 Pulse 81 Resp 16 16 20 22 B/P (MAP) 124/67 (86) Pulse Ox 95 96 O2 Delivery Room Air Room Air Room Air 08/06/20 08/06/20 08/06/20 08/06/20 00:53 03:15 03:26 04:30 Temp 98.7 98.7 Pulse 78 Resp 20 20 18 18 B/P (MAP) 124/71 (88) Pulse Ox 96 94 96 96 O2 Delivery Room Air Room Air Room Air Room Air 08/06/20 08/06/20 08/06/20 08/06/20 07:00 08:14 08:20 09:15 Temp 97.9 97.9 Pulse 76 Resp 21 B/P (MAP) 130/76 (94) Pulse Ox 97 97 97 O2 Delivery Room Air Room Air Room Air Room Air 08/06/20 08/06/20 08/06/20 11:01 13:16 14:15 Temp 97.9 97.9 Pulse 77 Resp 20 B/P (MAP) 123/77 (92) Pulse Ox 98 98 98 O2 Delivery Room Air Room Air Room Air O2 Flow Rate 8.0 Intake and Output 08/05/20 08/05/20 08/06/20 15:00 23:00 07:00 Intake Total 1100 ml 450 ml 880 ml Output Total 300 ml Balance 800 ml 450 ml 880 ml Justicifation of Admission Dx: Justifications for Admission: Justification of Admission Dx: Yes Cellulitis: Cellulitis TRICE BROOKS MD Aug 06, 2020 14:57
[2020-08-06 15:00] VITALS: BP 124/77
--- NOTE | 2020-08-06 15:43 | PDOC ---
PROGRESS NOTES Date of Service DATE: 08/06/20 TIME: 15:38 Subjective Subjective She had some anterior and lateral right thigh pain today that has subsequently resolved. She has some persistent left heel pain. Denies any right foot or lower leg pain. Objective Objective Vital Signs Date Time Temp Pulse Resp B/P (MAP) Pulse Ox O2 Delivery O2 Flow Rate FiO2 08/06/20 15:00 97.8 85 20 124/77 (93) 95 Room Air 97.8 08/06/20 14:15 8.0 Intake and Output 08/06/20 07:00 Intake Total 2430 ml Output Total 300 ml Balance 2130 ml Intake Oral 2430 ml Output Urine Total 300 ml # Voids 4 Physical Exam Abdomen: Soft, No tenderness Heart: Regular rate Extremities: Other (Right leg incisions intact, no erythema, good bypass pulse, strong right DP pulse. Discoloration of left heel consistent with pressure injury.) General: Alert, No acute distress Lungs: Normal air movement Assessment Assessment 1) Peripheral artery disease 2) s/p right femoral-popliteal bypass 3) DM 4) Peripheral neuropathy Plan Plan of Care She may continue activity as tolerated. Keep left heel protected with elevation off of bed and prevalon boot for heel off loading. 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 She may be amenable to percutaneous intervention for left SFA occlusion. Plan for left leg angiogram on Saturday by Dr. Long. Comment Review of Relevant I have reviewed the following items filemon (where applicable) has been applied. Labs Laboratory Tests Test 08/04/20 16:44 08/04/20 21:31 08/05/20 07:38 08/05/20 11:10 Glucose (Fingerstick) 251 mg/dL (70-99) 277 mg/dL (70-99) 246 mg/dL (70-99) 292 mg/dL (70-99) Test 08/05/20 16:34 08/05/20 20:25 08/06/20 07:29 08/06/20 11:55 Glucose (Fingerstick) 214 mg/dL (70-99) 259 mg/dL (70-99) 224 mg/dL (70-99) 181 mg/dL (70-99) Laboratory Tests Test 08/05/20 16:34 08/05/20 20:25 08/06/20 07:29 08/06/20 11:55 Glucose (Fingerstick) 214 mg/dL (70-99) 259 mg/dL (70-99) 224 mg/dL (70-99) 181 mg/dL (70-99) Medications Current Medications Heparin Sodium (Porcine) 5000 unit/Sodium Chloride 505 ml @ 505 mls/hr 1X ONCE IRR Last administered on 08/02/20at 08:10; Start 08/02/20 at 06:00; Stop at 06:59; Status DC Cefazolin Sodium 1 gm/Sodium Chloride 500 ml @ 500 mls/hr 1X ONCE IRR Last administered on 08/02/20at 08:10; Start 08/02/20 at 06:00; Stop 08/02/20 at 06:59; Status DC Ondansetron HCl (Zofran) 4 mg PRN Q6HRS PRN IV NAUSEA/VOMITING Last administered on 08/02/20at 21:56; Start 08/02/20 at 07:00; Stop 08/03/20 at 06:59; Status DC Fentanyl Citrate (Fentanyl 2ml Vial) 25 mcg PRN Q5MIN PRN IV MILD PAIN 1-3; Start 08/02/20 at 07:00; Stop 08/03/20 at 06:59; Status DC Fentanyl Citrate (Fentanyl 2ml Vial) 50 mcg PRN Q5MIN PRN IV MODERATE TO SEVERE PAIN; Start 08/02/20 at 07:00; Stop 08/03/20 at 06:59; Status DC Morphine Sulfate (Morphine Sulfate) 1 mg PRN Q10MIN PRN IV SEVERE PAIN 7-10 Last administered on 08/02/20at 11:02; Start 08/02/20 at 07:00; Stop 08/03/20 at 06:59; Status DC Ringer's Solution 1,000 ml @ 30 mls/hr Q24H IV Last administered on 08/02/20at 07:03; Start 08/02/20 at 07:00; Stop 08/02/20 at 18:59; Status DC Hydromorphone HCl (Dilaudid) 0.5 mg PRN Q10MIN PRN IV SEV PAIN, Second choice Last administered on 08/02/20at 11:29; Start 08/02/20 at 07:00; Stop 08/03/20 at 06:59; Status DC Prochlorperazine Edisylate (Compazine) 5 mg PACU PRN PRN IV NAUSEA, MRX1; Start 08/02/20 at 07:00; Stop 08/03/20 at 06:59; Status DC Cefazolin Sodium/ Dextrose 50 ml @ 100 mls/hr 1X PREOP PRN IV PRIOR TO PROCEDURE Last administered on 08/02/20at 07:25; Start 08/02/20 at 06:00; Stop 08/02/20 at 18:00; Status DC Ondansetron HCl (Zofran) 4 mg STK-MED ONCE .ROUTE ; Start 08/02/20 at 06:35; St op 08/02/20 at 06:36; Status DC Dexamethasone Sodium Phosphate (Decadron) 4 mg STK-MED ONCE .ROUTE ; Start 08/02/20 at 06:35; Stop 08/02/20 at 06:36; Status DC Lidocaine HCl (Lidocaine Pf 2% Vial) 5 ml STK-MED ONCE .ROUTE ; Start 08/02/20 at 06:36; Stop 08/02/20 at 06:36; Status DC Insulin Human Lispro (HumaLOG VIAL for OP,RR ONLY) 0-10 units PRN Q1HR PRN SQ PER PROTOCOL Last administered on 08/02/20at 11:00; Start 08/02/20 at 06:45; Stop 08/03/20 at 06:44; Status DC Rocuronium [place] (Zemuron) 50 mg STK-MED ONCE .ROUTE ; Start 08/02/20 at 07:05; Stop 08/02/20 at 07:05; Status DC Fentanyl Citrate (Fentanyl 2ml Vial) 100 mcg STK-MED ONCE .ROUTE ; Start 08/02/20 at 07:05; Stop 08/02/20 at 07:05; Status DC Midazolam HCl (Versed) 2 mg STK-MED ONCE .ROUTE ; Start 08/02/20 at 07:05; Stop 08/02/20 at 07:05; Status DC Gelatin (Gelfoam Size 100) 1 each STK-MED ONCE .ROUTE ; Start 08/02/20 at 07:12; Stop 08/02/20 at 07:12; Status DC Lidocaine HCl (Lidocaine 1% 20ml Vial) 20 ml STK-MED ONCE .ROUTE ; Start 08/02 at 07:12; Stop 08/02/20 at 07:12; Status DC Iohexol (Omnipaque 300 Mg/ml) 50 ml STK-MED ONCE .ROUTE ; Start 08/02/20 at 07: 12; Stop 08/02/20 at 07:13; Status DC Cellulose (Surgicel Fibrillar 1x2) 1 each STK-MED ONCE .ROUTE Last administered on 08/02/20at 09:50; Start 08/02/20 at 07:12; Stop 08/02/20 at 07:13; Status DC Papaverine HCl 60 mg STK-MED ONCE .ROUTE ; Start 08/02/20 at 07:12; Stop 08/02/20 at 07:13; Status DC Bupivacaine HCl (Sensorcaine Mpf 0.5%) 30 ml STK-MED ONCE .ROUTE ; Start 08/02/20 at 07:12; Stop 08/02/20 at 07:13; Status DC Thrombin 20,000 unit STK-MED ONCE TP ; Start 08/02/20 at 07:13; Stop 08/02/20 at 07:13; Status DC Alteplase, Recombinant (Cathflo) 4 mg 1X ONCE INT CAT ; Start 08/02/20 at 07:30; Stop 08/02/20 at 07:31; Status Cancel Oxycodone HCl (Roxicodone) 5 mg PRN Q3HRS PRN PO PAIN Last administered on 08/06/20at 08:14; Start 08/02/20 at 07:30 Al Hydroxide/Mg Hydroxide (Mylanta Plus Xs) 30 ml PRN Q3HRS PRN PO HEARTBURN / GAS; Start 08/02/20 at 07:30 Calcium Carbonate/ Glycine (Tums) 500 mg PRN Q3HRS PRN PO INDIGESTION; Start 08/02/20 at 07:30 Diphenhydramine HCl (Benadryl) 25 mg PRN Q6HRS PRN PO ITCHING; Start 08/02/20 at 07:30 Diphenhydramine HCl (Benadryl) 25 mg PRN Q6HRS PRN IV ITCHING; Start 08/02/20 at 07:30 Zolpidem Tartrate (Ambien) 5 mg PRN QHS PRN PO INSOMNIA Last administered on 08/04/20at 21:41; Start 08/02/20 at 07:30 Info (Non-Icu Electrolyte Protocol) 1 ea DAILY MC Last administered on 08/03/20at 09:00; Start 08/03/20 at 09:00 Naloxone HCl (Narcan) 0.1 mg PRN Q2MIN PRN IV ADMIN; Start 08/02/20 at 07:30 Heparin Sodium (Porcine) (Heparin Sodium) 5,000 unit Q12HR SQ Last administered on 08/06/20at 08:24; Start 08/02/20 at 21:00 Sodium Chloride (Normal Saline Flush) 3 ml QSHIFT PRN IV AFTER MEDS AND BLOOD DRAWS; Start 08/02/20 at 07:30 Sodium Chloride 1,000 ml @ 75 mls/hr [id number] IV Last administered on 08/02/20at 20:38; Start 08/02/20 at 07:18; Stop 08/03/20 at 18:44; Status DC Oxycodone/ Acetaminophen (Percocet 5/325) 1 tab PRN Q4HRS PRN PO MILD PAIN, 1ST CHOICE; Start 08/02/20 at 07:30 Oxycodone/ Acetaminophen (Percocet 5/325) 2 tab PRN Q4HRS PRN PO MODERATE PAIN, SEVERE PAIN Last administered on 08/04/20at 09:40; Start 08/02/20 at 07:30 Morphine Sulfate (Morphine Sulfate) 2 mg PRN Q1HR PRN IV PAIN Last administered on 08/05/20at 16:55; Start 08/02/20 at 07:30 Naloxone HCl (Narcan) 0.4 mg PRN Q2MIN PRN IV SEE INSTRUCTIONS; Start 08/02/20 at 07:30 Sodium Chloride 1,000 ml @ 25 mls/hr Q24H IV Last administered on 08/02/20at 13:20; Start 08/02/20 at 07:18; Stop 08/03/20 at 07:31; Status DC Docusate Sodium (Colace) 100 mg BID PO Last administered on 08/06/20at 08:14; Start 08/02/20 at 21:00 Ondansetron HCl (Zofran) 4 mg PRN Q6HRS PRN IVP NAUESA, 1ST CHOICE Last administered on 08/03/20at 08:19; Start 08/02/20 at 07:30 Cefazolin Sodium (Ancef) 1 gm Q8H IVP Last administered on 08/03/20at 06:29; Start 08/02/20 at 15:00; Stop 08/03/20 at 07:01; Status DC Aspirin (Aspirin Chewable) 81 mg DAILY PO Last administered on 08/06/20at 08:14; Start 08/03/20 at 09:00 Clopidogrel Bisulfate (Plavix) 75 mg DAILY PO Last administered on 08/06/20at 08:14; Start 08/03/20 at 09:00 Cyclobenzaprine HCl (Flexeril) 10 mg PRN TID PRN PO MUSCLE SPASMS Last administered on 08/06/20at 12:25; Start 08/02/20 at 07:45 Gabapentin (Neurontin) 300 mg QHS PO Last administered on 08/04/20at 21:41; Start 08/02/20 at 21:00 Insulin Glargine (Lantus Syringe) 20 unit QHS SQ Last administered on 08/04/20at 21:39; Start 08/02/20 at 21:00; Stop 08/05/20 at 07:50; Status DC Insulin Human Lispro (HumaLOG) 10 units TIDWMEALS SQ Last administered on 08/06/20at 12:04; Start 08/02/20 at 17:00 Pantoprazole Sodium (Protonix) 40 mg DAILYAC PO Last administered on 08/06/20at 08:15; Start 08/03/20 at 07:30 Heparin Sodium (Porcine) (Heparin Sodium) 10,000 unit STK-MED ONCE .ROUTE ; Start 08/02/20 at 08:44; Stop 08/02/20 at 08:45; Status DC Fentanyl Citrate (Fentanyl 2ml Vial) 100 mcg STK-MED ONCE .ROUTE ; Start 08/02/20 at 09:02; Stop 08/02/20 at 09:03; Status DC Sevoflurane (Ultane) 90 ml STK-MED ONCE IH ; Start 08/02/20 at 09:33; Stop 08/02/20 at 09:33; Status DC Protamine Sulfate (Protamine) 50 mg STK-MED ONCE IV ; Start 08/02/20 at 09:52; Stop 08/02/20 at 09:52; Status DC Neostigmine [place] (Neostigmine Methylsulfate) 5 mg STK-MED ONCE .ROUTE ; Start 08/02/20 at 09:56; Stop 08/02/20 at 09:56; Status DC Glycopyrrolate (Robinul) 1 mg STK-MED ONCE .ROUTE ; Start 08/02/20 at 09:56; St op 08/02/20 at 09:56; Status DC Morphine Sulfate (Morphine Sulfate) 2 mg STK-MED ONCE .ROUTE ; Start 08/02/20 at 10:52; Stop 08/02/20 at 10:52; Status DC Hydromorphone HCl (Dilaudid) 2 mg STK-MED ONCE .ROUTE ; Start 08/02/20 at 11:05; Stop 08/02/20 at 11:05; Status DC Insulin Human Lispro (HumaLOG) 0-7 UNITS TIDWMEALS SQ Last administered on 08/06/20at 12:04; Start 08/02/20 at 13:16 Dextrose (Dextrose 50%-Water Syringe) 12.5 gm PRN Q15MIN PRN IV SEE COMMENTS; Start 08/02/20 at 13:15 Influenza Virus Vaccine Quadrival (Fluzone Quad Syringe) 0.5 ml ONCE ONCE VAX IM Last administered on 08/03/20at 10:09; Start 08/03/20 at 09:00; Stop 08/03/20 at 09:01; Status DC Throat Lozenges (Cepacol Sore Throat Lozenge) 1 boby PRN Q2HRS PRN PO SORE THROAT Last administered on 08/04/20at 06:53; Start 08/04/20 at 06:15 Oxycodone/ Acetaminophen (Percocet 10/325) 1 tab PRN Q4HRS PRN PO BREAKTHROUGH PAIN Last administered on 08/06/20at 13:16; Start 08/04/20 at 13:30 Insulin Glargine (Lantus Syringe) 15 unit BID SQ Last administered on 08/06/20at 09:39; Start 08/05/20 at 08:00 Active Scripts Active Protonix (Pantoprazole Sodium) 20 Mg Tablet.dr 40 Mg PO DAILY 30 Days Reported Clopidogrel (Clopidogrel Bisulfate) 75 Mg Tablet 1 Tab PO DAILY has not startedit yet Children's Aspirin (Aspirin) 81 Mg Tab.chew 1 Tab PO DAILY 30 Days Meloxicam 15 Mg Tablet 1 Tab PO DAILY 30 Days Gabapentin (Gabapentin) 300 Mg Capsule 300 Mg PO QHS Humalog (Insulin Lispro) 100 Unit/1 Ml Cartridge 10 Unit SQ DAILYAC PRN add an extra unit for Bg >200 Lantus Solostar (Insulin Glargine,Hum.rec.anlog) 100 Unit/1 Ml Insuln.pen 20 Unit SQ QHS Cyclobenzaprine Hcl 10 Mg Tablet 1 Tab PO TID PRN Vitals/I & O Vital Sign - Last 24 Hours 08/05/20 08/05/20 08/05/20 08/05/20 16:55 17:25 18:19 19:13 Temp 98.6 98.6 Pulse 69 Resp 18 B/P (MAP) 111/69 (83) Pulse Ox 96 96 96 O2 Delivery Room Air Room Air Nasal Cannula Room Air O2 Flow Rate 8.0 08/05/20 08/05/20 08/05/20 08/05/20 20:31 21:39 23:00 23:38 Temp 98.6 98.6 Pulse 81 Resp 16 16 20 22 B/P (MAP) 124/67 (86) Pulse Ox 95 96 O2 Delivery Room Air Room Air Room Air 08/06/20 08/06/20 08/06/20 08/06/20 00:53 03:15 03:26 04:30 Temp 98.7 98.7 Pulse 78 Resp 20 20 18 18 B/P (MAP) 124/71 (88) Pulse Ox 96 94 96 96 O2 Delivery Room Air Room Air Room Air Room Air 08/06/20 08/06/20 08/06/20 08/06/20 07:00 08:14 08:20 09:15 Temp 97.9 97.9 Pulse 76 Resp 21 B/P (MAP) 130/76 (94) Pulse Ox 97 97 97 O2 Delivery Room Air Room Air Room Air Room Air 08/06/20 08/06/20 08/06/20 08/06/20 11:01 13:16 14:15 15:00 Temp 97.9 97.8 97.9 97.8 Pulse 77 85 Resp 20 20 B/P (MAP) 123/77 (92) 124/77 (93) Pulse Ox 98 98 98 95 O2 Delivery Room Air Room Air Room Air Room Air O2 Flow Rate 8.0 Intake and Output 08/05/20 08/05/20 08/06/20 15:00 23:00 07:00 Intake Total 1100 ml 450 ml 880 ml Output Total 300 ml Balance 800 ml 450 ml 880 ml Justifications for Admission Other Justification STEF GOMEZ MD Aug 06, 2020 15:43
[2020-08-06] MEDS ORDERED: IV NORMAL SALINE 250ML 250 ML IV ONE (18:00)
[2020-08-06 20:13] VITALS: BP 122/76
[2020-08-06] MEDS: GABAPENTIN 300 MG CAPSULE. PO SCH (21:29)
[2020-08-06] MEDS: diphenhydrAMINE HCL 25 MG CAPSULE PO PRN (22:05)
[2020-08-06 23:46] VITALS: BP 137/66
[2020-08-07] MEDS: oxyCODONE IR 5 MG TABLET PO PRN ×2 (01:00→17:38)
[2020-08-07 03:50] VITALS: BP 126/75
[2020-08-07] MEDS: CYCLOBENZAPRINE 10 MG TABLET. PO PRN ×3 (06:20→20:32)
[2020-08-07] MEDS: oxyCODONE/APAP 10/325 1 TAB TABLET PO PRN ×2 (06:21→11:37)
[2020-08-07 07:00] VITALS: BP 117/69
[2020-08-07] MEDS: DOCUSATE SODIUM 100 MG CAPSULE. PO SCH ×2 (08:18→20:31)
[2020-08-07] MEDS: CLOPIDOGREL BISULFATE 75 MG TABLET PO SCH (08:18)
[2020-08-07] MEDS: ASPIRIN CHEWABLE 81 MG TABLET. PO SCH (08:18)
[2020-08-07] MEDS: PANTOPRAZOLE 40 MG TABLET.DR. PO SCH (08:18)
[2020-08-07] MEDS: INSULIN LISPRO 300 UNITS/3 ML VIAL. SQ SCH ×5 (08:24→17:41)
[2020-08-07] MEDS: HEPARIN for SUB-Q USE 5,000 UNIT/ML VIAL. SQ SCH ×2 (08:24→20:38)
[2020-08-07] MEDS: ELECTROLYTE (NON-ICU) PROTOCOL MC SCH (09:00)
[2020-08-07] MEDS: INSULIN GLARGINE SYRINGE. SQ SCH ×3 (09:08→20:37)
[2020-08-07 11:00] VITALS: BP 120/70
[2020-08-07 15:00] VITALS: BP 102/61
--- NOTE | 2020-08-07 16:11 | PDOC ---
GENERAL General: Patient examined chart reviewed today is hospital day 6 for this patient with s marilyn peripheral arterial disease, uncontrolled diabetes diagnosed 15 years ago in poor control for most of that time, chronic tobacco use, admitted for worsening leg pain. Team health was consulted to assist with medical management while she is in the hospital. She is postop day 6 from a right femoral popliteal bypass that went well. She has persistent hyperglycemia despite con trolled diet and routine dosing of insulin. We will move her Lantus to dosing only at bedtime and I have increased that to 40 units tonight at bedtime. She did already have a dose of 15 units of Lantus this morning thus we will hold her standing dose of lispro with her dinner tonight. She will need to continue her sliding scale. We can continue her mealtime short acting insulin tomorrow. It sounds like plan is for angiogram with intervention for her left femoral artery disease on Saturday. Patient is in good spirits today and has no new complaints. She is a little frustrated by her situation and seems motivated to work hard on her healthy preventive behaviors. She will need close outpatient follow-up with primary care and probably endocrinology to maximize her outcomes. I have an A1c and lipids planned for the morning. Diabetes education would probably be helpful as well in the morning along with potentially a nutrition consult. Time spent today is 30 minutes with greater than 50% in counseling and coordination of care most of which in discussion with patient. Problems: (1) Diabetes mellitus type 2 with peripheral artery disease (2) Peripheral artery disease VITAL SIGNS Vital Signs/I&O: Vital Signs Date Time Temp Pulse Resp B/P (MAP) Pulse Ox O2 Delivery O2 Flow Rate FiO2 08/07/20 15:00 98.3 79 22 102/61 (75) 95 Room Air 98.3 08/06/20 14:15 8.0 I & O 08/06/20 08/06/20 08/07/20 15:00 23:00 07:00 Intake Total 650 ml 680 ml 0 ml Balance 650 ml 680 ml 0 ml Patient is in good spirits this afternoon resting comfortably in bed she is alert and oriented x3 in no acute distress HEENT exam is unremarkable Chest is clear to auscultation Heart S1-S2 normal regular rate and rhythm no murmurs or gallops are noted Abdomen soft nontender nondistended no masses organomegaly noted Extremity exam is unremarkable for acute abnormality. Her right lower extremity is in a [place] boot tonight. ALLERGIES Allergies: Allergies Coded Allergies Type Severity Reaction Last Updated Verified No Known Drug Allergies 06/14/19 No MEDS Medications: Current Medications Medications (Trade) Dose Ordered Sig/Eun Start Time Stop Time Status Last Admin Dose Admin Al Hydroxide/Mg Hydroxide (Mylanta Plus Xs) 30 ml PRN Q3HRS PRN 08/02/20 07:30 Alteplase, Recombinant (Cathflo) 4 mg 1X ONCE 08/02/20 07:30 08/02/20 07:31 Cancel Aspirin (Aspirin Chewable) 81 mg DAILY 08/03/20 09:00 08/07/20 08:18 Bupivacaine HCl (Sensorcaine Mpf 0.5%) 30 ml STK-MED ONCE 08/02/20 07:12 08/02/20 07:13 DC Calcium Carbonate/ Glycine (Tums) 500 mg PRN Q3HRS PRN 08/02/20 07:30 Cefazolin Sodium (Ancef) 1 gm Q8H 08/02/20 15:00 08/03/20 07:01 DC 08/03/20 06:29 Cefazolin Sodium 1 gm/Sodium Chloride 500 ml @ 500 mls/hr 1X ONCE 08/02/20 06:00 08/02/20 06:59 DC 08/02/20 08:10 Cefazolin Sodium/ Dextrose 50 ml @ 100 mls/hr 1X PREOP PRN 08/02/20 06:00 08/02/20 18:00 DC 08/02/20 07:25 Cellulose (Surgicel Fibrillar 1x2) 1 each STK-MED ONCE 08/02/20 07:12 08/02/20 07:13 DC 08/02/20 09:50 Clopidogrel Bisulfate (Plavix) 75 mg DAILY 08/03/20 09:00 08/07/20 08:18 Cyclobenzaprine HCl (Flexeril) 10 mg PRN TID PRN 08/02/20 07:45 08/07/20 14:03 Dexamethasone Sodium Phosphate (Decadron) 4 mg STK-MED ONCE 08/02/20 06:35 08/02/20 06:36 DC Dextrose (Dextrose 50%-Water Syringe) 12.5 gm PRN Q15MIN PRN 08/02/20 13:15 Diphenhydramine HCl (Benadryl) 25 mg PRN Q6HRS PRN 08/02/20 07:30 Docusate Sodium (Colace) 100 mg BID 08/02/20 21:00 08/07/20 08:18 Fentanyl Citrate (Fentanyl 2ml Vial) 100 mcg STK-MED ONCE 08/02/20 09:02 08/02/20 09:03 DC Gabapentin (Neurontin) 300 mg QHS 08/02/20 21:00 08/06/20 21:29 Gelatin (Gelfoam Size 100) 1 each STK-MED ONCE 08/02/20 07:12 08/02/20 07:12 DC Glycopyrrolate (Robinul) 1 mg STK-MED ONCE 08/02/20 09:56 08/02/20 09:56 DC Heparin Sodium (Porcine) (Heparin Sodium) 10,000 unit STK-MED ONCE 08/02/20 08:44 08/02/20 08:45 DC Heparin Sodium (Porcine) 5000 unit/Sodium Chloride 505 ml @ 505 mls/hr 1X ONCE 08/02/20 06:00 08/02/20 06:59 DC 08/02/20 08:10 Hydromorphone HCl (Dilaudid) 2 mg STK-MED ONCE 08/02/20 11:05 08/02/20 11:05 DC Influenza Virus Vaccine Quadrival (Fluzone Quad Syringe) 0.5 ml ONCE ONCE 08/03/20 09:00 08/03/20 09:01 DC 08/03/20 10:09 Info (Non-Icu Electrolyte Protocol) 1 ea DAILY 08/03/20 09:00 08/03/20 09:00 Insulin Glargine (Lantus Syringe) 40 unit QHS 08/07/20 15:00 Insulin Human Lispro (HumaLOG VIAL for OP,RR ONLY) 0-10 units PRN Q1HR PRN 08/02/20 06:45 08/03/20 06:44 DC 08/02/20 11:00 Insulin Human Lispro (HumaLOG) 0-7 UNITS TIDWMEALS 08/02/20 13:16 08/07/20 11:59 Iohexol (Omnipaque 300 Mg/ml) 50 ml STK-MED ONCE 08/02/20 07:12 08/02/20 07:13 DC Lidocaine HCl (Lidocaine 1% 20ml Vial) 20 ml STK-MED ONCE 08/02/20 07:12 08/02/20 07:12 DC Lidocaine HCl (Lidocaine Pf 2% Vial) 5 ml STK-MED ONCE 08/02/20 06:36 08/02/20 06:36 DC Midazolam HCl (Versed) 2 mg STK-MED ONCE 08/02/20 07:05 08/02/20 07:05 DC Morphine Sulfate (Morphine Sulfate) 2 mg STK-MED ONCE 08/02/20 10:52 08/02/20 10:52 DC Naloxone HCl (Narcan) 0.4 mg PRN Q2MIN PRN 08/02/20 07:30 Neostigmine [place] (Neostigmine Methylsulfate) 5 mg STK-MED ONCE 08/02/20 09:56 08/02/20 09:56 DC Ondansetron HCl (Zofran) 4 mg PRN Q6HRS PRN 08/02/20 07:30 08/03/20 08:19 Oxycodone HCl (Roxicodone) 5 mg PRN Q3HRS PRN 08/02/20 07:30 08/07/20 01:00 Oxycodone/ Acetaminophen (Percocet 10/325) 1 tab PRN Q4HRS PRN 08/04/20 13:30 08/07/20 11:37 Oxycodone/ Acetaminophen (Percocet 5/325) 2 tab PRN Q4HRS PRN 08/02/20 07:30 08/04/20 09:40 Pantoprazole Sodium (Protonix) 40 mg DAILYAC 08/03/20 07:30 08/07/20 08:18 Papaverine HCl 60 mg STK-MED ONCE 08/02/20 07:12 08/02/20 07:13 DC Prochlorperazine Edisylate (Compazine) 5 mg PACU PRN PRN 08/02/20 07:00 08/03/20 06:59 DC Protamine Sulfate (Protamine) 50 mg STK-MED ONCE 08/02/20 09:52 08/02/20 09:52 DC Ringer's Solution 1,000 ml @ 30 mls/hr Q24H 08/02/20 07:00 08/02/20 18:59 DC 08/02/20 07:03 Rocuronium [place] (Zemuron) 50 mg STK-MED ONCE 08/02/20 07:05 08/02/20 07:05 DC Sevoflurane (Ultane) 90 ml STK-MED ONCE 08/02/20 09:33 08/02/20 09:33 DC Sodium Chloride 250 ml @ 250 mls/hr 1X ONCE 08/06/20 18:00 08/06/20 18:59 UNV Sodium Chloride (Normal Saline Flush) 3 ml QSHIFT PRN 08/02/20 07:30 Throat Lozenges (Cepacol Sore Throat Lozenge) 1 boby PRN Q2HRS PRN 08/04/20 06:15 08/04/20 06:53 Thrombin 20,000 unit STK-MED ONCE 08/02/20 07:13 08/02/20 07:13 DC Zolpidem Tartrate (Ambien) 5 mg PRN QHS PRN 08/02/20 07:30 08/04/20 21:41 LAB Lab: Laboratory Tests Test 08/06/20 17:10 08/06/20 21:37 08/07/20 07:29 08/07/20 11:47 Glucose (Fingerstick) 205 mg/dL (70-99) H 177 mg/dL (70-99) H 226 mg/dL (70-99) H 255 mg/dL (70-99) H ASSESSMENT & PLAN A&P Plan as noted above This note was created using [employer] and may have omissions and/or errors due to the nature of real-time voice entertainment & media correspondent. Justifications for Admission Other Justification HERMINIA CHARLTON MD Aug 07, 2020 16:11
--- NOTE | 2020-08-07 19:05 | NUR ---
Assessment completed vss poc explained pt denied pain at this time call light in reach will resume care.
[2020-08-07] MEDS: GABAPENTIN 300 MG CAPSULE. PO SCH (20:32)
[2020-08-07] MEDS: oxyCODONE/APAP 5/325 1 TAB TABLET PO PRN (20:33)
[2020-08-07 22:49] VITALS: BP 152/75
[2020-08-08] VITALS (7 sets, daily range): BP systolic 117–151; BP diastolic 67–109
[2020-08-08] MEDS: oxyCODONE IR 5 MG TABLET PO PRN ×2 (03:05→20:45)
[2020-08-08 05:00] LABS: BASO % 1 % (0-3); EOS # 0.1 x10^3/uL (0.0-0.7); EOS % 2 % (0-3); HEMATOCRIT 34.2 % (36.0-47.0); HEMOGLOBIN 11.5 g/dL (12.0-15.5); LYMPH # 2.3 x10^3/uL (1.0-4.8); LYMPH % 37 % (24-48); MEAN CORPUSCULAR HEMOGLOBIN 30 pg (25-35); MEAN CORPUSCULAR HGB CONC 34 g/dL (31-37); MEAN CORPUSCULAR VOLUME 88 fL (79-100); MONO # 0.5 x10^3/uL (0.0-1.1); MONO % 7 % (0-9); NEUT # 3.3 x10^3/uL (1.8-7.7); NEUT % 53 % (31-73); PLATELET COUNT 277 x10^3/uL (140-400); WHITE BLOOD COUNT 6.3 x10^3/uL (4.0-11.0)
[2020-08-08] MEDS: PANTOPRAZOLE 40 MG TABLET.DR. PO SCH (05:35)
[2020-08-08 05:44] LABS: ALBUMIN 2.3 g/dL (3.4-5.0); ALBUMIN/GLOBULIN RATIO 0.6 (1.0-1.7); ALK PHOS 58 U/L (46-116); ALT (SGPT) 31 U/L (14-59); ANION GAP 7 (6-14); AST (SGOT) 19 U/L (15-37); CALCIUM 8.9 mg/dL (8.5-10.1); CARBON DIOXIDE 29 mmol/L (21-32); CHLORIDE 103 mmol/L (98-107); CHOLESTEROL 181 mg/dL (0-200); CREATININE 0.5 mg/dL (0.6-1.0); GLUCOSE 251 mg/dL (70-99); HDLC 22 mg/dL (40-60); SODIUM 139 mmol/L (136-145); TOTAL BILIRUBIN 0.2 mg/dL (0.2-1.0); TOTAL PROTEIN 6.4 g/dL (6.4-8.2); TRIGLYCERIDES 585 mg/dL (0-150); VLDLC 117 mg/dL (0-40)
[2020-08-08 05:51] LABS: BLOOD UREA NITROGEN 12 mg/dL (7-20); BUN/CREATININE RATIO 24 (6-20)
[2020-08-08 05:54] LABS: CHOLESTEROL/HDL RATIO 8.2
--- NOTE | 2020-08-08 07:43 | PDOC ---
PROGRESS NOTES Date of Service DATE: 08/08/20 TIME: 07:33 Subjective Subjective She is without new complaints. Left heel pain improved. Objective Objective Vital Signs Date Time Temp Pulse Resp B/P (MAP) Pulse Ox O2 Delivery O2 Flow Rate FiO2 08/08/20 04:01 18 96 Room Air 08/08/20 02:57 97.5 77 151/86 (107) 97.5 08/06/20 14:15 8.0 Intake and Output 08/08/20 07:00 Intake Total 1175 ml Balance 1175 ml Intake Oral 1175 ml # Voids 7 Physical Exam Abdomen: Soft, No tenderness, Other Heart: Regular rate Extremities: Other (Right leg incisions intact, no erythema, good bypass pulses. Left heel discoloration improved) General: Alert, No acute distress Lungs: Normal air movement Neck: Supple Assessment Assessment 1) PVD s/p right femoral-popliteal bypass 2) Poorly controlled DM 3) Hyperlipidemia (Triglyceride >500) 4) Htn Plan Plan of Care She is without new complaints. Increase activity as tolerated. Will add gemfibrozil to assist with Triglyceride control. Tentatively plan left leg angiogram and possible intervention with Dr. Long tomorrow. Will repeat labs in AM. Comment Review of Relevant I have reviewed the following items filemon (where applicable) has been applied. Labs Laboratory Tests Test 08/06/20 11:55 08/06/20 17:10 08/06/20 21:37 08/07/20 07:29 Glucose (Fingerstick) 181 mg/dL (70-99) 205 mg/dL (70-99) 177 mg/dL (70-99) 226 mg/dL (70-99) Test 08/07/20 11:47 08/07/20 16:53 08/07/20 20:31 08/08/20 04:05 Glucose (Fingerstick) 255 mg/dL (70-99) 322 mg/dL (70-99) 336 mg/dL (70-99) White Blood Count 6.3 x10^3/uL (4.0-11.0) Red Blood Count 3.90 x10^6/uL (3.50-5.40) Hemoglobin 11.5 g/dL (12.0-15.5) Hematocrit 34.2 % (36.0-47.0) Mean Corpuscular Volume 88 fL (79-100) Mean Corpuscular Hemoglobin 30 pg (25-35) Mean Corpuscular Hemoglobin Concent 34 g/dL (31-37) Red Cell Distribution Width 13.0 % (11.5-14.5) Platelet Count 277 x10^3/uL (140-400) Neutrophils (%) (Auto) 53 % (31-73) Lymphocytes (%) (Auto) 37 % (24-48) Monocytes (%) (Auto) 7 % (0-9) Eosinophils (%) (Auto) 2 % (0-3) Basophils (%) (Auto) 1 % (0-3) Neutrophils # (Auto) 3.3 x10^3/uL (1.8-7.7) Lymphocytes # (Auto) 2.3 x10^3/uL (1.0-4.8) Monocytes # (Auto) 0.5 x10^3/uL (0.0-1.1) Eosinophils # (Auto) 0.1 x10^3/uL (0.0-0.7) Basophils # (Auto) 0.0 x10^3/uL (0.0-0.2) Test 08/08/20 04:08 Sodium Level 139 mmol/L (136-145) Potassium Level 4.0 mmol/L (3.5-5.1) Chloride Level 103 mmol/L (98-107) Carbon Dioxide Level 29 mmol/L (21-32) Anion Gap 7 (6-14) Blood Urea Nitrogen 12 mg/dL (7-20) Creatinine 0.5 mg/dL (0.6-1.0) Estimated GFR (Cockcroft-Gault) 134.0 BUN/Creatinine Ratio 24 (6-20) Glucose Level 251 mg/dL (70-99) Calcium Level 8.9 mg/dL (8.5-10.1) Total Bilirubin 0.2 mg/dL (0.2-1.0) Aspartate Amino Transf (AST/SGOT) 19 U/L (15-37) Alanine Aminotransferase (ALT/SGPT) 31 U/L (14-59) Alkaline Phosphatase 58 U/L (46-116) Total Protein 6.4 g/dL (6.4-8.2) Albumin 2.3 g/dL (3.4-5.0) Albumin/Globulin Ratio 0.6 (1.0-1.7) Triglycerides Level 585 mg/dL (0-150) Cholesterol Level 181 mg/dL (0-200) LDL Cholesterol, Calculated mg/dL (0-100) VLDL Cholesterol, Calculated 117 mg/dL (0-40) Non-HDL Cholesterol Calculated 159 mg/dL (0-129) HDL Cholesterol 22 mg/dL (40-60) Cholesterol/HDL Ratio 8.2 Laboratory Tests Test 08/07/20 11:47 08/07/20 16:53 08/07/20 20:31 08/08/20 04:05 Glucose (Fingerstick) 255 mg/dL (70-99) 322 mg/dL (70-99) 336 mg/dL (70-99) White Blood Count 6.3 x10^3/uL (4.0-11.0) Red Blood Count 3.90 x10^6/uL (3.50-5.40) Hemoglobin 11.5 g/dL (12.0-15.5) Hematocrit 34.2 % (36.0-47.0) Mean Corpuscular Volume 88 fL (79-100) Mean Corpuscular Hemoglobin 30 pg (25-35) Mean Corpuscular Hemoglobin Concent 34 g/dL (31-37) Red Cell Distribution Width 13.0 % (11.5-14.5) Platelet Count 277 x10^3/uL (140-400) Neutrophils (%) (Auto) 53 % (31-73) Lymphocytes (%) (Auto) 37 % (24-48) Monocytes (%) (Auto) 7 % (0-9) Eosinophils (%) (Auto) 2 % (0-3) Basophils (%) (Auto) 1 % (0-3) Neutrophils # (Auto) 3.3 x10^3/uL (1.8-7.7) Lymphocytes # (Auto) 2.3 x10^3/uL (1.0-4.8) Monocytes # (Auto) 0.5 x10^3/uL (0.0-1.1) Eosinophils # (Auto) 0.1 x10^3/uL (0.0-0.7) Basophils # (Auto) 0.0 x10^3/uL (0.0-0.2) Test 08/08/20 04:08 Sodium Level 139 mmol/L (136-145) Potassium Level 4.0 mmol/L (3.5-5.1) Chloride Level 103 mmol/L (98-107) Carbon Dioxide Level 29 mmol/L (21-32) Anion Gap 7 (6-14) Blood Urea Nitrogen 12 mg/dL (7-20) Creatinine 0.5 mg/dL (0.6-1.0) Estimated GFR (Cockcroft-Gault) 134.0 BUN/Creatinine Ratio 24 (6-20) Glucose Level 251 mg/dL (70-99) Calcium Level 8.9 mg/dL (8.5-10.1) Total Bilirubin 0.2 mg/dL (0.2-1.0) Aspartate Amino Transf (AST/SGOT) 19 U/L (15-37) Alanine Aminotransferase (ALT/SGPT) 31 U/L (14-59) Alkaline Phosphatase 58 U/L (46-116) Total Protein 6.4 g/dL (6.4-8.2) Albumin 2.3 g/dL (3.4-5.0) Albumin/Globulin Ratio 0.6 (1.0-1.7) Triglycerides Level 585 mg/dL (0-150) Cholesterol Level 181 mg/dL (0-200) LDL Cholesterol, Calculated mg/dL (0-100) VLDL Cholesterol, Calculated 117 mg/dL (0-40) Non-HDL Cholesterol Calculated 159 mg/dL (0-129) HDL Cholesterol 22 mg/dL (40-60) Cholesterol/HDL Ratio 8.2 Medications Current Medications Heparin Sodium (Porcine) 5000 unit/Sodium Chloride 505 ml @ 505 mls/hr 1X ONCE IRR Last administered on 08/02/20at 08:10; Start 08/02/20 at 06:00; Stop 08/02/20 at 06:59; Status DC Cefazolin Sodium 1 gm/Sodium Chloride 500 ml @ 500 mls/hr 1X ONCE IRR Last administered on 08/02/20at 08:10; Start 08/02/20 at 06:00; Stop 08/02/20 at 06:59; Status DC Ondansetron HCl (Zofran) 4 mg PRN Q6HRS PRN IV NAUSEA/VOMITING Last administered on 08/02/20at 21:56; Start 08/02/20 at 07:00; Stop 08/03/20 at 06:59; Status DC Fentanyl Citrate (Fentanyl 2ml Vial) 25 mcg PRN Q5MIN PRN IV MILD PAIN 1-3; Start 08/02/20 at 07:00; Stop 08/03/20 at 06:59; Status DC Fentanyl Citrate (Fentanyl 2ml Vial) 50 mcg PRN Q5MIN PRN IV MODERATE TO SEVERE PAIN; Start 08/02/20 at 07:00; Stop 08/03/20 at 06:59; Status DC Morphine Sulfate (Morphine Sulfate) 1 mg PRN Q10MIN PRN IV SEVERE PAIN 7-10 Last administered on 08/02/20at 11:02; Start 08/02/20 at 07:00; Stop 08/03/20 at 06:59; Status DC Ringer's Solution 1,000 ml @ 30 mls/hr Q24H IV Last administered on 08/02/20at 07:03; Start 08/02/20 at 07:00; Stop 08/02/20 at 18:59; Status DC Hydromorphone HCl (Dilaudid) 0.5 mg PRN Q10MIN PRN IV SEV PAIN, Second choice Last administered on 08/02/20at 11:29; Start 08/02/20 at 07:00; Stop 08/03/20 at 06:59; Status DC Prochlorperazine Edisylate (Compazine) 5 mg PACU PRN PRN IV NAUSEA, MRX1; Start 08/02/20 at 07:00; Stop 08/03/20 at 06:59; Status DC Cefazolin Sodium/ Dextrose 50 ml @ 100 mls/hr 1X PREOP PRN IV PRIOR TO PROCEDURE Last administered on 08/02/20at 07:25; Start 08/02/20 at 06:00; Stop 08/02/20 at 18:00; Status DC Ondansetron HCl (Zofran) 4 mg STK-MED ONCE .ROUTE ; Start 08/02/20 at 06:35; Stop 08/02/20 at 06:36; Status DC Dexamethasone Sodium Phosphate (Decadron) 4 mg STK-MED ONCE .ROUTE ; Start 08/02/20 at 06:35; Stop 08/02/20 at 06:36; Status DC Lidocaine HCl (Lidocaine Pf 2% Vial) 5 ml STK-MED ONCE .ROUTE ; Start 08/02/20 at 06:36; Stop 08/02/20 at 06:36; Status DC Insulin Human Lispro (HumaLOG VIAL for OP,RR ONLY) 0-10 units PRN Q1HR PRN SQ PER PROTOCOL Last administered on 08/02/20at 11:00; Start 08/02/20 at 06:45; Stop 08/03/20 at 06:44; Status DC Rocuronium Damascus (Zemuron) 50 mg STK-MED ONCE .ROUTE ; Start 08/02/20 at 0 7:05; Stop 08/02/20 at 07:05; Status DC Fentanyl Citrate (Fentanyl 2ml Vial) 100 mcg STK-MED ONCE .ROUTE ; Start 08/02/20 at 07:05; Stop 08/02/20 at 07:05; Status DC Midazolam HCl (Versed) 2 mg STK-MED ONCE .ROUTE ; Start 08/02/20 at 07:05; Stop 08/02/20 at 07:05; Status DC Gelatin (Gelfoam Size 100) 1 each STK-MED ONCE .ROUTE ; Start 08/02/20 at 07:12; Stop 08/02/20 at 07:12; Status DC Lidocaine HCl (Lidocaine 1% 20ml Vial) 20 ml STK-MED ONCE .ROUTE ; Start 08/02/20 at 07:12; Stop 08/02/20 at 07:12; Status DC Iohexol (Omnipaque 300 Mg/ml) 50 ml STK-MED ONCE .ROUTE ; Start 08/02/20 at 07:12; Stop 08/02/20 at 07:13; Status DC Cellulose (Surgicel Fibrillar 1x2) 1 each STK-MED ONCE .ROUTE Last administered on 08/02/20at 09:50; Start 08/02/20 at 07:12; Stop 08/02/20 at 07:13; Status DC Papaverine HCl 60 mg STK-MED ONCE .ROUTE ; Start 08/02/20 at 07:12; Stop 08/02/20 at 07:13; Status DC Bupivacaine HCl (Sensorcaine Mpf 0.5%) 30 ml STK-MED ONCE .ROUTE ; Start 08/02/20 at 07:12; Stop 08/02/20 at 07:13; Status DC Thrombin 20,000 unit STK-MED ONCE TP ; Start 08/02/20 at 07:13; Stop 08/02/20 at 07:13; Status DC Alteplase, Recombinant (Cathflo) 4 mg 1X ONCE INT CAT ; Start 08/02/20 at 07:30; Stop 08/02/20 at 07:31; Status Cancel Oxycodone HCl (Roxicodone) 5 mg PRN Q3HRS PRN PO PAIN Last administered on 08/08/20at 03:05; Start 08/02/20 at 07:30 Al Hydroxide/Mg Hydroxide (Mylanta Plus Xs) 30 ml PRN Q3HRS PRN PO HEARTBURN / GAS; Start 08/02/20 at 07:30 Calcium Carbonate/ Glycine (Tums) 500 mg PRN Q3HRS PRN PO INDIGESTION; Start 08/02/20 at 07:30 Diphenhydramine HCl (Benadryl) 25 mg PRN Q6HRS PRN PO ITCHING Last administered on 08/06/20at 22:05; Start 08/02/20 at 07:30 Diphenhydramine HCl (Benadryl) 25 mg PRN Q6HRS PRN IV ITCHING; Start 08/02/20 at 07:30 Zolpidem Tartrate (Ambien) 5 mg PRN QHS PRN PO INSOMNIA Last administered on 08/04/20at 21:41; Start 08/02/20 at 07:30 Info (Non-Icu Electrolyte Protocol) 1 ea DAILY MC Last administered on 08/03/20at 09:00; Start 08/03/20 at 09:00 Naloxone HCl (Narcan) 0.1 mg PRN Q2MIN PRN IV ADMIN; Start 08/02/20 at 07:30 Heparin Sodium (Porcine) (Heparin Sodium) 5,000 unit Q12HR SQ Last administered on 08/07/20at 20:38; Start 08/02/20 at 21:00 Sodium Chloride (Normal Saline Flush) 3 ml QSHIFT PRN IV AFTER MEDS AND BLOOD DRAWS; Start 08/02/20 at 07:30 Sodium Chloride 1,000 ml @ 75 mls/hr [id number] IV Last administered on 08/02/20at 20:38; Start 08/02/20 at 07:18; Stop 08/03/20 at 18:44; Status DC Oxycodone/ Acetaminophen (Percocet 5/325) 1 tab PRN Q4HRS PRN PO MILD PAIN, 1ST CHOICE; Start 08/02/20 at 07:30 Oxycodone/ Acetaminophen (Percocet 5/325) 2 tab PRN Q4HRS PRN PO MODERATE PAIN, SEVERE PAIN Last administered on 08/07/20at 20:33; Start 08/02/20 at 07:30 Morphine Sulfate (Morphine Sulfate) 2 mg PRN Q1HR PRN IV PAIN Last administered on 08/05/20at 16:55; Start 08/02/20 at 07:30 Naloxone HCl (Narcan) 0.4 mg PRN Q2MIN PRN IV SEE INSTRUCTIONS; Start 08/02/20 at 07:30 Sodium Chloride 1,000 ml @ 25 mls/hr Q24H IV Last administered on 08/02/20at 13:20; Start 08/02/20 at 07:18; Stop 08/03/20 at 07:31; Status DC Docusate Sodium (Colace) 100 mg BID PO Last administered on 08/07/20at 20:31; Start 08/02/20 at 21:00 Ondansetron HCl (Zofran) 4 mg PRN Q6HRS PRN IVP NAUESA, 1ST CHOICE Last administered on 08/03/20at 08:19; Start 08/02/20 at 07:30 Cefazolin Sodium (Ancef) 1 gm Q8H IVP Last administered on 08/03/20at 06:29; Start 08/02/20 at 15:00; Stop 08/03/20 at 07:01; Status DC Aspirin (Aspirin Chewable) 81 mg DAILY PO Last administered on 08/07/20at 08:18; Start 08/03/20 at 09:00 Clopidogrel Bisulfate (Plavix) 75 mg DAILY PO Last administered on 08/07/20 08:18; Start 08/03/20 at 09:00 Cyclobenzaprine HCl (Flexeril) 10 mg PRN TID PRN PO MUSCLE SPASMS Last administered on 08/07/20at 20:32; Start 08/02/20 at 07:45 Gabapentin (Neurontin) 300 mg QHS PO Last administered on 08/07/20at 20:32; Start 08/02/20 at 21:00 Insulin Glargine (Lantus Syringe) 20 unit QHS SQ Last administered on 08/04/20at 21:39; Start 08/02/20 at 21:00; Stop 08/05/20 at 07:50; Status DC Insulin Human Lispro (HumaLOG) 10 units TIDWMEALS SQ Last administered on 08/07/20at 11:59; Start 08/02/20 at 17:00; Stop 08/07/20 at 15:34; Status DC Pantoprazole Sodium (Protonix) 40 mg DAILYAC PO Last administered on 08/08/20at 05:35; Start 08/03/20 at 07:30 Heparin Sodium (Porcine) (Heparin Sodium) 10,000 unit STK-MED ONCE .ROUTE ; Start 08/02/20 at 08:44; Stop 08/02/20 at 08:45; Status DC Fentanyl Citrate (Fentanyl 2ml Vial) 100 mcg STK-MED ONCE .ROUTE ; Start 08/02/20 at 09:02; Stop 08/02/20 at 09:03; Status DC Sevoflurane (Ultane) 90 ml STK-MED ONCE IH ; Start 08/02/20 at 09:33; Stop 08/02/20 at 09:33; Status DC Protamine Sulfate (Protamine) 50 mg STK-MED ONCE IV ; Start 08/02/20 at 09:52; Stop 08/02/20 at 09:52; Status DC Neostigmine Damascus (Neostigmine Methylsulfate) 5 mg STK-MED ONCE .ROUTE ; Start 08/02/20 at 09:56; Stop 08/02/20 at 09:56; Status DC Glycopyrrolate (Robinul) 1 mg STK-MED ONCE .ROUTE ; Start 08/02/20 at 09:56; Stop 08/02/20 at 09:56; Status DC Morphine Sulfate (Morphine Sulfate) 2 mg STK-MED ONCE .ROUTE ; Start 08/02/20 at 10:52; Stop 08/02/20 at 10:52; Status DC Hydromorphone HCl (Dilaudid) 2 mg STK-MED ONCE .ROUTE ; Start 08/02/20 at 11:05; Stop 08/02/20 at 11:05; Status DC Insulin Human Lispro (HumaLOG) 0-7 UNITS TIDWMEALS SQ Last administered on 07/13 05/30at 17:41; Start 08/02/20 at 13:16 Dextrose (Dextrose 50%-Water Syringe) 12.5 gm PRN Q15MIN PRN IV SEE COMMENTS; Start 08/02/20 at 13:15 Influenza Virus Vaccine Quadrival (Fluzone Quad Syringe) 0.5 ml ONCE ONCE VAX IM Last administered on 08/03/20at 10:09; Start 08/03/20 at 09:00; Stop 08/03/20 at 09:01; Status DC Throat Lozenges (Cepacol Sore Throat Lozenge) 1 boby PRN Q2HRS PRN PO SORE THROAT Last administered on 08/04/20at 06:53; Start 08/04/20 at 06:15 Oxycodone/ Acetaminophen (Percocet 10/325) 1 tab PRN Q4HRS PRN PO BREAKTHROUGH PAIN Last administered on 08/07/20at 11:37; Start 08/04/20 at 13:30 Insulin Glargine (Lantus Syringe) 15 unit BID SQ Last administered on 08/07/20at 09:08; Start 08/05/20 at 08:00; Stop 08/07/20 at 14:48; Status DC Sodium Chloride 250 ml @ 250 mls/hr 1X ONCE IV ; Start 08/06/20 at 18:00; Stop 08/06/20 at 18:59; Status UNV Insulin Glargine (Lantus Syringe) 40 unit QHS SQ Last administered on 08/07/20at 20:37; Start 08/07/20 at 15:00 Gemfibrozil (Lopid) 600 mg BIDBFRMEAL PO ; Start 08/08/20 at 07:30 Active Scripts Active Protonix (Pantoprazole Sodium) 20 Mg Tablet.dr 40 Mg PO DAILY 30 Days Reported Clopidogrel (Clopidogrel Bisulfate) 75 Mg Tablet 1 Tab PO DAILY has not startedit yet Children's Aspirin (Aspirin) 81 Mg Tab.chew 1 Tab PO DAILY 30 Days Meloxicam 15 Mg Tablet 1 Tab PO DAILY 30 Days Gabapentin (Gabapentin) 300 Mg Capsule 300 Mg PO QHS Humalog (Insulin Lispro) 100 Unit/1 Ml Cartridge 10 Unit SQ DAILYAC PRN add an extra unit for Bg >200 Lantus Solostar (Insulin Glargine,Hum.rec.anlog) 100 Unit/1 Ml Insuln.pen 20 Un it SQ QHS Cyclobenzaprine Hcl 10 Mg Tablet 1 Tab PO TID PRN Vitals/I & O Vital Sign - Last 24 Hours 08/07/20 08/07/20 08/07/20 08/07/20 08:20 11:00 11:37 12:35 Temp 98.2 98.2 Pulse 80 Resp 20 B/P (MAP) 120/70 (87) Pulse Ox 97 97 97 O2 Delivery Room Air Room Air Room Air Room Air 08/07/20 08/07/20 08/07/20 08/07/20 15:00 17:38 18:38 19:05 Temp 98.3 98.3 Pulse 79 Resp 22 B/P (MAP) 102/61 (75) Pulse Ox 95 95 95 O2 Delivery Room Air Room Air Room Air Room Air 08/07/20 08/07/20 08/07/20 08/07/20 19:09 20:33 21:33 22:49 Temp 98.5 98.1 98.5 98.1 Pulse 79 75 Resp 18 18 18 B/P (MAP) 152/75 (100) Pulse Ox 93 96 96 96 O2 Delivery Room Air Room Air Room Air Room Air 08/08/20 08/08/20 08/08/20 02:57 03:05 04:01 Temp 97.5 97.5 Pulse 77 Resp 18 18 18 B/P (MAP) 151/86 (107) Pulse Ox 96 96 96 O2 Delivery Room Air Room Air Room Air Intake and Output 08/07/20 08/07/20 08/08/20 15:00 23:00 07:00 Intake Total 650 ml 325 ml 200 ml Balance 650 ml 325 ml 200 ml Justifications for Admission Other Justification STEF GOMEZ MD Aug 08, 2020 07:43
[2020-08-08] MEDS: GEMFIBROZIL 600 MG TABLET. PO SCH ×2 (08:36→15:31)
[2020-08-08] MEDS: CLOPIDOGREL BISULFATE 75 MG TABLET PO SCH (08:36)
[2020-08-08] MEDS: ASPIRIN CHEWABLE 81 MG TABLET. PO SCH (08:36)
[2020-08-08] MEDS: DOCUSATE SODIUM 100 MG CAPSULE. PO SCH ×2 (08:36→20:45)
[2020-08-08] MEDS: CYCLOBENZAPRINE 10 MG TABLET. PO PRN ×2 (08:42→20:45)
[2020-08-08] MEDS: HEPARIN for SUB-Q USE 5,000 UNIT/ML VIAL. SQ SCH ×2 (08:51→20:51)
[2020-08-08] MEDS: INSULIN LISPRO 300 UNITS/3 ML VIAL. SQ SCH ×5 (08:52→17:43)
[2020-08-08] MEDS: ELECTROLYTE (NON-ICU) PROTOCOL MC SCH (09:00)
[2020-08-08] MEDS: oxyCODONE/APAP 10/325 1 TAB TABLET PO PRN ×2 (10:38→15:32)
--- NOTE | 2020-08-08 13:19 | PDOC ---
[employer] PROGRESS NOTE Date of Service DOS: DATE: 08/08/20 TIME: 13:13 Chief Complaint Chief Complaint PVD Right femoral to popliteal great saphenous bypass hx left great toe osteomyelitis pressure ulcer, left heal DM Hx diabetic neuropathy HTN Dyslipidemia History of Present Illness History of Present Illness 08/08/2020 Pt seen and examined. Discussed case with RN and CM. Possible AFRO/ intervention with Dr. Long tomorrow for PVD of left lower extremity. 08/03/2020 No acute events overnight. Patient seen and examined bedside. Pain is just finished working with physical therapy and does complain of right lower extremity pain near incision sites. Patient's chart, labs, images were reviewed and discussed with RN 08/04/2020 No acute events overnight. Patient seen and examined bedside. Patient continues to have right lower extremity pain. Working with physical therapy. Patient's chart, labs, images were reviewed and discussed with RN 08/05/2020 No acute events overnight. Patient complains of right lower extremity pain after working physical therapy. Pain is usually 7 out of 10 on average. Patient has been accepted to [facility]. Vascular surgery will continue to observe in the hospital due to right heel wound in which they plan for angiogram next week sometime to reevaluate. 08/06/2020 Patient lying in bed in no acute distress. She was able to stand up with the help of a walker and denies any pain. She seems to be in quite good spirits and just request if she could shower. We will discussed this with vascular as400 consultant. No evidence of infection over the surgical site. Reassurance has been Vitals/I&O Vitals/I&O: Vital Signs Date Time Temp Pulse Resp B/P (MAP) Pulse Ox O2 Delivery O2 Flow Rate FiO2 08/08/20 12:14 98.4 74 16 133/82 (99) 95 Room Air 98.4 I & O 08/07/20 08/07/20 08/08/20 15:00 23:00 07:00 Intake Total 650 ml 325 ml 200 ml Balance 650 ml 325 ml 200 ml Physical Exam General: Alert, Oriented X3, Cooperative, No acute distress Heart: Regular rate, Normal S1, Normal S2 Lungs: Clear Abdomen: Soft, No tenderness, Other Extremities: Other (left great toe amputation) Skin: Other (Right leg incisions intact, no erythema, good bypass pulses. Pressure ulcer noted to left heel.) Labs Labs: Laboratory Tests Test 08/07/20 16:53 08/07/20 20:31 08/08/20 04:05 08/08/20 04:08 Glucose (Fingerstick) 322 mg/dL (70-99) 336 mg/dL (70-99) White Blood Count 6.3 x10^3/uL (4.0-11.0) Red Blood Count 3.90 x10^6/uL (3.50-5.40) Hemoglobin 11.5 g/dL (12.0-15.5) Hematocrit 34.2 % (36.0-47.0) Mean Corpuscular Volume 88 fL (79-100) Mean Corpuscular Hemoglobin 30 pg (25-35) Mean Corpuscular Hemoglobin Concent 34 g/dL (31-37) Red Cell Distribution Width 13.0 % (11.5-14.5) Platelet Count 277 x10^3/uL (140-400) Neutrophils (%) (Auto) 53 % (31-73) Lymphocytes (%) (Auto) 37 % (24-48) Monocytes (%) (Auto) 7 % (0-9) Eosinophils (%) (Auto) 2 % (0-3) Basophils (%) (Auto) 1 % (0-3) Neutrophils # (Auto) 3.3 x10^3/uL (1.8-7.7) Lymphocytes # (Auto) 2.3 x10^3/uL (1.0-4.8) Monocytes # (Auto) 0.5 x10^3/uL (0.0-1.1) Eosinophils # (Auto) 0.1 x10^3/uL (0.0-0.7) Basophils # (Auto) 0.0 x10^3/uL (0.0-0.2) Sodium Level 139 mmol/L (136-145) Potassium Level 4.0 mmol/L (3.5-5.1) Chloride Level 103 mmol/L (98-107) Carbon Dioxide Level 29 mmol/L (21-32) Anion Gap 7 (6-14) Blood Urea Nitrogen 12 mg/dL (7-20) Creatinine 0.5 mg/dL (0.6-1.0) Estimated GFR (Cockcroft-Gault) 134.0 BUN/Creatinine Ratio 24 (6-20) Glucose Level 251 mg/dL (70-99) Calcium Level 8.9 mg/dL (8.5-10.1) Total Bilirubin 0.2 mg/dL (0.2-1.0) Aspartate Amino Transf (AST/SGOT) 19 U/L (15-37) Alanine Aminotransferase (ALT/SGPT) 31 U/L (14-59) Alkaline Phosphatase 58 U/L (46-116) Total Protein 6.4 g/dL (6.4-8.2) Albumin 2.3 g/dL (3.4-5.0) Albumin/Globulin Ratio 0.6 (1.0-1.7) Triglycerides Level 585 mg/dL (0-150) Cholesterol Level 181 mg/dL (0-200) LDL Cholesterol, Calculated mg/dL (0-100) VLDL Cholesterol, Calculated 117 mg/dL (0-40) Non-HDL Cholesterol Calculated 159 mg/dL (0-129) HDL Cholesterol 22 mg/dL (40-60) Cholesterol/HDL Ratio 8.2 Test 08/08/20 07:56 08/08/20 11:54 Glucose (Fingerstick) 229 mg/dL (70-99) 294 mg/dL (70-99) Review of Systems Review of Systems: No fever. No chest pain. 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 Will follow Comment Review of Relevant I have reviewed the following items filemon (where applicable) has been applied. Medications: Current Medications Medications (Trade) Dose Ordered Sig/Eun Route PRN Reason Start Time Stop Time Status Last Admin Dose Admin Insulin Glargine (Lantus Syringe) 40 unit QHS SQ 08/07/20 15:00 08/07/20 20:37 Gemfibrozil (Lopid) 600 mg BIDBFRMEAL PO 08/08/20 07:30 08/08/20 08:36 Insulin Human Lispro (HumaLOG) 10 units TIDWMEALS SQ 08/08/20 12:00 08/08/20 12:35 Justifications for Admission Other Justification ANNE MARIE BACON III DO Aug 08, 2020 13:19
--- NOTE | 2020-08-08 13:33 | NUR ---
SS following up with discharge planning. SS reviewed pt chart and discussed with pt RN. Pt is currently on room air. COVID19 negative. Pt accepted at [facility], ; fax [phone]. Per vascular, possible left leg angiogram and possible intervention with Dr. Logn tomorrow, 08/09/2020. SS will continue to follow for discharge planning.
--- NOTE | 2020-08-08 19:10 | NUR ---
Pt with c/o pain will medicate pt, assessment completed vss will resume care and continue to monitor pt.
[2020-08-08] MEDS: GABAPENTIN 300 MG CAPSULE. PO SCH (20:45)
[2020-08-08] MEDS: INSULIN GLARGINE SYRINGE. SQ SCH (20:50)
[2020-08-08] MEDS: diphenhydrAMINE HCL 25 MG CAPSULE PO PRN (22:57)
[2020-08-08] MEDS: ZOLPIDEM 5 MG TABLET. PO PRN (22:57)
[2020-08-09] VITALS (14 sets, daily range): BP systolic 107–168; BP diastolic 60–89
[2020-08-09] MEDS: INSULIN LISPRO 300 UNITS/3 ML VIAL. SQ SCH ×6 (08:00→17:44)
[2020-08-09 08:22] LABS: BASO # 0.1 x10^3/uL (0.0-0.2); BASO % 1 % (0-3); EOS # 0.1 x10^3/uL (0.0-0.7); EOS % 2 % (0-3); HEMATOCRIT 38.1 % (36.0-47.0); LYMPH # 2.1 x10^3/uL (1.0-4.8); LYMPH % 34 % (24-48); MEAN CORPUSCULAR HEMOGLOBIN 30 pg (25-35); MEAN CORPUSCULAR HGB CONC 34 g/dL (31-37); MEAN CORPUSCULAR VOLUME 88 fL (79-100); MONO # 0.4 x10^3/uL (0.0-1.1); MONO % 7 % (0-9); NEUT # 3.5 x10^3/uL (1.8-7.7); NEUT % 56 % (31-73); PLATELET COUNT 315 x10^3/uL (140-400); RED BLOOD COUNT 4.34 x10^6/uL (3.50-5.40); WHITE BLOOD COUNT 6.3 x10^3/uL (4.0-11.0)
[2020-08-09 08:36] LABS: CALCIUM 9.4 mg/dL (8.5-10.1); CREATININE 0.5 mg/dL (0.6-1.0); POTASSIUM 4.6 mmol/L (3.5-5.1)
[2020-08-09] MEDS: HEPARIN for SUB-Q USE 5,000 UNIT/ML VIAL. SQ SCH ×2 (09:00→21:45)
[2020-08-09] MEDS: ELECTROLYTE (NON-ICU) PROTOCOL MC SCH (09:00)
[2020-08-09] MEDS: oxyCODONE/APAP 10/325 1 TAB TABLET PO PRN ×2 (11:03→14:17)
[2020-08-09] MEDS ORDERED: LIDOCAINE 1% Multi-Dose 20 ML VIAL. ONE (11:32)
[2020-08-09] MEDS ORDERED: IODIXANOL 320 MG/ML 100 ML VIAL. ONE (11:33)
[2020-08-09] MEDS ORDERED: HEPARIN for IV BOLUS 10,000 UNIT/10 ML VIAL. ONE (11:34)
[2020-08-09] MEDS ORDERED: NITROGLYCERIN 200 MCG/2 ML SYRINGE FOR CATH/VASC LAB. ONE (11:34)
[2020-08-09] MEDS ORDERED: fentaNYL PF VIAL 100 MCG/2 ML VIAL ONE ×3 (11:34→13:12)
[2020-08-09] MEDS ORDERED: MIDAZOLAM HCL/PF 2 MG/2 ML VIAL. ONE ×3 (11:34→13:12)
[2020-08-09] MEDS ORDERED: VERAPAMIL 5 MG/2 ML VIAL. ONE ×2 (11:34→12:00)
[2020-08-09] MEDS ORDERED: IV NORMAL SALINE 1000ML BAG 1,000 ML IV SCH (11:45)
--- NOTE | 2020-08-09 11:45 | NUR ---
SW following. Discussed with RN, pt accepted at [facility] when medically ready for transfer. Pt having a run off today. SW will continue to follow.
--- NOTE | 2020-08-09 12:02 | PDOC ---
[employer] PROGRESS NOTE Date of Service DOS: DATE: 08/09/20 TIME: 11:56 Chief Complaint Chief Complaint PVD Right femoral to popliteal great saphenous bypass hx left great toe osteomyelitis pressure ulcer, left heal DM Hx diabetic neuropathy HTN Dyslipidemia History of Present Illness History of Present Illness 08/09/2020 Pt seen and examined, NAD. Discussed with RN and CM. Discussed with Dr. Long. Awaiting angiography of LLE. 08/08/2020 Pt seen and examined. Discussed case with RN and CM. Possible AFRO/ intervention with Dr. Long tomorrow for PVD of left lower extremity. 08/03/2020 No acute events overnight. Patient seen and examined bedside. Pain is just finished working with physical therapy and does complain of right lower extremity pain near incision sites. Patient's chart, labs, images were reviewed and discussed with RN 08/04/2020 No acute events overnight. Patient seen and examined bedside. Patient continues to have right lower extremity pain. Working with physical therapy. Patient's chart, labs, images were reviewed and discussed with RN 08/05/2020 No acute events overnight. Patient complains of right lower extremity pain aft er working physical therapy. Pain is usually 7 out of 10 on average. Patient has been accepted to [facility]. Vascular surgery will continue to observe in the hospital due to right heel wound in which they plan for angiogram next week sometime to reevaluate. 08/06/2020 Patient lying in bed in no acute distress. She was able to stand up with the help of a walker and denies any pain. She seems to be in quite good spirits and just request if she could shower. We will discussed this with vascular co nsultant. No evidence of infection over the surgical site. Reassurance has been Vitals/I&O Vitals/I&O: Vital Signs Date Time Temp Pulse Resp B/P (MAP) Pulse Ox O2 Delivery O2 Flow Rate FiO2 08/09/20 11:07 97.8 75 20 143/79 (100) 97 Room Air 97.8 08/09/20 11:03 8.0 I & O 08/08/20 08/08/20 08/09/20 15:00 23:00 07:00 Intake Total 360 ml 500 ml 340 ml Balance 360 ml 500 ml 340 ml Physical Exam General: Alert, Oriented X3, Cooperative, No acute distress Heart: Regular rate, Normal S1, Normal S2 Lungs: Clear Abdomen: Soft, No tenderness, Other Extremities: Other (left great toe amputation) Skin: Other (Right leg incisions intact, no erythema, good bypass pulses. Pressure ulcer noted to left heel.) Labs Labs: Laboratory Tests Test 08/08/20 16:42 08/08/20 20:43 08/09/20 07:56 08/09/20 08:14 Glucose (Fingerstick) 256 mg/dL (70-99) 239 mg/dL (70-99) 245 mg/dL (70-99) White Blood Count 6.3 x10^3/uL (4.0-11.0) Red Blood Count 4.34 x10^6/uL (3.50-5.40) Hemoglobin 13.0 g/dL (12.0-15.5) Hematocrit 38.1 % (36.0-47.0) Mean Corpuscular Volume 88 fL (79-100) Mean Corpuscular Hemoglobin 30 pg (25-35) Mean Corpuscular Hemoglobin Concent 34 g/dL (31-37) Red Cell Distribution Width 13.0 % (11.5-14.5) Platelet Count 315 x10^3/uL (140-400) Neutrophils (%) (Auto) 56 % (31-73) Lymphocytes (%) (Auto) 34 % (24-48) Monocytes (%) (Auto) 7 % (0-9) Eosinophils (%) (Auto) 2 % (0-3) Basophils (%) (Auto) 1 % (0-3) Neutrophils # (Auto) 3.5 x10^3/uL (1.8-7.7) Lymphocytes # (Auto) 2.1 x10^3/uL (1.0-4.8) Monocytes # (Auto) 0.4 x10^3/uL (0.0-1.1) Eosinophils # (Auto) 0.1 x10^3/uL (0.0-0.7) Basophils # (Auto) 0.1 x10^3/uL (0.0-0.2) Prothrombin Time 12.0 SEC (11.7-14.0) Prothromb Time International Ratio 0.9 (0.8-1.1) Activated Partial Thromboplast Time 30 SEC (24-38) Sodium Level 138 mmol/L (136-145) Potassium Level 4.6 mmol/L (3.5-5.1) Chloride Level 102 mmol/L (98-107) Carbon Dioxide Level 30 mmol/L (21-32) Anion Gap 6 (6-14) Blood Urea Nitrogen 9 mg/dL (7-20) Creatinine 0.5 mg/dL (0.6-1.0) Estimated GFR (Cockcroft-Gault) 134.0 Glucose Level 231 mg/dL (70-99) Calcium Level 9.4 mg/dL (8.5-10.1) Test 08/09/20 11:40 Glucose (Fingerstick) 217 mg/dL (70-99) Review of Systems Review of Systems: Denies N/V. 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 Vascular checks every 4 hours. PT, OT. Home meds. Trend labs. DVT prophalyxis. Full Code. Disposition pending result of LLE angiography. Comment Review of Relevant I have reviewed the following items filemon (where applicable) has been applied. Medications: Current Medications Medications (Trade) Dose Ordered Sig/Eun Route PRN Reason Start Time Stop Time Status Last Admin Dose Admin Insulin Human Lispro (HumaLOG) 10 units TIDWMEALS SQ 08/08/20 12:00 08/08/20 17:43 Justifications for Admission Other Justification ANNE MARIE BACON III DO Aug 09, 2020 12:02
[2020-08-09] MEDS ORDERED: LIDOCAINE 1% Multi-Dose 20 ML VIAL. INJ ONE (12:45)
[2020-08-09] MEDS ORDERED: MIDAZOLAM HCL/PF 2 MG/2 ML VIAL. IV ONE (12:45)
[2020-08-09] MEDS ORDERED: fentaNYL PF VIAL 100 MCG/2 ML VIAL IV ONE (12:45)
[2020-08-09] MEDS ORDERED: HEPARIN for IV BOLUS 10,000 UNIT/10 ML VIAL. IV ONE (12:45)
[2020-08-09] MEDS ORDERED: IODIXANOL 320 MG/ML 100 ML VIAL. IART ONE (12:45)
[2020-08-09] MEDS ORDERED: HEPARIN for IV BOLUS 10,000 UNIT/10 ML VIAL. IART ONE (13:30)
[2020-08-09] MEDS ORDERED: NITROGLYCERIN 200 MCG/2 ML SYRINGE FOR CATH/VASC LAB. IART ONE (13:30)
[2020-08-09] MEDS ORDERED: VERAPAMIL 5 MG/2 ML VIAL. IART ONE (13:30)
--- NOTE | 2020-08-09 13:36 | PDOC4 ---
OPERATIVE NOTE Date: Date: Aug 09, 2020 Pre-Op Diagnosis: Atherosclerosis of [place] arteries of left lower extremity with ulceration of the heel Diabetes mellitus type II with peripheral vascular disease Recent right femoropopliteal bypass now with pressure ulcer left heel, unable to access right groin for left leg intervention Post-Op Diagnosis: Same as above Procedure Performed: 1. Ultrasound-guided access left radial artery #2 radiology supervision interpretation aortogram #3 radiology supervision interpretation left leg runoff #4 left SFA angioplasty Surgeon: Олег Garzon Anesthesia Type: Conscious sedation under surgeon and RN supervision 60 minutes Versed 2.5 mg fentanyl 200 mcg Blood Loss: Minimal Specimans Obtained: None Findings: Aorta is widely patent without stenosis or aneurysm Bilateral common and external iliac arteries widely patent Left common femoral profunda femoris artery widely patent Left proximal SFA shows high-grade stenosis, the distal SFA has a long segment occlusion about 10 cm that reconstitutes in the area of the abductor canal The proximal left popliteal artery had a high-grade stenosis after above angioplasty treated with a 4 mm balloon Below the knee there is single-vessel TYREL runoff to the foot, the TYREL has mild to moderate stenosis but is patent After angioplasty left SFA is widely patent, the left popliteal artery shows mild residual stenosis of the P1 segment less than 30% there is inline flow to the foot uncompromised from above intervention Complications: None Operative Note: Patient was taken to the Newcomer Hostess placed supine on the table. The left wrist and the left groin were prepped and draped in usual sterile fashion after an Kobi's test confirmed good flow to the left hand with a continuous left radial compression. Conscious sedation was induced under surgeon and RN supervision using intravenous fentanyl and Versed after appropriate timeout was performed. Attention was directed to left wrist where the left radial artery was examined with ultrasound and found to be patent with good flow. An image of the vessels taken and saved for the medical record. Under real-time ultrasound guidance local anesthetic was injected in the left wrist and the left radial artery was accessed in a retrograde fashion using a micropuncture needle. The cylinder technique was used to place a wire into the left radial artery under ultrasound guidance and exchange the needle for a Terumo 4 5 slender sheath which was aspirated and flushed without difficulty and then radial cocktail was given via this. The patient was given intravenous heparin. I used the radial access to introduce a Bentson wire and a pigtail catheter and use this to select the descending aorta and advanced these down into the suprarenal abdominal aorta. Aortogram was obtained and the catheter was advanced down to the distal aorta just above the bifurcation oblique pelvic angiogram was obtained. Used an exchange length wire to exchange the catheter for a 150 cm angled 4 [place] Terumo catheter and use this in the wire to select the left iliac artery and advanced the wire and the catheter to the left common femoral artery. Left leg runoff was obtained. I used the catheter to advance a stiff Glidewire advantage in the left common femoral artery and give the patient additional heparin. The stiff wire was used to exchange the slender sheath for a 6 [place] 119 cm radial to peripheral Terumo sheath passed from the left radial artery into the left external iliac artery. I used the angled Carvajal cross catheter, the Bentson wire, and a V 18 wire to cross the SFA stenosis and then the SFA occlusion and reenter the true lumen distally in the popliteal artery. I then used to the V 18 to introduce a 0.018 rapid exchange Terumo 5 x 200 angioplasty balloon and performed angioplasty the entire SFA down through the after can abductor canal. Angiography showed some residual stenosis in the P1 section of popliteal artery and so this was treated with a 4mm x 100 mm Terumo balloon overlapping with the previous intervention. Angiography now showed a widely patent SFA and popliteal artery with brisk flow down to the foot. There was some moderate stenosis in the mid anterior tibial artery but this did give brisk flow to the foot so I decided given the limitations of radial access not intervene here. Once we confirm good intervention and no complication of distal runoff the small wire and catheter were removed. The Bentson wire and dilator were replaced through the sheath and the sheath was removed as the TR band was placed at the left wrist with good hemostasis. With a TR band in place and good hemostasis of the left radial artery access site I confirmed an excellent ulnar signal and excellent palmar arch signal with a hand-held continuous-wave Doppler. Patient was escorted to recovery in stable condition. She is already on aspirin and Plavix will continue these. NIR GARZON MD Aug 09, 2020 13:36
[2020-08-09] MEDS: DOCUSATE SODIUM 100 MG CAPSULE. PO SCH ×2 (14:17→21:00)
[2020-08-09] MEDS: CLOPIDOGREL BISULFATE 75 MG TABLET PO SCH (14:17)
[2020-08-09] MEDS: ASPIRIN CHEWABLE 81 MG TABLET. PO SCH (14:17)
[2020-08-09] MEDS: PANTOPRAZOLE 40 MG TABLET.DR. PO SCH (14:17)
[2020-08-09] MEDS: GEMFIBROZIL 600 MG TABLET. PO SCH ×2 (14:17→16:30)
--- NOTE | 2020-08-09 16:56 | NUR ---
Have reviewed documentation completed by underwriting internship and have made changes as needed
[2020-08-09] MEDS: CYCLOBENZAPRINE 10 MG TABLET. PO PRN (21:38)
[2020-08-09] MEDS: GABAPENTIN 300 MG CAPSULE. PO SCH (21:38)
[2020-08-09] MEDS: ZOLPIDEM 5 MG TABLET. PO PRN (21:38)
[2020-08-09] MEDS: oxyCODONE IR 5 MG TABLET PO PRN (21:38)
[2020-08-09] MEDS: diphenhydrAMINE HCL 25 MG CAPSULE PO PRN (21:40)
[2020-08-09] MEDS: INSULIN GLARGINE SYRINGE. SQ SCH (21:45)
[2020-08-10 02:55] VITALS: BP 155/68
[2020-08-10 07:00] VITALS: BP 119/71
[2020-08-10 07:13] LABS: BASO % 1 % (0-3); EOS # 0.1 x10^3/uL (0.0-0.7); EOS % 1 % (0-3); HEMATOCRIT 36.2 % (36.0-47.0); HEMOGLOBIN 12.3 g/dL (12.0-15.5); LYMPH # 1.9 x10^3/uL (1.0-4.8); LYMPH % 24 % (24-48); MEAN CORPUSCULAR HEMOGLOBIN 30 pg (25-35); MEAN CORPUSCULAR HGB CONC 34 g/dL (31-37); MEAN CORPUSCULAR VOLUME 88 fL (79-100); MONO # 0.6 x10^3/uL (0.0-1.1); MONO % 7 % (0-9); NEUT # 5.3 x10^3/uL (1.8-7.7); NEUT % 67 % (31-73); PLATELET COUNT 314 x10^3/uL (140-400); RED BLOOD COUNT 4.12 x10^6/uL (3.50-5.40); RED CELL DISTRIBUTION WIDTH 13.1 % (11.5-14.5); WHITE BLOOD COUNT 7.8 x10^3/uL (4.0-11.0)
[2020-08-10] MEDS: GEMFIBROZIL 600 MG TABLET. PO SCH ×2 (08:47→17:46)
[2020-08-10] MEDS: CLOPIDOGREL BISULFATE 75 MG TABLET PO SCH (08:48)
[2020-08-10] MEDS: ASPIRIN CHEWABLE 81 MG TABLET. PO SCH (08:48)
[2020-08-10] MEDS: DOCUSATE SODIUM 100 MG CAPSULE. PO SCH ×2 (08:48→21:00)
[2020-08-10] MEDS: oxyCODONE IR 5 MG TABLET PO PRN ×2 (08:48→13:57)
[2020-08-10] MEDS: PANTOPRAZOLE 40 MG TABLET.DR. PO SCH (08:49)
[2020-08-10] MEDS: HEPARIN for SUB-Q USE 5,000 UNIT/ML VIAL. SQ SCH ×2 (08:56→21:19)
[2020-08-10] MEDS: INSULIN LISPRO 300 UNITS/3 ML VIAL. SQ SCH ×6 (08:56→17:54)
[2020-08-10] MEDS: ELECTROLYTE (NON-ICU) PROTOCOL MC SCH (09:00)
[2020-08-10 10:50] VITALS: BP 127/69
--- NOTE | 2020-08-10 13:21 | PDOC ---
[employer] [facility] PROGRESS NOTE Date of Service DOS: DATE: 08/10/20 TIME: 13:16 Chief Complaint Chief Complaint PVD Right femoral to popliteal great saphenous bypass hx left great toe osteomyelitis pressure ulcer, left heal DM Hx diabetic neuropathy HTN Dyslipidemia History of Present Illness History of Present Illness 08/10/2020 Patient had left leg runoff yesterday. Patient has some pain, redness, foul odor, and induration to her right groin following her right femoral below-knee popliteal bypass. Discussed with RN who noted some purulent drainage. Will obtain cultures. 08/09/2020 Pt seen and examined, NAD. Discussed with RN and CM. Discussed with Dr. Long. Awaiting angiography of LLE. 08/08/2020 Pt seen and examined. Discussed case with RN and CM. Possible AFRO/ intervention with Dr. Long tomorrow for PVD of left lower extremity. 08/03/2020 No acute events overnight. Patient seen and examined bedside. Pain is just finished working with physical therapy and does complain of right lower extremity pain near incision sites. Patient's chart, labs, images were reviewed and discussed with RN 08/04/2020 No acute events overnight. Patient seen and examined bedside. Patient continues to have right lower extremity pain. Working with physical therapy. Patient's chart, labs, images were reviewed and discussed with RN 08/05/2020 No acute events overnight. Patient complains of right lower extremity pain after working physical therapy. Pain is usually 7 out of 10 on average. Patient has been accepted to [facility]. Vascular surgery will continue to observe in the hospital due to right heel wound in which they plan for angiogram next week sometime to reevaluate. 08/06/2020 Patient lying in bed in no acute distress. She was able to stand up with the help of a walker and denies any pain. She seems to be in quite good spirits and just request if she could shower. We will discussed this with vascular ruby on rails consultant. No evidence of infection over the surgical site. Reassurance has been Vitals/I&O Vitals/I&O: Vital Signs Date Time Temp Pulse Resp B/P (MAP) Pulse Ox O2 Delivery O2 Flow Rate FiO2 08/10/20 10:50 97.8 83 18 127/69 (88) 96 Room Air 97.8 08/09/20 17:23 2.0 I & O 08/09/20 08/09/20 08/10/20 15:00 23:00 07:00 Intake Total 1020 ml 100 ml Output Total 400 ml 0 ml Balance 620 ml 100 ml Physical Exam General: Alert, Oriented X3, Cooperative, No acute distress Heart: Regular rate, Normal S1, Normal S2 Lungs: Clear Abdomen: Soft, No tenderness, Other Extremities: Other (left great toe amputation) Skin: Other (Right leg incisions intact, no erythema, good bypass pulses. Pressure ulcer noted to left heel.) Labs Labs: Laboratory Tests Test 08/09/20 16:18 08/09/20 20:37 08/10/20 06:30 08/10/20 07:27 Glucose (Fingerstick) 237 mg/dL (70-99) 179 mg/dL (70-99) 229 mg/dL (70-99) White Blood Count 7.8 x10^3/uL (4.0-11.0) Red Blood Count 4.12 x10^6/uL (3.50-5.40) Hemoglobin 12.3 g/dL (12.0-15.5) Hematocrit 36.2 % (36.0-47.0) Mean Corpuscular Volume 88 fL (79-100) Mean Corpuscular Hemoglobin 30 pg (25-35) Mean Corpuscular Hemoglobin Concent 34 g/dL (31-37) Red Cell Distribution Width 13.1 % (11.5-14.5) Platelet Count 314 x10^3/uL (140-400) Neutrophils (%) (Auto) 67 % (31-73) Lymphocytes (%) (Auto) 24 % (24-48) Monocytes (%) (Auto) 7 % (0-9) Eosinophils (%) (Auto) 1 % (0-3) Basophils (%) (Auto) 1 % (0-3) Neutrophils # (Auto) 5.3 x10^3/uL (1.8-7.7) Lymphocytes # (Auto) 1.9 x10^3/uL (1.0-4.8) Monocytes # (Auto) 0.6 x10^3/uL (0.0-1.1) Eosinophils # (Auto) 0.1 x10^3/uL (0.0-0.7) Basophils # (Auto) 0.0 x10^3/uL (0.0-0.2) Test 08/10/20 11:15 Glucose (Fingerstick) 223 mg/dL (70-99) Review of Systems Review of Systems: Right groin pain. Denies fever, denies nausea, denies vomiting. Assessment and Plan Problems: (1) Radiculopathy (2) Toe osteomyelitis, left (3) Diabetes mellitus type 2 with peripheral artery disease (4) Peripheral artery disease Comment Review of Relevant I have reviewed the following items filemon (where applicable) has been applied. Justifications for Admission Other Justification GARY NUNES MD Aug 10, 2020 13:21
--- NOTE | 2020-08-10 13:48 | PDOC ---
Provider Note Date of Service: DATE: 08/10/20 TIME: 13:41 Provider Note Provider Note Vascular S: Patient seen and examined in room. Patient and nurse report patient has had some malodorous drainage from her right groin. Patient states that she i moving much better today. Tolerating diet. O: Awake and alert VSS, afebrile Right groin with mild incisional slough at proximal portion of incision < 0.5cm, no incisional dehiscence, no fluctuance or drainage. Steristrips removed, remaining incision intact. All remaining incisions dry and intact without erythema or swelling. Left radial access site tender, mild swelling, no hematoma, palpable radial pulse. Left foot warm, heel pressure injury remains stable. A/P: PVD s/p right femoral to popliteal bypass s/p left femoral angioplasty Recommend dry gauze dressing to right groin. Discussed with Dr. Pisano, will initiate abx. Recommend continue off-loading left heel. Will continue to monitor, no plans for surgical debridement at this time. Continue daily Aspirin and Plavix. SS for discharge planning Justicifation of Admission Dx: Justifications for Admission: Justification of Admission Dx: Yes Cellulitis: Cellulitis MARNI GREER SUPERVISOR [employer]ODUCTION Aug 10, 2020 13:48
[2020-08-10 15:06] VITALS: BP 120/68
--- NOTE | 2020-08-10 16:38 | NUR ---
Wound/Ostomy Care Wound Type/Assessment: Patient seen per wound care consult regarding left heel DFU. Wound is assessed and measured. Wound is dark reddened and purple with no depth or drainage. Treatment Recommendations/Plan: Recommendations for skin prep and foam to left heel and to offload as much as possible. Patient is s/p right femoral below the knee popliteal bipass on 08/02, therefore vascular is on the case and is aware of the wound to the left heel. No surgical intervention at this time. Education provided: Patient educated on offloading and dressing changes. Offloading surface/device: floating left heel, patient is able to ambulate and self turn at this time. Recommended Referrals/Tests: N/A Discharge Recommendations for dressings: Continue current treatment. left heel floated on two pillows. Bed lowered and call light in reach. No other wounds noted. Gauze to right groin is clean and dry and intact. Dressing change instructions left in room. Wound care will follow on 08/17/20.
[2020-08-10 19:00] VITALS: BP 108/61
[2020-08-10] MEDS: INSULIN GLARGINE SYRINGE. SQ SCH (21:20)
[2020-08-10] MEDS: diphenhydrAMINE HCL 25 MG CAPSULE PO PRN (21:21)
[2020-08-10] MEDS: oxyCODONE/APAP 10/325 1 TAB TABLET PO PRN (21:21)
[2020-08-10] MEDS: ZOLPIDEM 5 MG TABLET. PO PRN (21:21)
[2020-08-10] MEDS: CYCLOBENZAPRINE 10 MG TABLET. PO PRN (21:21)
[2020-08-10] MEDS: GABAPENTIN 300 MG CAPSULE. PO SCH (21:21)
[2020-08-10] MEDS: DOXYCYCLINE HYCLATE 100 MG TABLET PO SCH (21:22)
[2020-08-10 23:10] VITALS: BP 113/62
[2020-08-11] MEDS: oxyCODONE IR 5 MG TABLET PO PRN (02:48)
[2020-08-11 03:04] VITALS: BP 98/61
[2020-08-11 05:39] LABS: BASO # 0.1 x10^3/uL (0.0-0.2); BASO % 1 % (0-3); EOS # 0.2 x10^3/uL (0.0-0.7); EOS % 3 % (0-3); HEMATOCRIT 38.8 % (36.0-47.0); HEMOGLOBIN 13.1 g/dL (12.0-15.5); LYMPH # 2.9 x10^3/uL (1.0-4.8); LYMPH % 43 % (24-48); MEAN CORPUSCULAR HEMOGLOBIN 30 pg (25-35); MEAN CORPUSCULAR HGB CONC 34 g/dL (31-37); MEAN CORPUSCULAR VOLUME 88 fL (79-100); MONO # 0.5 x10^3/uL (0.0-1.1); MONO % 8 % (0-9); NEUT # 3.1 x10^3/uL (1.8-7.7); NEUT % 46 % (31-73); PLATELET COUNT 331 x10^3/uL (140-400); RED BLOOD COUNT 4.39 x10^6/uL (3.50-5.40); RED CELL DISTRIBUTION WIDTH 13.4 % (11.5-14.5); WHITE BLOOD COUNT 6.7 x10^3/uL (4.0-11.0)
[2020-08-11 06:00] LABS: CALCIUM 9.4 mg/dL (8.5-10.1); CREATININE 0.5 mg/dL (0.6-1.0); POTASSIUM 4.1 mmol/L (3.5-5.1)
[2020-08-11 07:00] VITALS: BP 98/56
[2020-08-11] MEDS: ELECTROLYTE (NON-ICU) PROTOCOL MC SCH (09:00)
[2020-08-11] MEDS: DOXYCYCLINE HYCLATE 100 MG TABLET PO SCH (09:10)
[2020-08-11] MEDS: GEMFIBROZIL 600 MG TABLET. PO SCH ×2 (09:10→17:42)
[2020-08-11] MEDS: ASPIRIN CHEWABLE 81 MG TABLET. PO SCH (09:10)
[2020-08-11] MEDS: DOCUSATE SODIUM 100 MG CAPSULE. PO SCH (09:10)
[2020-08-11] MEDS: CLOPIDOGREL BISULFATE 75 MG TABLET PO SCH (09:11)
[2020-08-11] MEDS: PANTOPRAZOLE 40 MG TABLET.DR. PO SCH (09:11)
[2020-08-11] MEDS: CYCLOBENZAPRINE 10 MG TABLET. PO PRN (09:11)
[2020-08-11] MEDS: HEPARIN for SUB-Q USE 5,000 UNIT/ML VIAL. SQ SCH (09:18)
[2020-08-11] MEDS: INSULIN LISPRO 300 UNITS/3 ML VIAL. SQ SCH ×6 (09:19→17:41)
[2020-08-11 11:00] VITALS: BP 112/62
--- NOTE | 2020-08-11 12:16 | NUR ---
SS following up with discharge planning. SS reviewed pt chart and discussed with pt RN. Pt is currently on room air. Pt requesting to return to home with home healthcare and is agreeable to [facility], ; fax [phone]. Currently awaiting cultures at this time to determine antibiotics. SS will continue to follow for discharge planning.
[2020-08-11] MEDS: oxyCODONE/APAP 10/325 1 TAB TABLET PO PRN (12:49)
--- NOTE | 2020-08-11 13:40 | PDOC ---
Provider Note Date of Service: DATE: 08/11/20 TIME: 13:37 Provider Note Provider Note Vascular S: Patient seen and examined in room. Malodorous drainage from her right groin unchanged. Patient states she is ready to go home. Cultures from right groin still pending. Tolerating diet. O: Awake and alert VSS, afebrile Right groin with mild incisional slough at proximal portion of incision < 0.5cm, no incisional dehiscence, no fluctuance or drainage. Remaining incision intact. All remaining incisions dry and intact without erythema or swelling. Left radial access site with hematoma or swelling. Left foot warm, heel pressure injury remains stable, mild overall improvement. A/P: PVD s/p right femoral to popliteal bypass s/p left femoral angioplasty Recommend dry gauze dressing to right groin. Continue abx per IM. Recommend continue off-loading left heel. Will continue to monitor, no plans for surgical debridement at this time. Continue daily Aspirin and Plavix. SS for discharge planning Justicifation of Admission Dx: Justifications for Admission: Justification of Admission Dx: Yes Cellulitis: Cellulitis MARNI GREER BIOMETRICS INSTRUCTOR Aug 11, 2020 13:40
[2020-08-11 15:00] VITALS: BP 96/63
--- NOTE | 2020-08-11 15:03 | PDOC ---
[employer] [facility] PROGRESS NOTE Date of Service DOS: DATE: 08/11/20 TIME: 14:59 Chief Complaint Chief Complaint PVD Right femoral to popliteal great saphenous bypass hx left great toe osteomyelitis pressure ulcer, left heal DM Hx diabetic neuropathy HTN Dyslipidemia History of Present Illness History of Present Illness 08/11/2020 Patient feels well, ready to go home. Still with some pain to her right groin, denies any noticeable drainage. Culture still pending. Stable to discharge from surgery standpoint, will do so with oral antibiotics. 08/10/2020 Patient had left leg runoff yesterday. Patient has some pain, redness, foul odor, and induration to her right groin following her right femoral below-knee popliteal bypass. Discussed with RN who noted some purulent drainage. Will obtain cultures. 08/09/2020 Pt seen and examined, NAD. Discussed with RN and CM. Discussed with Dr. Long. Awaiting angiography of LLE. 08/08/2020 Pt seen and examined. Discussed case with RN and CM. Possible AFRO/ intervention with Dr. Long tomorrow for PVD of left lower extremity. 08/03/2020 No acute events overnight. Patient seen and examined bedside. Pain is just finished working with physical therapy and does complain of right lower extremity pain near incision sites. Patient's chart, labs, images were reviewed and discussed with RN 08/04/2020 No acute events overnight. Patient seen and examined bedside. Patient con tinues to have right lower extremity pain. Working with physical therapy. Patient's chart, labs, images were reviewed and discussed with RN 08/05/2020 No acute events overnight. Patient complains of right lower extremity pain after working physical therapy. Pain is usually 7 out of 10 on average. Patient has been accepted to [facility]. Vascular surgery will continue to observe in the hospital due to right heel wound in which they plan for angiogram next week sometime to reevaluate. 08/06/2020 Patient lying in bed in no acute distress. She was able to stand up with the help of a walker and denies any pain. She seems to be in quite good spirits and just request if she could shower. We will discussed this with vascular dynamics ax consultant. No evidence of infection over the surgical site. Reassurance has been Vitals/I&O Vitals/I&O: Vital Signs Date Time Temp Pulse Resp B/P (MAP) Pulse Ox O2 Delivery O2 Flow Rate FiO2 08/11/20 12:49 Room Air 08/11/20 07:00 98.3 68 21 98/56 (70) 99 98.3 08/10/20 08:00 2.0 I & O 08/10/20 08/10/20 08/11/20 15:00 23:00 07:00 Intake Total 600 ml 460 ml Balance 600 ml 460 ml Physical Exam General: Alert, Oriented X3, Cooperative, No acute distress Heart: Regular rate, Normal S1, Normal S2 Lungs: Clear Abdomen: Soft, No tenderness, Other Extremities: Other (left great toe amputation) Skin: Other (Right leg incisions intact, no erythema, good bypass pulses. Pressure ulcer noted to left heel.) Labs Labs: Laboratory Tests Test 08/10/20 16:42 08/10/20 20:50 08/11/20 05:10 08/11/20 07:59 Glucose (Fingerstick) 211 mg/dL (70-99) 182 mg/dL (70-99) 164 mg/dL (70-99) White Blood Count 6.7 x10^3/uL (4.0-11.0) Red Blood Count 4.39 x10^6/uL (3.50-5.40) Hemoglobin 13.1 g/dL (12.0-15.5) Hematocrit 38.8 % (36.0-47.0) Mean Corpuscular Volume 88 fL (79-100) Mean Corpuscular Hemoglobin 30 pg (25-35) Mean Corpuscular Hemoglobin Concent 34 g/dL (31-37) Red Cell Distribution Width 13.4 % (11.5-14.5) Platelet Count 331 x10^3/uL (140-400) Neutrophils (%) (Auto) 46 % (31-73) Lymphocytes (%) (Auto) 43 % (24-48) Monocytes (%) (Auto) 8 % (0-9) Eosinophils (%) (Auto) 3 % (0-3) Basophils (%) (Auto) 1 % (0-3) Neutrophils # (Auto) 3.1 x10^3/uL (1.8-7.7) Lymphocytes # (Auto) 2.9 x10^3/uL (1.0-4.8) Monocytes # (Auto) 0.5 x10^3/uL (0.0-1.1) Eosinophils # (Auto) 0.2 x10^3/uL (0.0-0.7) Basophils # (Auto) 0.1 x10^3/uL (0.0-0.2) Sodium Level 137 mmol/L (136-145) Potassium Level 4.1 mmol/L (3.5-5.1) Chloride Level 102 mmol/L (98-107) Carbon Dioxide Level 26 mmol/L (21-32) Anion Gap 9 (6-14) Blood Urea Nitrogen 14 mg/dL (7-20) Creatinine 0.5 mg/dL (0.6-1.0) Estimated GFR (Cockcroft-Gault) 134.0 Glucose Level 158 mg/dL (70-99) Calcium Level 9.4 mg/dL (8.5-10.1) Test 08/11/20 11:50 Glucose (Fingerstick) 193 mg/dL (70-99) Review of Systems Review of Systems: Right groin pain. Denies fever, denies nausea, denies shortness of breath, denies chest pain. Assessment and Plan Problems: (1) Peripheral artery disease (2) Diabetes mellitus type 2 with peripheral artery disease (3) Radiculopathy (4) Toe osteomyelitis, left Comment Review of Relevant I have reviewed the following items filemon (where applicable) has been applied. Medications: Current Medications Medications (Trade) Dose Ordered Sig/Eun Route PRN Reason Start Time Stop Time Status Last Admin Dose Admin Doxycycline Hyclate (Vibra-Tab) 100 mg BID PO 08/10/20 21:00 08/11/20 09:10 Justifications for Admission Other Justification GARY NUNES MD Aug 11, 2020 15:03
--- NOTE | 2020-08-11 16:33 | NUR ---
Have reviewed documentation completed by internet merchant and have made changes as needed/appropriate
[2020-08-11] MEDS ORDERED: AMOX1TAB61 PO (16:36)
[2020-08-11] MEDS ORDERED: DOXY100T PO (16:36)
--- NOTE | 2020-08-11 16:46 | PDOC3 ---
Discharge Summary Visit Information Date of Admission: Aug 02, 2020 Date of Discharge: Aug 11, 2020 Brief Hospital Course Allergies Allergies Coded Allergies Type Severity Reaction Last Updated Verified No Known Drug Allergies 06/14/19 No Vital Signs Vital Signs Date Time Temp Pulse Resp B/P (MAP) Pulse Ox O2 Delivery O2 Flow Rate FiO2 08/11/20 15:00 97.7 89 21 96/63 (74) 98 Room Air 97.7 08/10/20 08:00 2.0 Lab Results Laboratory Tests Test 08/09/20 20:37 08/10/20 06:30 08/10/20 07:27 08/10/20 11:15 Glucose (Fingerstick) 179 mg/dL (70-99) 229 mg/dL (70-99) 223 mg/dL (70-99) White Blood Count 7.8 x10^3/uL (4.0-11.0) Red Blood Count 4.12 x10^6/uL (3.50-5.40) Hemoglobin 12.3 g/dL (12.0-15.5) Hematocrit 36.2 % (36.0-47.0) Mean Corpuscular Volume 88 fL (79-100) Mean Corpuscular Hemoglobin 30 pg (25-35) Mean Corpuscular Hemoglobin Concent 34 g/dL (31-37) Red Cell Distribution Width 13.1 % (11.5-14.5) Platelet Count 314 x10^3/uL (140-400) Neutrophils (%) (Auto) 67 % (31-73) Lymphocytes (%) (Auto) 24 % (24-48) Monocytes (%) (Auto) 7 % (0-9) Eosinophils (%) (Auto) 1 % (0-3) Basophils (%) (Auto) 1 % (0-3) Neutrophils # (Auto) 5.3 x10^3/uL (1.8-7.7) Lymphocytes # (Auto) 1.9 x10^3/uL (1.0-4.8) Monocytes # (Auto) 0.6 x10^3/uL (0.0-1.1) Eosinophils # (Auto) 0.1 x10^3/uL (0.0-0.7) Basophils # (Auto) 0.0 x10^3/uL (0.0-0.2) Test 08/10/20 16:42 08/10/20 20:50 08/11/20 05:10 08/11/20 07:59 Glucose (Fingerstick) 211 mg/dL (70-99) 182 mg/dL (70-99) 164 mg/dL (70-99) White Blood Count 6.7 x10^3/uL (4.0-11.0) Red Blood Count 4.39 x10^6/uL (3.50-5.40) Hemoglobin 13.1 g/dL (12.0-15.5) Hematocrit 38.8 % (36.0-47.0) Mean Corpuscular Volume 88 fL (79-100) Mean Corpuscular Hemoglobin 30 pg (25-35) Mean Corpuscular Hemoglobin Concent 34 g/dL (31-37) Red Cell Distribution Width 13.4 % (11.5-14.5) Platelet Count 331 x10^3/uL (140-400) Neutrophils (%) (Auto) 46 % (31-73) Lymphocytes (%) (Auto) 43 % (24-48) Monocytes (%) (Auto) 8 % (0-9) Eosinophils (%) (Auto) 3 % (0-3) Basophils (%) (Auto) 1 % (0-3) Neutrophils # (Auto) 3.1 x10^3/uL (1.8-7.7) Lymphocytes # (Auto) 2.9 x10^3/uL (1.0-4.8) Monocytes # (Auto) 0.5 x10^3/uL (0.0-1.1) Eosinophils # (Auto) 0.2 x10^3/uL (0.0-0.7) Basophils # (Auto) 0.1 x10^3/uL (0.0-0.2) Sodium Level 137 mmol/L (136-145) Potassium Level 4.1 mmol/L (3.5-5.1) Chloride Level 102 mmol/L (98-107) Carbon Dioxide Level 26 mmol/L (21-32) Anion Gap 9 (6-14) Blood Urea Nitrogen 14 mg/dL (7-20) Creatinine 0.5 mg/dL (0.6-1.0) Estimated GFR (Cockcroft-Gault) 134.0 Glucose Level 158 mg/dL (70-99) Calcium Level 9.4 mg/dL (8.5-10.1) Test 08/11/20 11:50 Glucose (Fingerstick) 193 mg/dL (70-99) Laboratory Tests Test 08/10/20 20:50 08/11/20 05:10 08/11/20 07:59 08/11/20 11:50 Glucose (Fingerstick) 182 mg/dL (70-99) 164 mg/dL (70-99) 193 mg/dL (70-99) White Blood Count 6.7 x10^3/uL (4.0-11.0) Red Blood Count 4.39 x10^6/uL (3.50-5.40) Hemoglobin 13.1 g/dL (12.0-15.5) Hematocrit 38.8 % (36.0-47.0) Mean Corpuscular Volume 88 fL (79-100) Mean Corpuscular Hemoglobin 30 pg (25-35) Mean Corpuscular Hemoglobin Concent 34 g/dL (31-37) Red Cell Distribution Width 13.4 % (11.5-14.5) Platelet Count 331 x10^3/uL (140-400) Neutrophils (%) (Auto) 46 % (31-73) Lymphocytes (%) (Auto) 43 % (24-48) Monocytes (%) (Auto) 8 % (0-9) Eosinophils (%) (Auto) 3 % (0-3) Basophils (%) (Auto) 1 % (0-3) Neutrophils # (Auto) 3.1 x10^3/uL (1.8-7.7) Lymphocytes # (Auto) 2.9 x10^3/uL (1.0-4.8) Monocytes # (Auto) 0.5 x10^3/uL (0.0-1.1) Eosinophils # (Auto) 0.2 x10^3/uL (0.0-0.7) Basophils # (Auto) 0.1 x10^3/uL (0.0-0.2) Sodium Level 137 mmol/L (136-145) Potassium Level 4.1 mmol/L (3.5-5.1) Chloride Level 102 mmol/L (98-107) Carbon Dioxide Level 26 mmol/L (21-32) Anion Gap 9 (6-14) Blood Urea Nitrogen 14 mg/dL (7-20) Creatinine 0.5 mg/dL (0.6-1.0) Estimated GFR (Cockcroft-Gault) 134.0 Glucose Level 158 mg/dL (70-99) Calcium Level 9.4 mg/dL (8.5-10.1) Brief Hospital Course Ms. Ayala is a 45 old female who presented with femoral artery disease with severe bilateral lower extremity pain. She had right femoral to below knee popliteal bypass with nonreversed great saphenous vein graft on 08/02/20. She received PT/OT and was initially thought to require halfway, however patient improved to the standpoint of being able to go home with self-care. She was discharged on oral antibiotics for 7 days. Recommended close PCP follow-up. Discharge Information Condition at Discharge: Improved Follow Up: Weeks Disposition/Orders: D/C to Home Scheduled Amoxicillin/Potassium Clav (Augmentin 875-125 Tablet) 1 Each Tablet, 1 TAB PO BID for Cellulitis for 7 Days, #14 Ref 0 Prescribed by: GARY NUNES MD on 08/11/20 1636 Aspirin (Children's Aspirin) 81 Mg Tab.chew, 1 TAB PO DAILY for rx for 30 Days, #30 Ref 0 (Reported) Entered as Reported by: OSCAR NORTH on 06/28/20830 Last Action: Continued on 08/02/20734 by STEF GOMEZ Clopidogrel Bisulfate (Clopidogrel) 75 Mg Tablet, 1 TAB PO DAILY for rx, #90 Ref 1 (Reported) has not startedit yet Entered as Reported by: OSCAR NORTH on 06/28/20830 Last Taken: Unknown Dose on 08/02/20 0430 Last Action: Continued on 08/02/20734 by STEF GOMEZ Doxycycline Hyclate (Doxycycline Hyclate) 100 Mg Tablet, 100 MG PO BID for Cellulitis for 7 Days, #14 Prescribed by: GARY NUNES MD on 08/11/20 1636 Gabapentin (Gabapentin ) 300 Mg Capsule, 300 MG PO QHS for NEUROGENIC PAIN, (Reported) Entered as Reported by: OSCAR NORTH on 06/28/2036 Last Action: Continued on 08/02/20734 by STEF GOMEZ Insulin Glargine,Hum.rec.anlog (Lantus Solostar) 100 Unit/1 Ml Insuln.pen, 20 UNIT SQ QHS for rx, #15 Ref 5 (Reported) Entered as Reported by: OSCAR NORTH on 06/28/20735 Last Action: Converted on 08/02/20734 by STEF GOMEZ Meloxicam (Meloxicam) 15 Mg Tablet, 1 TAB PO DAILY for rx for 30 Days, #30 Ref 0 (Reported) Entered as Reported by: OSCAR NORTH on 06/28/20735 Last Action: HELD on 08/02/20734 by STEF GOMEZ Pantoprazole Sodium (Protonix) 20 Mg Tablet.dr, 40 MG PO DAILY for gerd for 30 Days, #60 Prescribed by: MARLA GRANDE on 06/21/19918 Last Action: Converted on 08/02/20734 by STEF GOMEZ Scheduled PRN Cyclobenzaprine Hcl (Cyclobenzaprine Hcl) 10 Mg Tablet, 1 TAB PO TID PRN for MUSCLE SPASMS, #30 (Reported) Entered as Reported by: RASHEL HILL on 06/14/19 1409 Last Taken: Unknown Dose on 08/02/20 0430 Last Action: Continued on 08/02/20734 by STEF GOMEZ Insulin Lispro (Humalog) 100 Unit/1 Ml Cartridge, 10 UNIT SQ DAILYAC PRN for rx, (Reported) add an extra unit for Bg >200 Entered as Reported by: OSCAR NORTH on 06/28/20735 Last Action: Converted on 08/02/20734 by STEF GOMEZ Justicifation of Admission Dx: Justifications for Admission: Justification of Admission Dx: Yes Cellulitis: Cellulitis GARY NUNES MD Aug 11, 2020 16:46
--- NOTE | 2020-08-11 19:35 | NUR ---
Discharge Note: AMAYA NEVARZE [address] Discharge instructions and discharge home medications reviewed with Patient and a copy given. All questions have been answered and understanding verbalized. The following instructions and handouts were given: Follow up instructions, post femoral and wrist access care, diet, femoral bypass care, no bath or drive, wound care and boot. Discontinued lines and drains: IV removed. no lines present at discharge. Patient discharged to home with home health. left by wheelchair to private vehicle.
--- NOTE | 2020-08-12 10:01 | SNU/HH DC ---
DISCHARGE WITH HOME HEALTH DISCHARGE INFORMATION: Discharge Date: Aug 11, 2020 Final Diagnosis: Peripheral artery disease Condition on Discharge: Stable HOME HEALTH: Face to Face: I certify this patient is under my care and that I, or a nurse practitioner or physician's circulation assistant working with me, had a face to face encounter that meets the physician face to face encounter requirements with this patient on 08/11/2020. RN For Eval/Treatment: Yes Physical Therapy For: Evalulation/Treatment Occupational Therapy For: Evaluation/Treatment Pt Meets Homebound Status: Poor coordination w/ amb., Extreme weakness w/ amb. POST DISCHARGE ORDERS: Activity Instructions for Disc: Activity as tolerated Weight Bearing Status after Di: No restrictions, As tolerated Bathing Instructions: Shower-keep dressing dry Wound/Incision Care: Keep wound/cast CDI CHECKS AFTER DISCHARGE: Checks after discharge: Check blood press - daily FOLLOW-UP: Follow Up With: Call Dr. Rincon about follow up. TREATMENT/EQUIPMENT ORDERS: Adaptive Equipment Issued: Walker CERTIFICATION STATEMENT: Certification Statement: Certification Statement: Based on the above finding, I certify that this patient is confined to the home and needs intermittent senior care care, physical therapy and/or speech therapy, or continues to need occupational therapy.~ This patient is under my care, and I have initiated the establishment of the plan of care.~ This patient will be followed by myself or a community physician who will periodically review the plan of care. Home Meds Active Scripts Amoxicillin/Potassium Clav (AUGMENTIN 875-125 TABLET) 1 Each Tablet, 1 TAB PO BID for Cellulitis for 7 Days, #14 TAB 0 Refills Prov:GARY NUNES MD 08/11/20 Doxycycline Hyclate (DOXYCYCLINE HYCLATE) 100 Mg Tablet, 100 MG PO BID for Cellulitis for 7 Days, #14 TAB Prov:GARY NUNES MD 08/11/20 Pantoprazole Sodium (PROTONIX) 20 Mg Tablet., 40 MG PO DAILY for gerd for 30 Days, #60 TAB Prov:HARJINDER GUTIÉRREZ MD 06/21/19 Reported Medications Clopidogrel Bisulfate (CLOPIDOGREL) 75 Mg Tablet, 1 TAB PO DAILY for rx, #90 TAB 1 Refill has not startedit yet 06/28/20 Aspirin (Children's Aspirin) 81 Mg Tab.chew, 1 TAB PO DAILY for rx for 30 Days, #30 TAB 0 Refills 06/28/20 Meloxicam (MELOXICAM) 15 Mg Tablet, 1 TAB PO DAILY for rx for 30 Days, #30 TAB 0 Refills 06/28/20 Gabapentin (GABAPENTIN ) 300 Mg Capsule, 300 MG PO QHS for NEUROGENIC PAIN, CAP 06/28/20 Insulin Lispro (HUMALOG) 100 Unit/1 Ml Cartridge, 10 UNIT SQ DAILYAC PRN for rx, EACH add an extra unit for Bg >200 06/28/20 Insulin Glargine,Hum.rec.anlog (LANTUS SOLOSTAR) 100 Unit/1 Ml Insuln.pen, 20 UNIT SQ QHS for rx, #15 ML 5 Refills 06/28/20 Cyclobenzaprine Hcl (CYCLOBENZAPRINE HCL) 10 Mg Tablet, 1 TAB PO TID PRN for MUSCLE SPASMS, #30 TAB 06/14/19 GARY NUNES MD Aug 12, 2020 10:01
== END 2020-08-11 19:00 | disposition home health service (06) | DRG 253 ==
LOC: OPSVCIP 05:46 → 2 SOUTH 11:40
PROVIDERS: ADMIT Specialist; ATTEND Specialist
PROC: 041 Lower Arteries, Bypass (ICD-10-PCS; 2020-08-02)
PROC: 06BP0ZZ Excision of Right Saphenous Vein, Open Approach (ICD-10-PCS; 2020-08-02)
PROC: 047L3ZZ Dilation of Left Femoral Artery, Percutaneous Approach (ICD-10-PCS; principal; 2020-08-09)
PROC: B41D1ZZ Fluoroscopy of Aorta and Bilateral Lower Extremity Arteries using Low Osmolar Contrast (ICD-10-PCS; 2020-08-09)
DX: E11.51 Type 2 diabetes mellitus with diabetic peripheral angiopathy without gangrene (principal); M86.8X7 Other osteomyelitis, ankle and foot; E11.69 Type 2 diabetes mellitus with other specified complication; I70.202 Unspecified atherosclerosis of native arteries of extremities, left leg; E11.40 Type 2 diabetes mellitus with diabetic neuropathy, unspecified; E11.628 Type 2 diabetes mellitus with other skin complications; E11.65 Type 2 diabetes mellitus with hyperglycemia; E66.01 Morbid (severe) obesity due to excess calories; E78.5 Hyperlipidemia, unspecified; F17.200 Nicotine dependence, unspecified, uncomplicated; I10 Essential (primary) hypertension; L89.629 Pressure ulcer of left heel, unspecified stage; M54.10 Radiculopathy, site unspecified; M79.7 Fibromyalgia; Z79.82 Long term (current) use of aspirin; Z82.49 Family history of ischemic heart disease and other diseases of the circulatory system; Z83.3 Family history of diabetes mellitus; Z89.412 Acquired absence of left great toe; Z89.429 Acquired absence of other toe(s), unspecified side; Z90.710 Acquired absence of both cervix and uterus; Z79.899 Other long term (current) drug therapy; Z79.4 Long term (current) use of insulin; Z20.828 Contact with and (suspected) exposure to other viral communicable diseases
CPT/HCPCS: 36415; 37224; 75625; 75710; 80048; 80053; 80061; 82962; 83036; 83735; 84100; 85007; 85025; 85610; 85730; 86850; 86900; 86901; 87070; 90471; 90686; 99152; 99153; 99406; A7015; C1713; C1725; C1769; C1892; C1894; J0690; J1100; J1170; J1644; J1815; J2250; J2270; J2405; J2440; J2710; J2720; J3010; J3490; J7030; J7040; J7120; Q9967; 97110-GO; 97110-GP; 97116-GP; 97530-GO; 97530-GP; 97535-GO; G0378; Q0163; U0003-CS

== ENCOUNTER → 2021-01-19 | Outpatient (CLI) | payer OTHER ==
[~2021-01-19] MED LIST changes: +DOXY100T PO
--- NOTE | 2021-01-19 10:49 | RAD ---
01/19/2021 Ankle brachial indices Right lower extremity arterial duplex ultrasound INDICATION: Evaluate bypass graft Discussion: Blood pressure measurements were obtained in the upper arms, and ankles bilaterally. Right brachial pressure: 1 21 mmHg Left brachial pressure 1 10 mmHg Right ankle pressure: 1 11 mmHg Right RYLAND 0.92 100 cc normal) Left ankle pressure, nonocclusive vessel. Finding suggests vessel hardening due to atherosclerotic va scular disease. Ultrasound evaluation of the major arteries of the right lower extremity was performed including colo r Doppler imaging with spectral analysis. Right common femoral artery appears be patent. There is a r ight femoral to below the knee popliteal bypass graft. The graft is patent. The viejas superficial fe moral artery remains occluded. There is monophasic flow noted in the popliteal artery beyond the dist al anastomosis. Proximal posterior tibial artery appears be patent the distal posterior tibial artery is occluded. The anterior tibial artery is patent. The dorsalis pedis artery is patent. The posterio r tibial artery was found to be chronically occluded on angiography from June 2020. The anterior ti bial artery and dorsalis pedis artery is dominant blood supply to the foot. The peroneal artery is po gabriel visualized by ultrasound on today's exam. IMPRESSION: 1. Normal ankle brachial index on the right. Noncompressible in the left. 2. Duplex ultrasound findings demonstrate patent right femoral to [id number] popliteal artery byp ass graft. The anterior tibial artery and dorsalis pedis artery are patent. The posterior tibial cecy ry is chronically occluded consistent with findings on prior angiogram. The peroneal artery is nonvis ualized. Electronically signed by: Boyd Mayer MD (01/19/2021 10:47 AM) [id number]
--- NOTE | 2021-01-19 10:49 | RAD ---
01/19/2021 Ankle brachial indices Right lower extremity arterial duplex ultrasound INDICATION: Evaluate bypass graft Discussion: Blood pressure measurements were obtained in the upper arms, and ankles bilaterally. Right brachial pressure: 1 21 mmHg Left brachial pressure 1 10 mmHg Right ankle pressure: 1 11 mmHg Right RYLAND 0.92 100 cc normal) Left ankle pressure, nonocclusive vessel. Finding suggests vessel hardening due to atherosclerotic va scular disease. Ultrasound evaluation of the major arteries of the right lower extremity was performed including colo r Doppler imaging with spectral analysis. Right common femoral artery appears be patent. There is a r ight femoral to below the knee popliteal bypass graft. The graft is patent. The [place] superficial fe moral artery remains occluded. There is monophasic flow noted in the popliteal artery beyond the dist al anastomosis. Proximal posterior tibial artery appears be patent the distal posterior tibial artery is occluded. The anterior tibial artery is patent. The dorsalis pedis artery is patent. The posterio r tibial artery was found to be chronically occluded on angiography from June 2020. The anterior ti bial artery and dorsalis pedis artery is dominant blood supply to the foot. The peroneal artery is po gabriel visualized by ultrasound on today's exam. IMPRESSION: 1. Normal ankle brachial index on the right. Noncompressible in the left. 2. Duplex ultrasound findings demonstrate patent right femoral to [id number] popliteal artery byp ass graft. The anterior tibial artery and dorsalis pedis artery are patent. The posterior tibial cecy ry is chronically occluded consistent with findings on prior angiogram. The peroneal artery is nonvis ualized. Electronically signed by: Boyd Mayer MD (01/19/2021 10:47 AM) [id number]
== END ==
LOC: US 09:13
PROVIDERS: ATTEND Specialist
DX: I77.89 Other specified disorders of arteries and arterioles (principal)
CPT/HCPCS: 93922; 93926

== ENCOUNTER → 2022-03-20 | Outpatient (CLI) | payer OTHER ==
[~2022-03-20] MED LIST changes: +CYCL10TA19 PO; -CYCL10TA2 PO; +GADOTERATE 7.5 MMOL/15ML VIAL. IVP ONE
[2022-03-20 14:41] LABS: CREATININE 0.6 mg/dL (0.6-1.0); GFR 107.6
--- NOTE | 2022-03-20 16:04 | RAD ---
Examination: MRI of the right forefoot without and with IV contrast HISTORY: History of nonhealing diabetic foot wound COMPARISON: None TECHNIQUE: Multiplanar, multisequence MR imaging of the right forefoot was performed without and with IV contrast. IV contrast used was 15 mL clariscan Findings: The alignment of the metatarsophalangeal, interphalangeal joints grossly appears unremarkable. There is low T1 signal identified in the distal aspect of the distal phalanx of the first toe without evide nce of increased T2 signal or enhancement could be osteomyelitis, age indeterminate or chronic erosio n. Small soft tissue wound identified plantar to the head of the first metatarsal with low T1 signal charley ntified in the distal aspect of the bipartite lateral sesamoid could be sesamoiditis or osteomyelitis in the lateral sesamoid. IMPRESSION: 1. Small soft tissue wound identified plantar to the head of the first metatarsal with low T1 signal identified in the distal aspect of the bipartite lateral sesamoid could be sesamoiditis or osteomyel itis in the lateral sesamoid. 2. Low T1 signal identified in the distal aspect of the distal phalanx of the first toe without brayden dence of increased T2 signal or enhancement could be osteomyelitis, age indeterminate or chronic eros ion. Consider triphasic bone scan for further evaluation. Electronically signed by: Terrance Hutchins MD (03/20/2022 4:01 PM) [id number]
== END ==
LOC: MRI 13:22
PROVIDERS: ATTEND Anesthesiology Hospice and Palliative Medicine
DX: S91.301A Unspecified open wound, right foot, initial encounter (principal); E11.621 Type 2 diabetes mellitus with foot ulcer; X58.XXXA Exposure to other specified factors, initial encounter; Y93.89 Activity, other specified; Y92.89 Other specified places as the place of occurrence of the external cause; Y99.8 Other external cause status
CPT/HCPCS: 36415; 73718; 82565; A9575

== ENCOUNTER 2022-04-05 08:44 | Outpatient (CLI) | payer OTHER ==
[2022-04-05] VITALS (11 sets, daily range): BP systolic 105–149; BP diastolic 60–85
[~2022-04-05] VITALS: Ht 180.3 cm; Wt 95.0 kg
[~2022-04-05 08:44] MED LIST changes: -GADOTERATE 7.5 MMOL/15ML VIAL. IVP ONE
[2022-04-05 09:20] LABS: BASO # 0.1 x10^3/uL (0.0-0.2); BASO % 1 % (0-3); EOS # 0.1 x10^3/uL (0.0-0.7); EOS % 2 % (0-3); HEMATOCRIT 47.3 % (36.0-47.0); LYMPH # 2.3 x10^3/uL (1.0-4.8); LYMPH % 29 % (24-48); MEAN CORPUSCULAR HEMOGLOBIN 30 pg (25-35); MEAN CORPUSCULAR HGB CONC 34 g/dL (31-37); MEAN CORPUSCULAR VOLUME 89 fL (79-100); MONO # 0.5 x10^3/uL (0.0-1.1); MONO % 6 % (0-9); NEUT # 4.8 x10^3/uL (1.8-7.7); NEUT % 62 % (31-73); PLATELET COUNT 251 x10^3/uL (140-400); RED BLOOD COUNT 5.31 x10^6/uL (3.50-5.40); RED CELL DISTRIBUTION WIDTH 13.4 % (11.5-14.5); WHITE BLOOD COUNT 7.8 x10^3/uL (4.0-11.0)
[2022-04-05] MEDS ORDERED: FAMO-161 PO (09:30)
[2022-04-05 09:32] LABS: CALCIUM 9.9 mg/dL (8.5-10.1); CREATININE 0.6 mg/dL (0.6-1.0); GFR 107.6; POTASSIUM 4.7 mmol/L (3.5-5.1)
[2022-04-05 09:35] LABS: PROTHROMBIN TIME PATIENT 11.4 SEC (11.7-14.0)
[2022-04-05] MEDS ORDERED: LIDOCAINE WITH 8.4% SOD BICARB 3 ML DISP.SYRIN. ONE (10:15)
[2022-04-05] MEDS ORDERED: IODIXANOL 320 MG/ML 100 ML VIAL. ONE (10:16)
[2022-04-05] MEDS ORDERED: HEPARIN for ARTERIAL LINE 1,500 ML ONE (10:16)
[2022-04-05] MEDS ORDERED: IODIXANOL 320 MG/ML 50ML VIAL. ONE ×2 (10:17→13:04)
[2022-04-05] MEDS ORDERED: HEPARIN for IV BOLUS 10,000 UNIT/10 ML VIAL. ONE (10:56)
[2022-04-05] MEDS ORDERED: fentaNYL PF VIAL 100 MCG/2 ML VIAL ONE ×2 (10:56→12:17)
[2022-04-05] MEDS ORDERED: MIDAZOLAM HCL/PF 2 MG/2 ML VIAL. ONE ×2 (10:56→12:17)
[2022-04-05] MEDS ORDERED: IODIXANOL 320 MG/ML 50ML VIAL. IART ONE (11:30)
[2022-04-05] MEDS ORDERED: LIDOCAINE WITH 8.4% SOD BICARB 3 ML DISP.SYRIN. IJ ONE (11:30)
[2022-04-05] MEDS ORDERED: IODIXANOL 320 MG/ML 100 ML VIAL. IART ONE (11:30)
[2022-04-05] MEDS ORDERED: fentaNYL PF VIAL 100 MCG/2 ML VIAL IV ONE (11:30)
[2022-04-05] MEDS ORDERED: MIDAZOLAM HCL/PF 2 MG/2 ML VIAL. IV ONE (11:30)
[2022-04-05] MEDS ORDERED: CONTRAST GIVEN. MC PRN (11:45)
[2022-04-05] MEDS ORDERED: HEPARIN for IV BOLUS 10,000 UNIT/10 ML VIAL. IV ONE (12:00)
[2022-04-05] MEDS ORDERED: NITROGLYCERIN 200 MCG/2 ML SYRINGE FOR CATH/VASC LAB. IART ONE (12:00)
[2022-04-05] MEDS ORDERED: CLOPIDOGREL BISULFATE 75 MG TABLET PO ONE (15:45)
[2022-04-05] MEDS ORDERED: CLOPIDOGREL BISULFATE 75 MG TABLET ONE (16:03)
[2022-04-05] MEDS ORDERED: NITROGLYCERIN 200 MCG/2 ML SYRINGE FOR CATH/VASC LAB. ONE (16:03)
--- NOTE | 2022-04-05 16:15 | NUR ---
Plavix 75mg called in to [facility]. NEETU RN
--- NOTE | 2022-04-05 16:26 | NUR ---
Discharge Note: AMAYA NEVAREZ Discharge instructions and discharge home medications reviewed with Patient and a copy given. All questions have been answered and understanding verbalized. Dressing to L groin clean and dry The following instructions and handouts were given: groin site care, sedation Prescription for Plavix 75mg called in to [facility] Discontinued lines and drains: Peripheral IV intact. Patient discharged to Home or Self Care with Family Member via Wheelchair [facility] ODELL Addendum: 04/05/22 at [address] RN Amended: Links added.
[2022-04-06] MEDS ORDERED: CLOPIDOGREL BISULFATE 75 MG TABLET PO SCH (08:00)
--- NOTE | 2022-04-10 10:52 | RAD ---
04/10/2022 1. Abdominal aortogram 2. Pelvic angiography 3. Right lower extremity angiography 4. Angioplasty, proximal femoral distal bypass graft 5. Angioplasty right anterior tibial artery Indication: 47-year-old female with severe peripheral vascular disease. Poorly wound, right foot. Consent: The procedure was explained in its entirety to the patient or the patients designated repres entative by a member of the treatment team, including a discussion of the risks, benefits and commonl y accepted alternatives to the procedure, as well as the expected consequences of no therapy whatsoev er. Discussion of the risks included, but was not limited to, those that are most frequent and thos e that are rare but possibly severe or life-threatening, as well as the possibility of unforeseen com plications. The left groin was prepped and draped using maximum sterile barrier technique. 1% lidocaine was admin istered for local anesthesia. Ultrasound evaluation demonstrates a left common femoral artery be membreno nt. The artery was accessed using direct ultrasound guidance and micropuncture technique. Reference u ltrasound images were saved medical record. 5 Persian vascular sheath was placed. Abdominal aortogram was obtained demonstrating tapering of the d istal abdominal aorta. No aneurysm or dissection is seen. Visualized mesenteric arteries are unremark able. Inferior abdominal aorta and angiograms repeated. Diffusely small arteries are noted. Right common iliac artery, and external iliac artery are patent. Right internal iliac artery are patent. Postoperative changes in the right groin consistent with a fe morofemoral distal bypass noted. Distal anastomosis below the knee in the distalmost popliteal artery . Catheter was repositioned in the bypass graft. There is a 80 % stenosis in the proximal bypass santo t. The remainder of the graft is patent. Multiple near occlusions of the right anterior tibial artery were seen. There is single vessel runoff to the foot. Some reconstitution of peroneal artery is seen distally. The posterior tibial artery is chronically occluded. An 014 guidewire was gently advanced into the dorsalis pedis artery without resistance. Angioplasty w as performed throughout the anterior tibial artery distally up to 2.5 mm, proximal to 3 mm is improve d flow through the anterior tibial artery. Following balloon angioplasty of the proximal bypass graft . The 5 mm, there is significantly improved morphology and flow. A minx device was deployed. No immed iate complications were identified. Impression: 1.High-grade narrowing within the proximal right-sided femoral distal pop bypass graft, successfully treated with balloon angioplasty 2. Multifocal anterior tibial artery stenosis, which is a single intact vessel to the foot, treated w [facility] balloon angioplasty Electronically signed by: Boyd Mayer MD (04/10/2022 10:49 AM) [id number]
== END 2022-04-05 16:15 | disposition home or self-care (01) ==
LOC: INTRAD 08:44
PROVIDERS: ATTEND Emergency Medicine Undersea and Hyperbaric Medicine
DX: I73.9 Peripheral vascular disease, unspecified (principal); E78.00 Pure hypercholesterolemia, unspecified; E11.9 Type 2 diabetes mellitus without complications; G47.30 Sleep apnea, unspecified; K21.9 Gastro-esophageal reflux disease without esophagitis; F41.9 Anxiety disorder, unspecified; F32.9 Major depressive disorder, single episode, unspecified; M19.90 Unspecified osteoarthritis, unspecified site; E66.9 Obesity, unspecified; F17.210 Nicotine dependence, cigarettes, uncomplicated; Z79.4 Long term (current) use of insulin; Z79.899 Other long term (current) drug therapy; Z98.890 Other specified postprocedural states
CPT/HCPCS: 36415; 37224; 37228; 75625; 75710; 76937; 80048; 85025; 85610; 99152; 99153; C1713; C1725; C1769; C1892; C1894; J1644; J2250; J3010; J3490; Q9967